=== PATIENT | male | born 1955 | race Caucasian/White ===

== ENCOUNTER 2017-09-30 17:13 | Emergency (ER) | payer MEDICAID, SELFPAY ==
[2017-09-30 17:15] VITALS: BP 145/78; PULSE 83; RESP 16; TEMP 36.6; O2SAT 97; BMI 28.0
--- NOTE | 2017-09-30 18:18 | ED.DCSUM_ITS ---
- ER Visit Summary Date of Service: 09/30/17 Chief Complaint: Postop pain History of Present Illness: The patient is a 62 M who had skin cancer removed from his upper back yesterday at the [facility]. Patient states he was told to take Tylenol ibuprofen but that is not controlling his pain. He has not noted fever or drainage from the wound. Physical Examination: Vital signs are unremarkable. Patient sitting on the side of the bed. He is in no acute distress. Head neck examination is significant for cataract to the right eye. Heart is regular rate and rhythm. Lung sounds are clear. Abdomen is soft nontender. Back examination was a 5 cm linear incision with 7 intact sutures over the upper back. There is no surrounding erythema. There is no drainage from the wound. Test Results: [] Emergency Department Course and Treatment: I did do an oars report. Patient has had no prescriptions the past year and his last prescription and orders was in 2014. Patient be given a short course of Ruffin with first dose given here. Treatment Plan: [] Disposition: Discharge Impression: Postop pain This note was generated with [employer] dictation software. It may contain incorrect words, spelling, and punctuation that were not noted in review of the chart prior to signing ED Disposition - Plan for ED Patient: Disposition: Home or Assisted Living Chief Complaint: Other, Pain/Inj Instructions: ED Post Op Pain Prescriptions: Hydrocodone Bitart/Apap 5-325 [Ruffin 5/325] 1 - 2 tablet PO Q6H PRN PRN 4 Days # 20 tablet PRN Reason: Pain Additional Instructions: Follow-up with your surgeon
--- NOTE | 2017-09-30 18:18 | ED.DEP ---
ED Disposition - Plan for ED Patient: Disposition: Home or Assisted Living Chief Complaint: Other, Pain/Inj Instructions: ED Post Op Pain Prescriptions: Hydrocodone Bitart/Apap 5-325 [[place] 5/325] 1 - 2 tablet PO Q6H PRN PRN 4 Days #20 tablet PRN Reason: Pain Additional Instructions: Follow-up with your surgeon
--- NOTE | 2017-09-30 18:22 | DCINST.ED_ITS ---
ED Disposition - Plan for ED Patient: Disposition: Home or Assisted Living Chief Complaint: Other, Pain/Inj Instructions: ED Post Op Pain Prescriptions: Hydrocodone Bitart/Apap 5-325 [[place] 5/325] 1 - 2 tablet PO Q6H PRN PRN 4 Days # 20 tablet PRN Reason: Pain Additional Instructions: Follow-up with your surgeon
[2017-09-30] MEDS: HYDROcodone Bitartrate/Apap 5/325 Tablet PO (18:40)
[2017-09-30 18:43] VITALS: BP 141/67; PULSE 52; RESP 16; O2SAT 98
== END 2017-09-30 18:45 | disposition home or self-care (01) ==
PROVIDERS: Emergency Provider Emergency Medicine; Family Provider Physician Assistant; PCP Physician Assistant
DX: G89.18 Other acute postprocedural pain (principal); M54.9 Dorsalgia, unspecified; J44.9 Chronic obstructive pulmonary disease, unspecified; K21.9 Gastro-esophageal reflux disease without esophagitis; Z72.0 Tobacco use
CPT/HCPCS: 99283

== ENCOUNTER 2017-11-01 13:53 | Emergency (ER) | payer MEDICAID, SELFPAY ==
[2017-11-01 13:53] VITALS: BP 153/79; PULSE 71; RESP 16; TEMP 36.5; O2SAT 91; BMI 27.9
--- NOTE | 2017-11-01 14:00 | RAD_ITS ---
STUDY: X-RAY CHEST REASON FOR EXAM: Male, 62 years old. Cough TECHNIQUE: Single view of the chest was obtained COMPARISON: February 11, 2015 chest radiograph FINDINGS: Mild perihilar streaky opacities. Cardiac size is stable. Osseous structures demonstrate no acute abnormalities. Calcifications of the aortic knob. Apical lung scarring. Slightly elevated right hemidiaphragm. IMPRESSION: No evidence for focal airspace disease. Stable lung findings since previous examination Electronically Signed: Luis Daniel Moon, at 14:19 EDT Tel , Service support , RAD/Chest 1 View (Portable)
--- NOTE | 2017-11-01 14:02 | EKG12_ITS ---
Test Reason : COUGH Blood Pressure : / mmHG Vent. Rate : 075 BPM Atrial Rate : 075 BPM P-R Int : 164 ms QRS Dur : 094 ms QT Int : 400 ms P-R-T Axes : 067 062 029 degrees QTc Int : 446 ms Normal sinus rhythm Normal ECG Confirmed by ASHISH RAYO MD ([id number]), deputy editor in chief MAT BONDS ([id number]) on 11/04/2017 1:11:58 PM Referred By: ESTEFANIA Confirmed By:ASHISH RAYO MD
[2017-11-01] MEDS: Ipratropium/Albuterol Sulfate 3 ML AMPUL.NEB INHALATION (14:15)
[2017-11-01 14:16] VITALS: PULSE 72; RESP 18
--- NOTE | 2017-11-01 14:27 | ED.DCSUM_ITS ---
- ER Visit Summary Date of Service: 11/01/17 Chief Complaint: [] Chronic cough for weeks history of COPD History of Present Illness: The patient is a 62 M [] history of COPD chronic cough for weeks thick slightly blood-tinged. 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 He indicates he is on inhalers for COPD he presents because of the persistence of the harsh cough no runny nose no fever no history of [place] PE CHF no edema no weight gain Physical Examination: [] He has a cataract in the right eye related to a retinal detachment he is blind in that he is awake alert he has a harsh dry cough here his nose is clear the throat is unremarkable the neck is supple he has some rhonchi and wheezing diffusely but good excursion heart tones are normal the abdomen soft nontender upper lower extremity unremarkable he is awake alert moving all 4 Test Results: [] Emergency Department Course and Treatment: [] Patient's EKG shows a sinus rhythm nothing acute his chest x-ray and labs are generally unremarkable see those reports clinically he looks better he states he feels better he is no longer coughing, he has his inhalers at home, he will be given Kenalog 40 mg IM started on Levaquin 5 with his doctors the next 2 days return for change in symptoms he is very comfort this plan again feels better wants to go home Treatment Plan: [] Disposition: [] Home stable Impression: [] Acute exacerbation of COPD improved This note was generated with [employer] dictation software. It may contain incorrect words, spelling, and punctuation that were not noted in review of the chart prior to signing ED Disposition - Plan for ED Patient: Chief Complaint: Cough Referrals: Ric Coronado PA [Primary Care Provider] -
[2017-11-01] MEDS: 0.9% Normal Saline 1,000 ML 150 ML IV (14:30)
[2017-11-01 14:40] LABS: Absolute Lymphocyte Count 2.38 X10^3/ul (0.83-4.51); Absolute Neutrophil Count 6.3 X10^3/uL (2.0-7.7); Basophil# 0.05 X10^3/uL; Basophil% 0.5 % (0-1); Eosinophil# 0.27 X10^3/uL; Eosinophils% 2.7 % (0-5); Hematocrit 43.9 % (40-54); Hemoglobin 15.3 g/dl (13.0-16.5); Lymphocyte # 2.38 X10^3/ul (4.0); Lymphocyte % 23.4 % (19-41); Mean Corp Hgb Conc 34.9 g/gl (32-36); Mean Corpuscular Hgb 31.6 pg (27.0-32.0); Mean Corpuscular Volume 90.7 fL (80-94); Mean Platelet Vol. 11.5 fl (6.2-12.0); Monocyte# 1.18 X10^3/uL; Monocyte% 11.6 % (0-10); Neutrophil # 6.26 X10^3/uL (2.7-7.7); Neutrophil % 61.6 % (47-70); POSITIVE COUNT NO; POSITIVE DIFFERENTIAL NO; POSITIVE MORPHOLOGY NO; Platelet Count 261 K/mm3 (150-450); RBC Distribution Width CV 14.4 % (11.6-14.6); RBC Distribution Width SD 47.6 fl (35.1-43.9); Red Blood Count 4.84 M/mm3 (4.6-6.2); White Blood Count 10.2 K/mm3 (4.4-11.0)
[2017-11-01 14:44] VITALS: BP 149/75; PULSE 67; RESP 16; O2SAT 98
[2017-11-01 14:53] LABS: Anion Gap 6 (5-15); BUN 4 mg/dL (7-18); Calcium,Total 9.3 mg/dL (8.5-10.1); Chloride 106 mmol/L (98-107); Creatinine, Serum 0.81 mg/dL (0.70-1.30); EST Glomerular Filtration Rate 104 mL/min (>60); Est Glom Filt Rate - Afr Amer 126 mL/min (>60); Glucose 89 mg/dL (74-106); Potassium 3.8 mmol/L (3.5-5.1); Sodium Level 137 mmol/L (136-145)
--- NOTE | 2017-11-01 16:09 | ED.DEP ---
ED Disposition - Plan for ED Patient: Chief Complaint: Cough Instructions: ED Upper Resp Infec Abx Tx, ED COPD Flare Prescriptions: Levofloxacin [Levaquin] 750 mg PO DAILY #10 tab Referrals: Ric Coronado PA [Primary Care Provider] -
[2017-11-01 16:24] LABS: BNP,B-Type NATRIURETIC PEPTIDE 47.2 pg/mL (0-100)
[2017-11-01] MEDS: Triamcinolone Acetonide 40 MG/ML Vial IM (16:42)
[2017-11-01 16:49] VITALS: BP 173/79; PULSE 88; RESP 16; O2SAT 97
== END 2017-11-01 16:50 | disposition home or self-care (01) ==
PROVIDERS: Emergency Provider Emergency Medicine; Family Provider Physician Assistant; PCP Physician Assistant
DX: J44.1 Chronic obstructive pulmonary disease with (acute) exacerbation (principal); H54.40 Blindness, one eye, unspecified eye; H33.21 Serous retinal detachment, right eye
CPT/HCPCS: 71045; 80048; 83880; 84484; 85025; 93005; 94640; 96360; 96361; 96372; 99285; J7030; A4216

== ENCOUNTER 2018-01-14 05:37 | Emergency (ER) | payer MEDICAID, SELFPAY ==
[2018-01-14 05:37] VITALS: BP 163/87; PULSE 68; RESP 20; TEMP 36.9; O2SAT 99; BMI 29.7
--- NOTE | 2018-01-14 05:47 | CT_ITS ---
STUDY: CT ABDOMEN AND PELVIS WITH CONTRAST REASON FOR EXAM: Male, 62 years old. Abdominal pain and pressure. History of cirrhosis RADIATION DOSAGE (If Supplied By Facility): CTDIvol = ( 14.27 ) mGy, DLP = ( 1105.19 ) mGycm TECHNIQUE: Transaxial images were obtained from the dome of the diaphragm to the symphysis pubis with oral contrast. 100CC ml of Isovue 300 contrast was administered. Sagittal and coronal images were reconstructed. Individualized dose optimization techniques were used for this CT. COMPARISON: None. FINDINGS: The visualized lung bases are unremarkable. The visualized portions of the heart are within normal limits. Enlarged and heterogeneously enhancing liver with nodular contour suggesting cirrhosis. Normal gallbladder and extrahepatic biliary system. Normal spleen. Normal pancreas. Normal bilateral adrenal glands. Normal right kidney. Normal left kidney. Normal visualized stomach. Normal small intestine. There are multiple colonic diverticula consistent with diverticulosis. There is non-visualization of the appendix. There is diffuse atherosclerotic calcification of the abdominal aorta, without a demonstrated aneurysm. Normal inferior vena cava. Normal retroperitoneum. Normal urinary bladder. Normal visualized prostate gland. Fat-containing umbilical hernia with some areas of inflammation and also possibly containing a small vessel.. There are diffuse degenerative changes of the visualized lumbar spine. Cystic structure within the soft tissues overlying the right mid back measuring 4 x 2.8 cm, likely sebaceous cyst. CT/Abdomen/Pelvis WITH Contrast IMPRESSION: 1. Fat-containing umbilical hernia also containing a small vessel with some inflammation. 2. Cirrhotic appearance of the liver 3. No evidence of small bowel obstruction 4. Likely sebaceous cyst within the subcutaneous fat of the back Electronically Signed: Edis Alfaro DO at 7:49 EDT Tel , Service support ,
[2018-01-14] MEDS: 0.9% Normal Saline 1,000 ML 1000 ML IV (05:58)
[2018-01-14] MEDS: fentaNYL 100 MCG/2 ML Ampul 50 MCG IV ×2 (05:58→07:35)
[2018-01-14] MEDS: Ondansetron 4 MG/2 ML Vial IV (05:58)
--- NOTE | 2018-01-14 06:03 | ED.VISSUMM ---
- ER Visit Summary Date of Service: 01/14/18 Chief Complaint: Abdominal pain and History of Present Illness: The patient is a 62 M presents to the emergency department with abdominal pain and swelling. The patient has a history of hepatitis C. He states this was diagnosed about a year ago. The patient states that he has been following with Dr. Nunez, a GI specialist the [facility]. He states that he was seen about a week ago and was told that he may have cirrhosis. He is scheduled for an outpatient ultrasound, but has not had it done. He states over the past 2 days, he has had some increasing abdominal pain and fullness. He has been nauseated without vomiting. He denies any fevers or chills. Patient has had a prior history of appendectomy, but denies any other abdominal surgery. He has had no GI bleeding. He denies any shortness of breath. Physical Examination: Vital signs reviewed General: Well-nourished, well-developed Head: Normocephalic, atraumatic Eyes: Pupils equal and reactive, extraocular muscles intact Neck, supple, no lymphadenopathy Heart: Regular rate and rhythm Respiratory: No distress, clear bilaterally Abdomen: Soft, mildly tender in the right upper quadrant without rebound or guarding, nondistended, no peritoneal signs Back: Nontender Extremities: Nontender, no edema, no cords Skin: Normal color no rash Neuro: Alert and oriented, no focal or lateralizing deficits Test Results: [] Emergency Department Course and Treatment: The patient does not have evidence of significant ascites on physical examination. His abdomen is softly distended, but he is tender in his right upper quadrant. He has been nausea without vomiting. The patient will undergo screening labs. Is given analgesics and antiemetics. I am going to obtain a CT of the abdomen and pelvis to rule out dangerous process. This will be signed out to oncoming physician for disposition pending completion of the CT. I did review the CT, but the read is pending. There is some distention of the gallbladder. Patient will undergo right upper quadrant ultrasound. Treatment Plan: [] Disposition: Pending Impression: Abdominal pain This note was generated with [employer] dictation software. It may contain incorrect words, spelling, and punctuation that were not noted in review of the chart prior to signing ED Disposition - Plan for ED Patient: Chief Complaint: Abd Pain Referrals: Ric Coronado PA [Primary Care Provider] -
--- NOTE | 2018-01-14 06:06 | ED.DCSUM_ITS ---
- ER Visit Summary Date of Service: 01/14/18 Chief Complaint: Abdominal pain and History of Present Illness: The patient is a 62 M presents to the emergency department with abdominal pain and swelling. The patient has a history of hepatitis C. He states this was diagnosed about a year ago. The patient states that he has been following with Dr. Nunez, a GI specialist the [facility]. He states that he was seen about a week ago and was told that he may have cirrhosis. He is scheduled for an outpatient ultrasound, but has not had it done. He states over the past 2 days, he has had some increasing abdominal pain and fullness. He has been nauseated without vomiting. He denies any fevers or chills. Patient has had a prior history of appendectomy, but denies any other abdominal surgery. He has had no GI bleeding. He denies any shortness of breath. Physical Examination: Vital signs reviewed General: Well-nourished, well-developed Head: Normocephalic, atraumatic Eyes: Pupils equal and reactive, extraocular muscles intact Neck, supple, no lymphadenopathy Heart: Regular rate and rhythm Respiratory: No distress, clear bilaterally Abdomen: Soft, mildly tender in the right upper quadrant without rebound or guarding, nondistended, no peritoneal signs Back: Nontender Extremities: Nontender, no edema, no cords Skin: Normal color no rash Neuro: Alert and oriented, no focal or lateralizing deficits Test Results: [] Emergency Department Course and Treatment: The patient does not have evidence of significant ascites on physical examination. His abdomen is softly distended , but he is tender in his right upper quadrant. He has been nausea without vomiting. The patient will undergo screening labs. Is given analgesics and antiemetics. I am going to obtain a CT of the abdomen and pelvis to rule out dangerous process. This will be signed out to oncoming physician for disposition pending completion of the CT. I did review the CT, but the read is pending. There is some distention of the gallbladder. Patient will undergo right upper quadrant ultrasound. Treatment Plan: [] Disposition: Pending Impression: Abdominal pain This note was generated with [employer] dictation software. It may contain incorrect words, spelling, and punctuation that were not noted in review of the chart prior to signing ED Disposition - Plan for ED Patient: Chief Complaint: Abd Pain Referrals: Ric Coronado PA [Primary Care Provider] -
[2018-01-14 06:08] LABS: International Normalized Ratio 1.3; Prothrombin Time (Protime)PT. 15.9 SECONDS (11.7-14.9)
[2018-01-14 06:09] LABS: Partial Thromboplast Time 35.4 Seconds (24.1-36.2)
[2018-01-14 06:18] LABS: Mucous, Urine 0 SEEN /hpf (<or=2+); Red Blood Cells-Urine 0 SEEN /hpf (0-5); Squamous Epithelial Cells - UA 0 SEEN /hpf (0-5); White Blood Cells 0 SEEN /hpf (0-5)
[2018-01-14 06:18] LABS: ALB/GLOB Ratio 0.8 RATIO (0.9-2.4); AST(SGOT) 91 U/L (15-37); Alanine Aminotransfer ALT/SGPT 61 U/L (16-61); Albumin, Serum 3.2 g/dL (3.2-5.0); Alkaline Phosphatase 159 U/L (45-117); Anion Gap 7 (5-15); BUN 5 mg/dL (7-18); BUN/Creat Ratio 6.5 RATIO (10-20); Calcium,Total 8.8 mg/dL (8.5-10.1); Chloride 104 mmol/L (98-107); Creatinine, Serum 0.77 mg/dL (0.70-1.30); EST Glomerular Filtration Rate 110 mL/min (>60); Est Glom Filt Rate - Afr Amer 133 mL/min (>60); Estimated Creatinine Clearance 111.98 ml/min; Globulin 4.2 g/dL (2.2-4.2); Glucose 96 mg/dL (74-106); Lipase 303 U/L (73-393); Potassium 3.6 mmol/L (3.5-5.1); Protein, Total 7.4 g/dL (6.4-8.2); Sodium Level 139 mmol/L (136-145)
[2018-01-14 06:23] LABS: Absolute Lymphocyte Count 2.02 X10^3/ul (0.83-4.51); Absolute Neutrophil Count 5.9 X10^3/uL (2.0-7.7); Basophil# 0.07 X10^3/uL; Basophil% 0.7 % (0-1); Hematocrit 40.9 % (40-54); Hemoglobin 14.4 g/dl (13.0-16.5); Lymphocyte # 2.02 X10^3/ul (4.0); Lymphocyte % 20.5 % (19-41); Mean Corp Hgb Conc 35.2 g/gl (32-36); Mean Corpuscular Hgb 31.6 pg (27.0-32.0); Mean Corpuscular Volume 89.9 fL (80-94); Mean Platelet Vol. 11.7 fl (6.2-12.0); Monocyte# 1.64 X10^3/uL; Monocyte% 16.6 % (0-10); Neutrophil # 5.89 X10^3/uL (2.7-7.7); Neutrophil % 59.9 % (47-70); Platelet Count 202 K/mm3 (150-450); RBC Distribution Width SD 51.8 fl (35.1-43.9); Red Blood Count 4.55 M/mm3 (4.6-6.2); White Blood Count 9.9 K/mm3 (4.4-11.0)
[2018-01-14 06:25] LABS: Color, Urine Yellow (Yellow); Glucose, Dipstick Normal (Normal); Ketone-Dipstick Negative (Negative); Leukocyte Esterase-Dipstick Negative /ul (Negative); Nitrite-Dipstick Negative (Negative); Occult Blood-Urine Negative /ul (Negative); Protein-Dipstick Negative (Negative); Urine Bilirubin Dipstick Negative (Negative); Urine Clarity Clear (Clear); Urine Urobilinogen Normal (Normal)
[2018-01-14 06:37] LABS: Bacteria RARE /hpf (None Seen)
[2018-01-14 06:48] LABS: Differential Indicated SCAN CRITERIA MET; POSITIVE COUNT NO; POSITIVE DIFFERENTIAL YES; POSITIVE MORPHOLOGY NO
[2018-01-14 07:00] LABS: Differential Comment SCANNED
--- NOTE | 2018-01-14 07:20 | US_ITS ---
STUDY: ABDOMINAL ULTRASOUND - RIGHT UPPER QUADRANT REASON FOR VISIT: Male, 62 years old. Cholelithiasis TECHNIQUE: Ultrasound evaluation of the right upper quadrant was performed with real-time and static garcia-scale imaging. TECHNICAL QUALITY: Limited. Examination limited by bowel gas. COMPARISON: None. FINDINGS: Liver: The liver measures 18.8 cm. There is increased echogenicity consistent with fatty infiltration. The bile ducts are within normal limits. There is hepatic color flow. The direction of portal flow is hepatopetal. There is no demonstrated mass lesion. Gallbladder: Normal distended gallbladder. The gallbladder wall measures 3.3 mm. There is a positive sonographic Elizondo's sign. There is no pericholecystic fluid. There is biliary sludge dependent within the gallbladder. Common Bile Duct (C.B.D.): The common bile duct measures 8.0 mm. Pancreas: There is nonvisualization of the pancreas. Right Kidney: Normal size of the right kidney. The right kidney measures 11.7 cm. Normal renal cortex. The right cortex measures 1.0 cm. There is no demonstrated renal mass or cyst. There is no right hydronephrosis. US/Gallbladder IMPRESSION: Mild fatty infiltration of the liver. Gallbladder sludge with borderline wall thickening. Patient demonstrates positive sonographic Elizondo sign. No pericholecystic fluid. Electronically Signed: Edis Alfaro DO at 8:23 EDT Tel , Service support ,
[2018-01-14 07:27] VITALS: BP 175/73; PULSE 63; RESP 16; O2SAT 99
[2018-01-14] MEDS: Ketorolac 15 MG/ML Vial IV (07:35)
[2018-01-14 08:51] VITALS: BP 166/80; PULSE 62; RESP 16; O2SAT 98
--- NOTE | 2018-01-14 08:52 | ED.RN ---
REPORTS ITCHING TO TOP OF HEAD AND RED RASH- DR RAAUZ INFORMED AND BENADRYL ORDERED
[2018-01-14] MEDS: DiphenhydrAMINE 50 MG/ML Syringe 25 MG IV (08:55)
--- NOTE | 2018-01-14 09:33 | ED.DEP ---
ED Disposition - Plan for ED Patient: Chief Complaint: Abd Pain Instructions: ED Abdominal Pain Unkn Cause Male Prescriptions: Oxycodone [Oxyir] 5 mg PO Q6H PRN PRN 3 Days #10 tablet PRN Reason: Pain Ondansetron [Zofran Odt] 4 mg PO Q8H PRN PRN #10 tablet PRN Reason: Nausea Referrals: Zayda Garay MD [STAFF PHYSICIAN] - 2 Days Additional Instructions: Dr. Garay is recommending you have drain placed in gallbladder to relieve distension. You can return to the emergency department at any time or follow up with Dr. Garay in the office.
[2018-01-14 09:58] VITALS: BP 165/79; PULSE 65; RESP 16; O2SAT 98
== END 2018-01-14 09:59 | disposition home or self-care (01) ==
LOC: ED 05:58
PROVIDERS: Emergency Provider Emergency Medicine; Family Provider Physician Assistant; PCP Physician Assistant
DX: R10.9 Unspecified abdominal pain (principal); Z86.19 Personal history of other infectious and parasitic diseases; R11.0 Nausea; J44.9 Chronic obstructive pulmonary disease, unspecified; I10 Essential (primary) hypertension; K21.9 Gastro-esophageal reflux disease without esophagitis; Z72.0 Tobacco use
CPT/HCPCS: 74177; 76705; 80053; 81001; 83690; 85025; 85610; 85730; 99284; J7030; Q9967; A4216; J2405

== ENCOUNTER 2018-01-19 17:51 | Emergency (ER) | payer MEDICAID, SELFPAY ==
[2018-01-19 17:51] VITALS: BP 138/89; PULSE 70; RESP 18; TEMP 36.9; O2SAT 98; BMI 28.5
[2018-01-19 18:50] LABS: Absolute Lymphocyte Count 1.98 X10^3/ul (0.83-4.51); Absolute Neutrophil Count 4.2 X10^3/uL (2.0-7.7); Basophil# 0.06 X10^3/uL; Basophil% 0.8 % (0-1); Eosinophil# 0.23 X10^3/uL; Hematocrit 39.5 % (40-54); Hemoglobin 14.1 g/dl (13.0-16.5); Lymphocyte # 1.98 X10^3/ul (4.0); Lymphocyte % 25.6 % (19-41); Mean Corp Hgb Conc 35.7 g/gl (32-36); Mean Corpuscular Volume 89.6 fL (80-94); Mean Platelet Vol. 12.2 fl (6.2-12.0); Monocyte# 1.23 X10^3/uL; Monocyte% 15.9 % (0-10); Neutrophil % 54.4 % (47-70); POSITIVE COUNT NO; POSITIVE DIFFERENTIAL NO; POSITIVE MORPHOLOGY NO; Platelet Count 198 K/mm3 (150-450); RBC Distribution Width CV 15.5 % (11.6-14.6); RBC Distribution Width SD 50.6 fl (35.1-43.9); Red Blood Count 4.41 M/mm3 (4.6-6.2); White Blood Count 7.7 K/mm3 (4.4-11.0)
[2018-01-19 19:06] LABS: ALB/GLOB Ratio 0.8 RATIO (0.9-2.4); AST(SGOT) 69 U/L (15-37); Alanine Aminotransfer ALT/SGPT 49 U/L (16-61); Alkaline Phosphatase 146 U/L (45-117); Anion Gap 5 (5-15); BUN 4 mg/dL (7-18); BUN/Creat Ratio 5.1 RATIO (10-20); Calcium,Total 9.1 mg/dL (8.5-10.1); Chloride 107 mmol/L (98-107); Creatinine, Serum 0.78 mg/dL (0.70-1.30); EST Glomerular Filtration Rate 108 mL/min (>60); Est Glom Filt Rate - Afr Amer 131 mL/min (>60); Estimated Creatinine Clearance 113.82 ml/min; Globulin 3.9 g/dL (2.2-4.2); Glucose 99 mg/dL (74-106); Lipase 265 U/L (73-393); Potassium 3.5 mmol/L (3.5-5.1); Protein, Total 6.9 g/dL (6.4-8.2); Sodium Level 140 mmol/L (136-145)
[2018-01-19] MEDS: Morphine 4 MG/ML Syringe IV (19:09)
[2018-01-19] MEDS: Ondansetron 4 MG/2 ML Vial IV (19:09)
--- NOTE | 2018-01-19 20:59 | ED.DCSUM_ITS ---
- ER Visit Summary Date of Service: 01/19/18 Chief Complaint: Abdominal pain History of Present Illness: The patient is a 62 M patient presenting for evaluation secondary to abdominal pain. Patient has an underlying history of hepatitis C and cirrhosis. Patient states over the course last week he has been dealing with abdominal pain in his right upper quadrant, it is continuous worse with palpation. He denies any's had any presence of fevers nausea vomiting or diarrhea. He was seen in the emerge C department for this week ago , and a surgical consult they recommended the patient receive a percutaneous drain of his gallbladder. Patient did not wish to be transferred for this, and opted to sign out AGAINST MEDICAL ADVICE and follow-up with Dr. Garay general surgery on Friday. She informed him that if he gets worse he needs to go to a tertiary care center where he could have a percutaneous drain placed, but did not mention anything about staging for removal of his gallbladder. Patient was confused by this, and states that he has been having persistent pain so he came back in today for repeat evaluation. Physical Examination: Physical exam unremarkable except for abdominal exam. Patient's abdomen is minimally distended with no guarding or rebound tenderness. There is tenderness in the right upper quadrant with positive Elizondo sign. Test Results: CBC unremarkable, chemistry shows evidence of elevated total bilirubin at 2.3. I reviewed the patient's ultrasound which shows gallbladder sludge with borderline wall thickening and no pericholecystic fluid last week Emergency Department Course and Treatment: Patient presented for evaluation secondary to continued abdominal pain. Patient does not have evidence of cholecystitis at this time is does not have significantly elevated liver enzymes , does not have elevated white blood cell count, and his pain really has not changed. I reviewed the patient's case with Dr. Tenorio, who was able to access the patient's records and it is thought that given the patient's hepatitis C and cirrhosis that he potentially is a 2 complicated case to be managed at this facility and potentially will be required to be staged for removal of his gallbladder at a later date a tertiary care center. He is already getting workup for his cirrhosis at [facility], patient was recommended to continue this workup. He was sent home with a very short course of [place]. Disposition: Discharge Impression: 1. Right upper quadrant abdominal pain This note was generated with [employer] dictation software. It may contain incorrect words, spelling, and punctuation that were not noted in review of the chart prior to signing ED Disposition - Plan for ED Patient: Disposition: Home or Assisted Living Chief Complaint: Abd Pain Diagnosis: Abdominal pain Instructions: ED Abdominal Pain Unkn Cause Prescriptions: Hydrocodone Bitart/Apap 5-325 [[place] 5MG-325MG] 1 tab PO Q6H PRN PRN 3 Days #12 tab PRN Reason: Pain Additional Instructions: Followup with Dr. Nunez in [place]
[2018-01-19 21:17] VITALS: BP 139/77; PULSE 71; O2SAT 97
[2018-01-19] MEDS: HYDROcodone Bitartrate/Apap 5/325 Tablet PO (21:20)
== END 2018-01-19 21:24 | disposition home or self-care (01) ==
PROVIDERS: Emergency Provider Emergency Medicine; Family Provider Physician Assistant; PCP Physician Assistant
DX: R10.9 Unspecified abdominal pain (principal); R10.11 Right upper quadrant pain; Z86.19 Personal history of other infectious and parasitic diseases
CPT/HCPCS: 80053; 83690; 85025; 96374; 96375; 99284; J2405

== ENCOUNTER 2018-01-26 16:12 | Emergency (ER) | payer MEDICAID, SELFPAY ==
[2018-01-26 16:13] VITALS: BP 138/89; PULSE 83; RESP 18; TEMP 37; O2SAT 98; BMI 28.0
--- NOTE | 2018-01-26 16:29 | VDLE_ITS ---
Reason For Study: LEG SWELLING RIGHT GSV is normal. CFV is compressible, spontaneous, phasic, competent and demonstrates normal augmentation. FV is compressible, spontaneous, phasic, competent and demonstrates normal augmentation. POP V is compressible, spontaneous, phasic, competent and demonstrates normal augmentation. T/P Trunk is compressible. PTV is compressible. RT PerV is compressible. Procedure Exam performed portable in ED. A preliminary report was called and/or faxed to ED Dr. Interpretation Summary There is no evidence of right lower extremity deep vein thrombosis. Right greater saphenous vein appears patent and compressible segmentally. Ordering Physician: Estiven Aquino Referring Physician: Kush Coronado Performed By: Janessa Michel RVT
--- NOTE | 2018-01-26 16:30 | ED.VISSUMM ---
- ER Visit Summary Date of Service: 01/26/18 Chief Complaint: Abdominal pain History of Present Illness: The patient is a 62 M who presents with abdominal pain is been gone on chronically worse in the last 3 weeks apparently has some gallbladder issues but because of his cirrhosis he cannot get that surgery really. He also told me that his right leg was swollen about 5 days ago however that improved. No fever chills no cough no congestion. He practically told me that he is here because he is hurting and cannot get any pain control anywhere. Physical Examination: Not appear in acute distress. Moist mucous membranes, no obvious facial deformity No C-spine tenderness supple neck. Regular rate and rhythm without any obvious murmurs Clear lungs bilaterally speaking in full sentences without any obvious respiratory distress Abdomen soft and slight right upper quadrant pain no guarding or rebound no fluid wave Moves all extremities without any difficulty or pain. Skin does not show any obvious rashes or lesions, no trauma. Alert oriented ?3 with no gross focal deficit Emergency Department Course and Treatment: [Patient has an unremarkable DVT study, his blood work is unremarkable except for hyperbilirubinemia. He appears well he wants pain control which I will provide. Otherwise needs to follow-up. 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 It may contain incorrect words, spelling, and punctuation that were not noted in review of the chart prior to signing ED Disposition - Plan for ED Patient: Disposition: Home or Assisted Living Chief Complaint: Abd Pain Instructions: ED Abdominal Pain Unkn Cause Prescriptions: Hydrocodone Bitart/Apap 5-325 [[place] 5/325] 1 - 2 tab PO Q4H PRN PRN #12 tab PRN Reason: Pain Referrals: Ric Coronado PA [Primary Care Provider] -
--- NOTE | 2018-01-26 16:33 | ED.DCSUM_ITS ---
- ER Visit Summary Date of Service: 01/26/18 Chief Complaint: Abdominal pain History of Present Illness: The patient is a 62 M who presents with abdominal pain is been gone on chronically worse in the last 3 weeks apparently has some gallbladder issues but because of his cirrhosis he cannot get that surgery really. He also told me that his right leg was swollen about 5 days ago however that improved. No fever chills no cough no congestion. He practically told me that he is here because he is hurting and cannot get any pain control anywhere. Physical Examination: Not appear in acute distress. Moist mucous membranes, no obvious facial deformity No C-spine tenderness supple neck. Regular rate and rhythm without any obvious murmurs Clear lungs bilaterally speaking in full sentences without any obvious respiratory distress Abdomen soft and slight right upper quadrant pain no guarding or rebound no fluid wave Moves all extremities without any difficulty or pain. Skin does not show any obvious rashes or lesions, no trauma. Alert oriented ?3 with no gross focal deficit Emergency Department Course and Treatment: [Patient has an unremarkable DVT study, his blood work is unremarkable except for hyperbilirubinemia. He appears well he wants pain control which I will provide. Otherwise needs to follow-up. 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 It may contain incorrect words, spelling, and punctuation that were not noted in review of the chart prior to signing ED Disposition - Plan for ED Patient: Disposition: Home or Assisted Living Chief Complaint: Abd Pain Instructions: ED Abdominal Pain Unkn Cause Prescriptions: Hydrocodone Bitart/Apap 5-325 [[place] 5/325] 1 - 2 tab PO Q4H PRN PRN #12 tab PRN Reason: Pain Referrals: Ric Coronado PA [Primary Care Provider] -
[2018-01-26 17:07] LABS: ALB/GLOB Ratio 0.7 RATIO (0.9-2.4); AST(SGOT) 65 U/L (15-37); Alanine Aminotransfer ALT/SGPT 45 U/L (16-61); Albumin, Serum 2.9 g/dL (3.2-5.0); Alkaline Phosphatase 156 U/L (45-117); Anion Gap 7 (5-15); BUN 4 mg/dL (7-18); BUN/Creat Ratio 5.2 RATIO (10-20); Calcium,Total 8.6 mg/dL (8.5-10.1); Chloride 108 mmol/L (98-107); Creatinine, Serum 0.77 mg/dL (0.70-1.30); EST Glomerular Filtration Rate 110 mL/min (>60); Est Glom Filt Rate - Afr Amer 133 mL/min (>60); Globulin 4.4 g/dL (2.2-4.2); Glucose 105 mg/dL (74-106); Lipase 212 U/L (73-393); Potassium 3.4 mmol/L (3.5-5.1); Protein, Total 7.3 g/dL (6.4-8.2); Sodium Level 140 mmol/L (136-145)
[2018-01-26 18:34] VITALS: BP 156/77; PULSE 73; RESP 16; O2SAT 97
== END 2018-01-26 18:35 | disposition home or self-care (01) ==
PROVIDERS: Emergency Provider Emergency Medicine; Family Provider Physician Assistant; PCP Physician Assistant
DX: R10.9 Unspecified abdominal pain (principal); G89.29 Other chronic pain; K74.60 Unspecified cirrhosis of liver; B19.20 Unspecified viral hepatitis C without hepatic coma
CPT/HCPCS: 80053; 83690; 93971; 99283; A4216

== ENCOUNTER 2018-01-31 20:43 | Emergency (ER) | payer MEDICAID, SELFPAY ==
[2018-01-31 20:45] VITALS: BP 144/71; PULSE 81; RESP 18; TEMP 36.8; O2SAT 98; BMI 28.6
--- NOTE | 2018-01-31 21:09 | ED.VISSUMM ---
- ER Visit Summary Date of Service: 01/31/18 Chief Complaint: Right lower extremity swelling History of Present Illness: The patient is a 62 M recently diagnosed with cirrhosis. Patient complains of right leg swelling for the past couple of weeks. He was seen in the ER for the same on January 26 and had a negative DVT study. Patient states his leg is still swollen and is now swollen down onto the top of his foot. He describes the pain as throbbing. He has not been elevating his legs. He does admit that the swelling seems to be better when he first gets up in the morning and then worsens throughout the day. Physical Examination: Vital signs unremarkable. Patient sitting upright in bed no acute distress. Heart is regular rate and rhythm. Lower extreme examination reveals 2+ edema to the right lower extremity distal to the knee. There is 3+ edema to the right foot. Normal skin coloration is noted. He has strong distal pulses. Test Results: [] Emergency Department Course and Treatment: Alex wrap with gentle compression is applied from the foot to the knee. He is to elevate his feet tonight. He is given a single dose of [place] here without further prescription. He will return tomorrow for repeat DVT study, although my suspicion is low as he did have a negative study last week. Treatment Plan: [] Disposition: Discharge Impression: Lower extremity edema This note was generated with [employer] dictation software. It may contain incorrect words, spelling, and punctuation that were not noted in review of the chart prior to signing ED Disposition - Plan for ED Patient: Chief Complaint: Lower Extremity Injury Referrals: Ric Coronado PA [Primary Care Provider] -
--- NOTE | 2018-01-31 21:12 | ED.DEP ---
ED Disposition - Plan for ED Patient: Disposition: Home or Assisted Living Chief Complaint: Lower Extremity Injury Instructions: ED Leg Swelling Unilateral Referrals: Ric Coronado PA [Primary Care Provider] - 5-7 Days
[2018-01-31 21:26] VITALS: BP 135/80; PULSE 85; RESP 14; O2SAT 99
[2018-01-31] MEDS: HYDROcodone Bitartrate/Apap 5/325 Tablet PO (21:29)
== END 2018-01-31 21:30 | disposition home or self-care (01) ==
PROVIDERS: Emergency Provider Emergency Medicine; Family Provider Physician Assistant; PCP Physician Assistant
DX: R60.0 Localized edema (principal); K74.60 Unspecified cirrhosis of liver; K21.9 Gastro-esophageal reflux disease without esophagitis; I10 Essential (primary) hypertension; E78.00 Pure hypercholesterolemia, unspecified; J44.9 Chronic obstructive pulmonary disease, unspecified; Z72.0 Tobacco use
CPT/HCPCS: 99283

== ENCOUNTER 2018-02-09 18:02 | Emergency (ER) | payer MEDICAID, SELFPAY ==
[2018-02-09 18:03] VITALS: BP 136/76; PULSE 80; RESP 18; TEMP 36.6; O2SAT 98; BMI 28.8
--- NOTE | 2018-02-09 19:12 | ED.VISSUMM ---
- ER Visit Summary Date of Service: 02/09/18 Chief Complaint: Abdominal pain History of Present Illness: The patient is a 62 M presenting with right upper quadrant abdominal pain. States this has been intermittent for the past 4 weeks. He has been seen in the ED and by Dr. Garay. He has been referred to [facility]. He states due to his cirrhosis and his hep C, Dr. Garay feels he needs a tertiary care center for his cholecystectomy. The surgeon at [facility] referred him to [facility] to see a liver specialist before surgery. He denies fever. He has nausea with no vomiting. Denies other complaints. He was previously taking [place] for his pain and ran out of his [place]away 10 days ago. Physical Examination: Vitals are stable. Patient is afebrile. Alert no acute distress. HEENT exam is unremarkable. Neck is supple. Lungs are clear and equal bilaterally. Heart is regular rate and rhythm. Abdomen is soft right upper quadrant tenderness with no rebound or guarding. Extremities are unremarkable. Skin is warm and dry. No focal neurologic deficit. Remainder of exam is unremarkable. Emergency Department Course and Treatment: Patient is given Dilaudid, Zofran IV with improvement. CBC and chemistries unremarkable. Liver enzymes show total bili 1.7, direct bili 0.9, AST 60, improved from previous. Alk phos is 205. Lipase 331. Gallbladder ultrasound shows gallbladder sludge without secondary evidence of acute cholecystitis. Patient is currently being worked up at [facility] for his liver disease and for cholecystectomy. He has an appointment with his liver specialist next week. He is advised to keep this appointment. He is given a short course of [place] for pain. Advised return to ED for any worsening complaints. Disposition: Discharge home Impression: Abdominal pain This note was generated with [employer] dictation software. It may contain incorrect words, spelling, and punctuation that were not noted in review of the chart prior to signing ED Disposition - Plan for ED Patient: Chief Complaint: Abd Pain Referrals: Ric Coronado PA [Primary Care Provider] -
[2018-02-09] MEDS: Ondansetron 4 MG/2 ML Vial IV (19:24)
[2018-02-09] MEDS: HYDROmorphone 1 MG/ML Syringe IV (19:24)
[2018-02-09 19:35] LABS: Absolute Lymphocyte Count 1.56 X10^3/ul (0.83-4.51); Absolute Neutrophil Count 4.8 X10^3/uL (2.0-7.7); Basophil# 0.05 X10^3/uL; Basophil% 0.6 % (0-1); Eosinophil# 0.22 X10^3/uL; Eosinophils% 2.7 % (0-5); Hemoglobin 13.7 g/dl (13.0-16.5); Lymphocyte # 1.56 X10^3/ul (4.0); Mean Corp Hgb Conc 34.3 g/gl (32-36); Mean Corpuscular Hgb 31.6 pg (27.0-32.0); Mean Corpuscular Volume 92.4 fL (80-94); Mean Platelet Vol. 12.3 fl (6.2-12.0); Monocyte# 1.57 X10^3/uL; Monocyte% 19.2 % (0-10); Neutrophil # 4.78 X10^3/uL (2.7-7.7); Neutrophil % 58.4 % (47-70); Platelet Count 195 K/mm3 (150-450); RBC Distribution Width CV 15.4 % (11.6-14.6); RBC Distribution Width SD 51.8 fl (35.1-43.9); Red Blood Count 4.33 M/mm3 (4.6-6.2); White Blood Count 8.2 K/mm3 (4.4-11.0)
[2018-02-09 19:48] LABS: AST(SGOT) 60 U/L (15-37); Alanine Aminotransfer ALT/SGPT 39 U/L (16-61); Albumin, Serum 3.1 g/dL (3.2-5.0); Alkaline Phosphatase 205 U/L (45-117); Anion Gap 7 (5-15); BUN 5 mg/dL (7-18); BUN/Creat Ratio 6.2 RATIO (10-20); Calcium,Total 8.3 mg/dL (8.5-10.1); Chloride 107 mmol/L (98-107); EST Glomerular Filtration Rate 104 mL/min (>60); Est Glom Filt Rate - Afr Amer 126 mL/min (>60); Estimated Creatinine Clearance 110.97 ml/min; Globulin 4.2 g/dL (2.2-4.2); Glucose 102 mg/dL (74-106); Lipase 331 U/L (73-393); Potassium 3.4 mmol/L (3.5-5.1); Protein, Total 7.3 g/dL (6.4-8.2); Sodium Level 138 mmol/L (136-145)
[2018-02-09 20:06] VITALS: BP 129/74; PULSE 75; RESP 14; O2SAT 98
[2018-02-09 20:16] LABS: Differential Indicated SCAN CRITERIA MET; POSITIVE COUNT NO; POSITIVE DIFFERENTIAL YES; POSITIVE MORPHOLOGY YES
[2018-02-09 20:21] LABS: Anisocytosis RARE; Macrocytosis RARE; Platelet Estimate ADEQUATE (ADEQ)
--- NOTE | 2018-02-09 21:58 | ED.DEP ---
ED Disposition - Plan for ED Patient: Chief Complaint: Abd Pain Instructions: ED Abdominal Pain Unkn Cause Prescriptions: Hydrocodone Bitart/Apap 5-325 [Bruce 5MG-325MG] 1 tablet PO Q6H PRN PRN 3 Days #10 tablet PRN Reason: Pain Referrals: Ric Coronado PA [Primary Care Provider] -
[2018-02-09 22:10] VITALS: BP 124/75; PULSE 72; RESP 14; O2SAT 98
[2018-02-10 15:00] LABS: Pathologist Review Reviewed
== END 2018-02-09 22:23 | disposition home or self-care (01) ==
PROVIDERS: Emergency Provider Emergency Medicine; Family Provider Physician Assistant; PCP Physician Assistant
DX: R10.11 Right upper quadrant pain (principal); I10 Essential (primary) hypertension; E78.00 Pure hypercholesterolemia, unspecified; Z72.0 Tobacco use; Z90.49 Acquired absence of other specified parts of digestive tract; K74.60 Unspecified cirrhosis of liver
CPT/HCPCS: 76705; 80048; 80076; 83690; 85025; 99283; A4216; J2405

== ENCOUNTER 2018-03-23 16:20 | Emergency (ER) | payer MEDICAID, SELFPAY ==
[2018-03-23 16:21] VITALS: BP 131/74; PULSE 84; RESP 16; TEMP 38.2; O2SAT 98; BMI 28.6
--- NOTE | 2018-03-23 16:53 | US_ITS ---
STUDY: ABDOMINAL ULTRASOUND - RIGHT UPPER QUADRANT REASON FOR VISIT: Male, 62 years old. Right upper quadrant pain TECHNIQUE: Ultrasound evaluation of the right upper quadrant was performed with real-time and static garcia-scale imaging. TECHNICAL QUALITY: Adequate. COMPARISON: 02/09/2018 FINDINGS: Liver: The liver measures 19.3 cm. There is increased echogenicity consistent with fatty infiltration. The bile ducts are within normal limits. There is hepatic color flow. The direction of portal flow is hepatopetal. There is no demonstrated mass lesion. Gallbladder: Normal distended gallbladder. The gallbladder wall measures 3 mm. There is a negative sonographic Elizondo's sign. There is no pericholecystic fluid. There are no gallstones. There is sludge again noted in the gallbladder. Common Bile Duct (C.B.D.): The common bile duct measures 8 mm. This is stable when compared with the prior exam. There are no ductal stones identified. Pancreas: Normal size of the head, body and tail of the pancreas. There is normal echogenicity of the pancreas. There is no demonstrated pancreatic mass or cyst. Right Kidney: Normal size of the right kidney. The right kidney measures 14.2 cm. Normal renal cortex. There is no demonstrated renal mass or cyst. There is no right hydronephrosis. US/Gallbladder IMPRESSION: Stable enlarged, fatty liver. No focal hepatic lesions identified. Redemonstration of gallbladder sludge. Otherwise, normal gallbladder. Stable mildly dilated common bile duct, measuring 8 mm. Electronically Signed: Ranjit Zahida, at 17:52 EDT Tel , Service support ,
--- NOTE | 2018-03-23 16:55 | ED.VIS.GEN ---
History of Present Illness Chief Complaint: Abd Pain Informant: Patient Onset: Weeks - 5-6 Context: Gradual Onset Timing: Continuous, Waxes and wanes Quality: dull Location: right mid-abd Current Severity: Severe Maximum Severity: Severe Worsened by: unknown Relieved by: nothing Associated Symptoms: n/v Narrative: Patient states he has been having this pain for 5 or 6 weeks, for about as long as he has known about having cirrhosis, presumably due to hepatitis C. He was seen here at this ER and diagnosed with gallbladder sludge that he was apparently symptomatic from, and the patient states that surgery was recommended, however given his hepatitis C, cirrhosis, and other risk factors, he was a very high risk patient and was sent to have an evaluation by a surgeon at [facility], who told him that the risks of surgery outweighed the potential benefits at the time. He has been having this pain ever since, but it became much worse last night around 20 hours ago. He has had subjective chills off and on for weeks, in addition to foul-smelling orange-discolored urine with urinary frequency for about 5 weeks. That is no different now. The pain in his right mid abdomen radiates around to his back at the same level. He has had prior appendectomy and another bowel surgery because of a small bowel obstruction, neither of those surgeries were in the past 2 months. He also has a history of COPD and has a chronic cough that is occasionally productive of phlegm. He denies any new dyspnea or chest discomfort. Prior similar symptoms: Yes - Past Medical History (1) Hepatitis C Status: Chronic (2) Hepatic cirrhosis Status: Chronic (3) Chronic obstructive lung disease Status: Chronic Past Medical History - Allergies and Home Meds Allergies/Adverse Reactions: Allergies ketorolac [From Toradol] Allergy (Verified 03/23/18 16:23) Hives morphine Adverse Reaction (Verified 03/23/18 16:23) Vomiting Primary Care Physician: Ric Coronado PA [Primary Care Provider] - Surgical History: appendectomy Smoking Status: Current every day smoker Review of Systems General: Denies: Chills, Fever, Sweats Eyes: Denies: Visual changes - bilaterally, Diplopia ENT: Denies: Bilateral ear pain, Rhinorrhea, Sore throat Cardiovascular: Denies: Chest pain, Palpitations, Heart racing Respiratory: Reports: Cough, Sputum. Denies: Dyspnea, Dyspnea on exertion, Orthopnea Gastrointestinal: Reports: Abdominal pain, Nausea, Vomiting. Denies: Diarrhea, Melena, Hematochezia Genitourinary: Reports: Frequency. Denies: Dysuria, Hematuria Musculoskeletal: Reports: Back pain, Swelling - bilat feet/ankles x 5wks. Denies: Neck pain, Extremity Pain Skin: Denies: Rash Neurological: Denies: Headache, Weakness, Numbness Psych: Denies: Suicidal thoughts, Suicidal ideations Endocrine: Denies: Polyuria, Polydipsia, Heat intolerance, Cold intolerance Allergy: Denies: Swelling of the mouth, Swelling of the tongue Physical Exam Vital Signs/Narrative: Vital Signs Temp Pulse Resp BP Pulse Ox 03/23/18 16:21 100.8 F H 84 16 131/74 H 98 Diagnostic/Tx/Re-eval Impressions Gallbladder Ultrasound 03/23/18 16:53 IMPRESSION: Stable enlarged, fatty liver. No focal hepatic lesions identified. Redemonstration of gallbladder sludge. Otherwise, normal gallbladder. Stable mildly dilated common bile duct, measuring 8 mm. Electronically Signed: Ranjit Zahida, at 17:52 EDT Tel , Service support , 03/23/18 16:53 Gallbladder [US] Stat Laboratory Results 03/23/18 03/23/18 03/23/18 16:35 16:35 17:40 WBC 9.0 RBC 4.35 L Hgb 13.6 Hct 39.6 L MCV 91.0 MCH 31.3 MCHC 34.3 RDW 14.6 RDW Differential 48.9 H Plt Count 208 MPV 12.2 H Immature Gran % (Auto) 0.200 Neut % (Auto) 69.4 Lymph % (Auto) 15.6 L Cottle % (Auto) 12.6 H Eos % (Auto) 1.5 Baso % (Auto) 0.7 Absolute Neuts (auto) 6.2 Absolute Lymphs (auto) 1.40 Total Counted Not Reportable Sodium 137 Potassium 3.1 L Chloride 104 Carbon Dioxide 24.0 Anion Gap 9 BUN 4 L Creatinine 0.80 Estim Creat Clear Calc 110.97 Est GFR (MDRD) Af Amer 127 Est GFR (MDRD) Non-Af 105 BUN/Creatinine Ratio 5.0 L Glucose 101 Calcium 8.5 Total Bilirubin 4.60 H AST 40 H ALT 24 Alkaline Phosphatase 163 H Total Protein 7.4 Albumin 3.1 L Globulin 4.3 H Albumin/Globulin Ratio 0.7 L Lipase 279 Urine Color Deanna Urine Clarity Clear Urine pH 7.0 Ur Specific [place] 1.015 Urine Protein 30 H Urine Glucose (UA) Normal Urine Ketones 15 H Urine Occult Blood 10 H Urine Nitrite Positive H Urine Bilirubin 6 H Urine Urobilinogen 12 H Ur Leukocyte Esterase 25 H Urine RBC 0-5 SEEN Urine WBC 10-25 SEEN Ur Squamous Epith Cells 5-10 SEEN Urine Bacteria 1+ Urine Mucus 1+ - Medical Decision Making Repeat ultrasound shows a negative sonographic Elizondo's, distended with sludge but otherwise unremarkable gallbladder ultrasound. His labs show significant bump in his total bilirubin at 4.7. His other liver enzymes are for the most part okay or better than 5 weeks ago. He has no leukocytosis. His urinalysis shows bilirubin, nitrite positive which could be a false positive because of bilirubin, some leukocyte esterase, and significant pyuria. He had a CT abdomen/pelvis last month that did not show anything acute. Given his fever, I think it is reasonable to treat him empirically for possible infection, culture is sent and pending. His pain was treated with fentanyl and later Dilaudid, and his pain with Zofran. This pain has been present for 5 weeks constant. There are no signs of acute cholecystitis here, and the ultrasound showed no hydronephrosis in the kidney so he does not have pyelo. I was able to discuss with Dr. Montalvo, leather products supervisor counter control operator for his doctor at [facility], Dr. Braulio Nunez, who given the scenario does not think he needs to be admitted emergently given the liver function and history of hepatitis C on new medication Mavyret. Patient is not on other new medications, including ribavirin. He recommends close outpatient follow-up with Dr. Nunez, in addition to repeat liver enzymes before the end of the week. He will call the office to request this, it is not known at this time if he has a standing order for repeat labs. Patient is comfortable with this plan. ED Disposition - Plan for ED Patient: Disposition: Home or Assisted Living Chief Complaint: Abd Pain Diagnosis: Right sided abdominal pain, Hepatitis C, Hepatic cirrhosis, Hyperbilirubinemia Instructions: ED Abdominal Pain Unkn Cause Prescriptions: proMETHazine tablet [Phenergan] 25 mg PO Q6H PRN PRN #10 tab PRN Reason: Nausea Referrals: Ric Coronado PA [Primary Care Provider] - Dr. Braulio Nunez [Other] (Call for follow-up appointment this week, as well as repeat liver enzymes to be done this week if possible. Continue your hepatitis medication as previously prescribed.)
--- NOTE | 2018-03-23 16:59 | ED.DCSUM_ITS ---
History of Present Illness Chief Complaint: Abd Pain Informant: Patient Onset: Weeks - 5-6 Context: Gradual Onset Timing: Continuous, Waxes and wanes Quality: dull Location: right mid-abd Current Severity: Severe Maximum Severity: Severe Worsened by: unknown Relieved by: nothing Associated Symptoms: n/v Narrative: Patient states he has been having this pain for 5 or 6 weeks, for about as long as he has known about having cirrhosis, presumably due to hepatitis C. He was seen here at this ER and diagnosed with gallbladder sludge that he was apparently symptomatic from, and the patient states that surgery was recommended, however given his hepatitis C, cirrhosis, and other risk factors, he was a very high risk patient and was sent to have an evaluation by a surgeon at [facility], who told him that the risks of surgery outweighed the potential benefits at the time. He has been having this pain ever since, but it became much worse last night around 20 hours ago. He has had subjective chills off and on for weeks, in addition to foul-smelling orange-discolored urine with urinary frequency for about 5 weeks. That is no different now. The pain in his right mid abdomen radiates around to his back at the same level. He has had prior appendectomy and another bowel surgery because of a small bowel obstruction, neither of those surgeries were in the past 2 months. He also has a history of COPD and has a chronic cough that is occasionally productive of phlegm. He denies any new dyspnea or chest discomfort. Prior similar symptoms: Yes - Past Medical History (1) Hepatitis C Status: Chronic (2) Hepatic cirrhosis Status: Chronic (3) Chronic obstructive lung disease Status: Chronic Past Medical History - Allergies and Home Meds Allergies/Adverse Reactions: Allergies ketorolac [From Toradol] Allergy (Verified 03/23/18 16:23) Hives morphine Adverse Reaction (Verified 03/23/18 16:23) Vomiting Primary Care Physician: Ric Coronado PA [Primary Care Provider] - Surgical History: appendectomy Smoking Status: Current every day smoker Review of Systems General: Denies: Chills, Fever, Sweats Eyes: Denies: Visual changes - bilaterally, Diplopia ENT: Denies: Bilateral ear pain, Rhinorrhea, Sore throat Cardiovascular: Denies: Chest pain, Palpitations, Heart racing Respiratory: Reports: Cough, Sputum. Denies: Dyspnea, Dyspnea on exertion, Orthopnea Gastrointestinal: Reports: Abdominal pain, Nausea, Vomiting. Denies: Diarrhea, Melena, Hematochezia Genitourinary: Reports: Frequency. Denies: Dysuria, Hematuria Musculoskeletal: Reports: Back pain, Swelling - bilat feet/ankles x 5wks. Denies: Neck pain, Extremity Pain Skin: Denies: Rash Neurological: Denies: Headache, Weakness, Numbness Psych: Denies: Suicidal thoughts, Suicidal ideations Endocrine: Denies: Polyuria, Polydipsia, Heat intolerance, Cold intolerance Allergy: Denies: Swelling of the mouth, Swelling of the tongue Physical Exam Vital Signs/Narrative: Vital Signs Temp Pulse Resp BP Pulse Ox 03/23/18 16:21 100.8 F H 84 16 131/74 H 98 Diagnostic/Tx/Re-eval Impressions Gallbladder Ultrasound 03/23/18 16:53 IMPRESSION: Stable enlarged, fatty liver. No focal hepatic lesions identified. Redemonstration of gallbladder sludge. Otherwise, normal gallbladder. Stable mildly dilated common bile duct, measuring 8 mm. Electronically Signed: Ranjit Zahida, at 17:52 EDT Tel , Service support , 03/23/18 16:53 Gallbladder [US] Stat Laboratory Results 03/23/18 03/23/18 03/23/18 16:35 16:35 17:40 WBC 9.0 RBC 4.35 L Hgb 13.6 Hct 39.6 L MCV 91.0 MCH 31.3 MCHC 34.3 RDW 14.6 RDW Differential 48.9 H Plt Count 208 MPV 12.2 H Immature Gran % (Auto) 0.200 Neut % (Auto) 69.4 Lymph % (Auto) 15.6 L [place] % (Auto) 12.6 H Eos % (Auto) 1.5 Baso % (Auto) 0.7 Absolute Neuts (auto) 6.2 Absolute Lymphs (auto) 1.40 Total Counted Not Reportable Sodium 137 Potassium 3.1 L Chloride 104 Carbon Dioxide 24.0 Anion Gap 9 BUN 4 L Creatinine 0.80 Estim Creat Clear Calc 110.97 Est GFR (MDRD) Af Amer 127 Est GFR (MDRD) Non-Af 105 BUN/Creatinine Ratio 5.0 L Glucose 101 Calcium 8.5 Total Bilirubin 4.60 H AST 40 H ALT 24 Alkaline Phosphatase 163 H Total Protein 7.4 Albumin 3.1 L Globulin 4.3 H Albumin/Globulin Ratio 0.7 L Lipase 279 Urine Color Deanna Urine Clarity Clear Urine pH 7.0 Ur Specific [place] 1.015 Urine Protein 30 H Urine Glucose (UA) Normal Urine Ketones 15 H Urine Occult Blood 10 H Urine Nitrite Positive H Urine Bilirubin 6 H Urine Urobilinogen 12 H Ur Leukocyte Esterase 25 H Urine RBC 0-5 SEEN Urine WBC 10-25 SEEN Ur Squamous Epith Cells 5-10 SEEN Urine Bacteria 1+ Urine Mucus 1+ - Medical Decision Making Repeat ultrasound shows a negative sonographic Elizondo's, distended with sludge but otherwise unremarkable gallbladder ultrasound. His labs show significant bump in his total bilirubin at 4.7. His other liver enzymes are for the most part okay or better than 5 weeks ago. He has no leukocytosis. His urinalysis shows bilirubin, nitrite positive which could be a false positive because of bilirubin, some leukocyte esterase, and significant pyuria. He had a CT abdomen/pelvis last month that did not show anything acute. Given his fever, I think it is reasonable to treat him empirically for possible infection, culture is sent and pending. His pain was treated with fentanyl and later Dilaudid, and his pain with Zofran. This pain has been present for 5 weeks constant. There are no signs of acute cholecystitis here, and the ultrasound showed no hyd ronephrosis in the kidney so he does not have pyelo. I was able to discuss with Dr. Montalvo, pharmacist in charge owner transportation design engineer for his doctor at [facility], Dr. Braulio Nunez, who given the scenario does not think he needs to be admitted emergently given the liver function and history of hepatitis C on new medication Mavyret. Patient is not on other new medications, including ribavirin. He recommends close outpatient follow-up with Dr. Nunez, in addition to repeat liver enzymes before the end of the week. He will call the office to request this, it is not known at this time if he has a standing order for repeat labs. Patient is comfortable with this plan. ED Disposition - Plan for ED Patient: Disposition: Home or Assisted Living Chief Complaint: Abd Pain Diagnosis: Right sided abdominal pain, Hepatitis C, Hepatic cirrhosis, Hyperbilirubinemia Instructions: ED Abdominal Pain Unkn Cause Prescriptions: proMETHazine tablet [Phenergan] 25 mg PO Q6H PRN PRN #10 tab PRN Reason: Nausea Referrals: Ric Coronado PA [Primary Care Provider] - Dr. Braulio Nunez [Other] (Call for follow-up appointment this week, as well as repeat liver enzymes to be done this week if possible. Continue your hepatitis medication as previously prescribed.)
[2018-03-23] MEDS: fentaNYL 100 MCG/2 ML Ampul 75 MCG IV (17:01)
[2018-03-23] MEDS: Ondansetron 4 MG/2 ML Vial IV (17:01)
[2018-03-23] MEDS: 0.9% Normal Saline 1,000 ML 125 ML IV (17:02)
[2018-03-23 17:20] LABS: Absolute Neutrophil Count 6.2 X10^3/uL (2.0-7.7); Basophil# 0.06 X10^3/uL; Basophil% 0.7 % (0-1); Eosinophil# 0.13 X10^3/uL; Eosinophils% 1.5 % (0-5); Hematocrit 39.6 % (40-54); Hemoglobin 13.6 g/dl (13.0-16.5); Lymphocyte % 15.6 % (19-41); Mean Corp Hgb Conc 34.3 g/gl (32-36); Mean Corpuscular Hgb 31.3 pg (27.0-32.0); Mean Platelet Vol. 12.2 fl (6.2-12.0); Monocyte# 1.13 X10^3/uL; Monocyte% 12.6 % (0-10); Neutrophil # 6.21 X10^3/uL (2.7-7.7); Neutrophil % 69.4 % (47-70); Platelet Count 208 K/mm3 (150-450); RBC Distribution Width CV 14.6 % (11.6-14.6); RBC Distribution Width SD 48.9 fl (35.1-43.9); Red Blood Count 4.35 M/mm3 (4.6-6.2)
[2018-03-23 17:21] LABS: ALB/GLOB Ratio 0.7 RATIO (0.9-2.4); AST(SGOT) 40 U/L (15-37); Alanine Aminotransfer ALT/SGPT 24 U/L (16-61); Albumin, Serum 3.1 g/dL (3.2-5.0); Alkaline Phosphatase 163 U/L (45-117); Anion Gap 9 (5-15); BUN 4 mg/dL (7-18); Calcium,Total 8.5 mg/dL (8.5-10.1); Chloride 104 mmol/L (98-107); EST Glomerular Filtration Rate 105 mL/min (>60); Est Glom Filt Rate - Afr Amer 127 mL/min (>60); Estimated Creatinine Clearance 110.97 ml/min; Globulin 4.3 g/dL (2.2-4.2); Glucose 101 mg/dL (74-106); Lipase 279 U/L (73-393); POSITIVE COUNT NO; POSITIVE DIFFERENTIAL NO; POSITIVE MORPHOLOGY NO; Potassium 3.1 mmol/L (3.5-5.1); Protein, Total 7.4 g/dL (6.4-8.2); Sodium Level 137 mmol/L (136-145)
[2018-03-23 18:17] LABS: Color, Urine Amber (Yellow); Glucose, Dipstick Normal (Normal); Ketone-Dipstick 15 mg/dl (Negative); Leukocyte Esterase-Dipstick 25 /ul (Negative); Nitrite-Dipstick Positive (Negative); Occult Blood-Urine 10 /ul (Negative); Protein-Dipstick 30 mg/dl (Negative); Specific Gravity, Urine 1.015 (1.002-1.030); Urine Bilirubin Dipstick 6 mg/dL (Negative); Urine Clarity Clear (Clear); Urine Urobilinogen 12 mg/dl (Normal)
[2018-03-23 18:44] LABS: Red Blood Cells-Urine 0-5 SEEN /hpf (0-5); White Blood Cells 10-25 SEEN /hpf (0-5)
[2018-03-23 18:45] LABS: Bacteria 1+ /hpf (None Seen); Mucous, Urine 1+ /hpf (<or=2+); Squamous Epithelial Cells - UA 5-10 SEEN /hpf (0-5)
[2018-03-23 18:57] VITALS: BP 150/78; PULSE 68; RESP 18; O2SAT 97
[2018-03-23] MEDS: HYDROmorphone 1 MG/ML Syringe IV (20:21)
[2018-03-23] MEDS: Cephalexin 250 MG Capsule 500 MG PO (20:21)
[2018-03-23 20:34] VITALS: BP 166/88; PULSE 74; RESP 18; O2SAT 98
== END 2018-03-23 20:35 | disposition home or self-care (01) ==
PROVIDERS: Emergency Provider Emergency Medicine; Family Provider Physician Assistant; PCP Physician Assistant
DX: R10.9 Unspecified abdominal pain (principal); J44.9 Chronic obstructive pulmonary disease, unspecified; B19.20 Unspecified viral hepatitis C without hepatic coma; K74.60 Unspecified cirrhosis of liver; E80.6 Other disorders of bilirubin metabolism; F17.200 Nicotine dependence, unspecified, uncomplicated
CPT/HCPCS: 76705; 80053; 81001; 83690; 85025; 87086; 96361; 96374; 96375; 99284; J7030; A4216; J2405

== ENCOUNTER 2018-04-13 22:30 | Emergency (ER) | payer MEDICAID, SELFPAY ==
[2018-04-13 22:30] VITALS: BP 115/75; PULSE 80; RESP 19; TEMP 36.7; O2SAT 98; BMI 28.5
--- NOTE | 2018-04-13 23:06 | ED.VISSUMM ---
- ER Visit Summary Date of Service: 04/13/18 Chief Complaint: Abdominal pain History of Present Illness: The patient is a 62 M presenting with abdominal pain. Patient states this has been ongoing for several months. He is currently on the medication mavyret for hep C. He states this has been making him tired. He has had some itching in his feet. He denies any rash, difficulty breathing, difficulty swallowing. He has a history of hep C, cirrhosis. He states he is scheduled for surgery next Friday at [facility]. He does not know what type of surgery. Physical Examination: Vitals are stable. Patient is afebrile. Alert no acute distress. HEENT exam is unremarkable. Neck is supple. Lungs are clear and equal bilaterally. Heart is regular rate and rhythm. Abdomen is soft right upper quadrant tenderness, no rebound or guarding Extremities are unremarkable. Skin is warm and dry. Remainder of exam is unremarkable. Emergency Department Course and Treatment: Patient is given Dilaudid, Zofran IV. CBC shows hemoglobin 12.7. Chemistries show potassium 2.8, glucose 145. Total bili 6.4, direct bili 4.8, alk [id number], AST 57, lipase 314. Liver enzymes are increased from previous. He was given potassium oral replacement. CT abdomen pelvis with IV and oral contrast was obtained and shows there is thickening of the ugarte of the colon suggesting colitis. Findings were discussed with on-call [facility] covering for Dr. Nunez, Dr Raymond. Patient does not have a fever or white count. He feels he can be safely discharged to follow-up with Dr. Nunez his horticulture supervisor as an outpatient. Patient is advised signs and symptoms for which to return to ED. He is advised return to ED for worsening complaints. Disposition: Discharge home Impression: Abdominal pain, cirrhosis, hep C, hypokalemia This note was generated with [employer] dictation software. It may contain incorrect words, spelling, and punctuation that were not noted in review of the chart prior to signing ED Disposition - Plan for ED Patient: Chief Complaint: Abd Pain Instructions: ED Abdominal Pain Unkn Cause Referrals: Ric Coronado PA [Primary Care Provider] -
[2018-04-13] MEDS: HYDROmorphone 0.5 MG/0.5 ML SYRINGE IV (23:07)
[2018-04-13] MEDS: Ondansetron 4 MG/2 ML Vial IV (23:07)
[2018-04-13 23:24] LABS: AST(SGOT) 57 U/L (15-37); Alanine Aminotransfer ALT/SGPT 27 U/L (16-61); Albumin, Serum 2.9 g/dL (3.2-5.0); Alkaline Phosphatase 186 U/L (45-117); Anion Gap 7 (5-15); BUN 4 mg/dL (7-18); BUN/Creat Ratio 4.5 RATIO (10-20); Bilirubin, Direct 4.82 mg/dL (0.00-0.30); Calcium,Total 8.5 mg/dL (8.5-10.1); Chloride 101 mmol/L (98-107); EST Glomerular Filtration Rate 92 mL/min (>60); Est Glom Filt Rate - Afr Amer 111 mL/min (>60); Estimated Creatinine Clearance 98.64 ml/min; Globulin 4.4 g/dL (2.2-4.2); Glucose 145 mg/dL (74-106); Lipase 314 U/L (73-393); Potassium 2.8 mmol/L (3.5-5.1); Protein, Total 7.3 g/dL (6.4-8.2); Sodium Level 137 mmol/L (136-145)
[2018-04-13 23:34] LABS: Hematocrit 37.1 % (40-54); Hemoglobin 12.7 g/dl (13.0-16.5); Mean Corp Hgb Conc 34.2 g/gl (32-36); Mean Corpuscular Volume 90.5 fL (80-94); Mean Platelet Vol. 12.4 fl (6.2-12.0); Platelet Count 224 K/mm3 (150-450); RBC Distribution Width CV 16.2 % (11.6-14.6); RBC Distribution Width SD 53.6 fl (35.1-43.9); White Blood Count 10.9 K/mm3 (4.4-11.0)
[2018-04-13 23:37] LABS: POSITIVE COUNT NO; POSITIVE MORPHOLOGY NO
[2018-04-13 23:42] LABS: Basophil% 0.7 % (0-1); Differential Indicated SCAN CRITERIA MET; Eosinophils% 1.7 % (0-5); Lymphocyte % 10.4 % (19-41); Monocyte% 13.9 % (0-10); Neutrophil % 73.1 % (47-70); POSITIVE DIFFERENTIAL YES
[2018-04-13 23:43] LABS: Absolute Lymphocyte Count 1.15 X10^3/ul (0.83-4.51); Absolute Neutrophil Count 8.1 X10^3/uL (2.0-7.7); Basophil# 0.08 X10^3/uL; Eosinophil# 0.19 X10^3/uL; Lymphocyte # 1.15 X10^3/ul (4.0); Monocyte# 1.54 X10^3/uL; Neutrophil # 8.07 X10^3/uL (2.7-7.7)
[2018-04-14 00:07] LABS: Differential Comment SCANNED
--- NOTE | 2018-04-14 00:30 | CT_ITS ---
STUDY: CT ABDOMEN AND PELVIS WITH CONTRAST REASON FOR EXAM: Male, 62 years old. Mid abdominal pain RADIATION DOSAGE (If Supplied By Facility): CTDIvol = ( 20.89 ) mGy, DLP = ( 1201.62 ) mGycm TECHNIQUE: Transaxial images were obtained from the dome of the diaphragm to the symphysis pubis without oral contrast. 100ml ml of Isovue 300 contrast was administered. Sagittal and coronal images were reconstructed. Individualized dose optimization techniques were used for this CT. COMPARISON: None. FINDINGS: The visualized lung bases are unremarkable. The visualized portions of the heart are within normal limits. There is a diffuse contour abnormality of the liver consistent with cirrhotic changes. Normal gallbladder and extrahepatic biliary system. Normal spleen. Normal pancreas. Normal bilateral adrenal glands. Normal right kidney. Normal left kidney. Normal visualized stomach. Normal small intestine. There is thickening of the ugarte of the colon suggesting colitis. The appendix is visualized and appears normal. Normal abdominal aorta. Normal inferior vena cava. Normal retroperitoneum. Normal urinary bladder. There is an anterior abdominal wall hernia superior to the umbilicus containing fat and dilated mesenteric vein. There is a cystic lesion in the saphenous soft tissues in the back at T12-L1 level measures 4 cm consistent with epidermoid cyst. Normal osseous structures. CT/Abdomen/Pelvis WITH Contrast IMPRESSION: There is thickening of the ugarte of the colon suggesting colitis. Electronically Signed: Rufino Sims MD at 1:33 EDT Tel , Service support ,
[2018-04-14] MEDS: HYDROmorphone 0.5 MG/0.5 ML SYRINGE IV (01:16)
--- NOTE | 2018-04-14 01:57 | ED.DEP ---
ED Disposition - Plan for ED Patient: Chief Complaint: Abd Pain Instructions: ED Abdominal Pain Unkn Cause Referrals: Ric Coronado PA [Primary Care Provider] - Mt Flroes MD [STAFF PHYSICIAN] -
[2018-04-14 02:17] VITALS: BP 138/75; PULSE 76; O2SAT 98
--- NOTE | 2018-04-14 02:39 | ED.DEP ---
ED Disposition - Plan for ED Patient: Chief Complaint: Abd Pain Instructions: ED Abdominal Pain Unkn Cause Referrals: Ric Coronado PA [Primary Care Provider] -
[2018-04-14 03:12] VITALS: BP 131/87; PULSE 65; RESP 17; O2SAT 96
--- NOTE | 2018-04-14 03:14 | ED.RN ---
PT GIVEN WRITTEN AND VERBAL DISCHARGE INSTRUCTIONS. PT INSTRUCTED NOT TO DRIVE AFTER HAVING NARCOTIC MEDICATION FOR 4-6 HOURS. PT VERBALIZES UNDERSTANDING AND DENIES ANY FURTHER QUESTIONS. PT IV D/C AND COVERED WITH 2X2 GAUZE AND PAPER TAPE. THIS RN HAD CONSTRUCTION OR LEAK GANG LABORER CALL FOR CAB. PT TO WAITING ROOM FOR CAB ARRIVAL AND TRANSPORT HOME. PT DRESSES SELF AND AMBULATES TO WAITING ROOM WITHOUT DIFFICULTY.
== END 2018-04-14 03:18 | disposition home or self-care (01) ==
LOC: ED 23:01
PROVIDERS: Emergency Provider Emergency Medicine; Family Provider Physician Assistant; PCP Physician Assistant
DX: R10.9 Unspecified abdominal pain (principal); K74.60 Unspecified cirrhosis of liver; B19.20 Unspecified viral hepatitis C without hepatic coma; E87.6 Hypokalemia; J44.9 Chronic obstructive pulmonary disease, unspecified; Z72.0 Tobacco use
CPT/HCPCS: 74177; 80048; 80076; 83690; 85025; 96374; 96375; 99284; J7030; J7040; Q9967; A4216; J2405

== ENCOUNTER 2018-04-27 18:32 | Emergency (ER) | payer MEDICAID, SELFPAY ==
[2018-04-27 18:32] VITALS: BP 129/69; PULSE 73; RESP 18; TEMP 36.6; O2SAT 100; BMI 28.8
--- NOTE | 2018-04-27 19:48 | CT_ITS ---
STUDY: CT ABDOMEN AND PELVIS WITHOUT CONTRAST REASON FOR EXAM: Male, 62 years old. Lower abdominal pain and history of hernias. RADIATION DOSAGE (If Supplied By Facility): CTDIvol = ( 14.41 ) mGy, DLP = ( 909.91 ) mGycm TECHNIQUE: Transaxial images were obtained from the dome of the diaphragm to the symphysis pubis without oral contrast, and without intravenous contrast. Sagittal and coronal images were reconstructed. Individualized dose optimization techniques were used for this CT. COMPARISON: April 14, 2018 FINDINGS: The visualized lung bases are unremarkable. The visualized portions of the heart are within normal limits. Normal liver. Distended gallbladder. Small amount of ascites throughout the abdomen. No radiodense gallstones. Normal spleen. Normal pancreas. Normal bilateral adrenal glands. Normal right kidney. Normal left kidney. Normal visualized stomach. Small bowel is somewhat distended with multiple air-fluid levels. Sigmoid diverticulosis. Normal colon. There is non-visualization of the appendix. There is diffuse atherosclerotic calcification of the abdominal aorta, without a demonstrated aneurysm. Normal inferior vena cava. Normal retroperitoneum. Normal urinary bladder. Bilateral fluid-filled fat-containing inguinal hernias. Fat-containing umbilical hernia. Normal osseous structures. CT/Abdomen/Pelvis without Cont IMPRESSION: Distended gallbladder and ascites. Recommend follow-up gallbladder ultrasound. Ileus. Electronically Signed: Saulo Mantilla MD at 20:54 EST , Service support ,
[2018-04-27] MEDS: HYDROmorphone 1 MG/ML Syringe 0.5 MG IV (20:16)
[2018-04-27 20:17] LABS: Absolute Lymphocyte Count 1.77 X10^3/ul (0.83-4.51); Basophil% 1.1 % (0-1); Eosinophils% 3.2 % (0-5); Hematocrit 35.3 % (40-54); Hemoglobin 12.4 g/dl (13.0-16.5); Lymphocyte # 1.77 X10^3/ul (4.0); Lymphocyte % 18.8 % (19-41); Mean Corp Hgb Conc 35.1 g/gl (32-36); Mean Corpuscular Hgb 31.6 pg (27.0-32.0); Mean Corpuscular Volume 89.8 fL (80-94); Mean Platelet Vol. 11.1 fl (6.2-12.0); Monocyte# 1.25 X10^3/uL; Monocyte% 13.3 % (0-10); Neutrophil # 5.97 X10^3/uL (2.7-7.7); Neutrophil % 63.3 % (47-70); Platelet Count 259 K/mm3 (150-450); RBC Distribution Width CV 16.8 % (11.6-14.6); RBC Distribution Width SD 55.3 fl (35.1-43.9); Red Blood Count 3.93 M/mm3 (4.6-6.2); White Blood Count 9.4 K/mm3 (4.4-11.0)
[2018-04-27] MEDS: 0.9% Normal Saline 1,000 ML 150 ML IV (20:17)
[2018-04-27] MEDS: Ondansetron 4 MG/2 ML Vial IV (20:17)
[2018-04-27 20:18] LABS: POSITIVE COUNT NO; POSITIVE DIFFERENTIAL NO; POSITIVE MORPHOLOGY NO
[2018-04-27 20:26] LABS: AST(SGOT) 52 U/L (15-37); Alanine Aminotransfer ALT/SGPT 26 U/L (16-61); Albumin, Serum 2.6 g/dL (3.2-5.0); Alkaline Phosphatase 177 U/L (45-117); Anion Gap 7 (5-15); BUN 5 mg/dL (7-18); Bilirubin, Direct 3.54 mg/dL (0.00-0.30); Calcium,Total 8.3 mg/dL (8.5-10.1); Chloride 103 mmol/L (98-107); Creatinine, Serum 0.83 mg/dL (0.70-1.30); EST Glomerular Filtration Rate 100 mL/min (>60); Est Glom Filt Rate - Afr Amer 121 mL/min (>60); Estimated Creatinine Clearance 106.96 ml/min; Globulin 4.5 g/dL (2.2-4.2); Glucose 84 mg/dL (74-106); Lipase 250 U/L (73-393); Protein, Total 7.1 g/dL (6.4-8.2); Sodium Level 138 mmol/L (136-145)
[2018-04-27 21:41] VITALS: BP 149/80; PULSE 67; RESP 18; O2SAT 98
--- NOTE | 2018-04-27 22:06 | US_ITS ---
STUDY: ABDOMINAL ULTRASOUND - RIGHT UPPER QUADRANT REASON FOR VISIT: Male, 62 years old. Right upper quadrant pain TECHNIQUE: Ultrasound evaluation of the right upper quadrant was performed with real-time and static garcia-scale imaging. TECHNICAL QUALITY: Adequate. COMPARISON: CT abdomen and pelvis April 27, 2018 and abdominal ultrasound March 23, 2018 FINDINGS: Liver: The liver measures 22 cm. There is normal echogenicity of the liver. The bile ducts are within normal limits. There is hepatic color flow. The direction of portal flow is hepatopetal. There is no demonstrated mass lesion. Ascites. Gallbladder: Normal distended gallbladder. The gallbladder wall measures 4 mm. There is a negative sonographic Elizondo's sign. There is no pericholecystic fluid. There is biliary sludge dependent within the gallbladder. Common Bile Duct (C.B.D.): The common bile duct measures 10 mm. This demonstrates interval progression. Pancreas: Pancreatic tail not well visualized. There is normal echogenicity of the pancreas. There is no demonstrated pancreatic mass or cyst. Right Kidney: Normal size of the right kidney. The right kidney measures 13 cm. Normal renal cortex. The right cortex measures 1.1 cm. There is no demonstrated renal mass or cyst. There is no right hydronephrosis. US/Gallbladder IMPRESSION: Gallbladder sludge and possible cholecystitis and common bile duct obstruction. Follow-up MRCP and/or HIDA scan may be helpful. Hepatomegaly and ascites. Hepatocellular disease most likely hepatic steatosis. Electronically Signed: Saulo Mantilla MD at 23:16 EST , Service support ,
[2018-04-27] MEDS: HYDROmorphone 0.5 MG/0.5 ML SYRINGE IV (22:36)
--- NOTE | 2018-04-27 23:52 | ED.VISSUMM ---
- ER Visit Summary Date of Service: 04/27/18 Chief Complaint: Abdominal pain History of Present Illness: The patient is a 62 M with a history of hepatitis C and cirrhosis. He has a history of chronic abdominal pain. He noticed 2 new painful lumps to his lower abdomen, one noticed 2 weeks ago and was noticed 3 weeks ago. He denies fever or chills. Physical Examination: Vital signs unremarkable. Patient's lying in bed no acute distress. Heart is regular rate and rhythm. Lung sounds are clear. Abdomen is soft with bilateral inguinal hernias, left greater than right. He also has a small hernia noted along the prior abdominal surgical scar. He has mild right upper quadrant tenderness with no guarding or rebound. Test Results: CBC was normal white count with hemoglobin 12.4. Chemistry studies significant for potassium 3.0. LFTs show a total bili of 4.9 and a direct bili of 3.54 with an alk phos of 177. ALT is normal and AST is 52. These values are improved when compared to recent labs. Lipase is normal. CT flank reveals an ileus pattern. There is a distended gallbladder and ascites. Ultrasound of the gallbladder is recommended. I did review his recent workup and at that time his gallbladder was noted to be normal. Although the CT scan does not comment on inguinal hernias, I did review this area and it does appear consistent with inguinal hernias. Right upper quadrant ultrasound was obtained that shows gallbladder sludge and possibly cholecystitis with common bile duct obstruction. Follow-up MRCP and/or HIDA scan may be helpful. Emergency Department Course and Treatment: Patient was given a dose of Dilaudid and Zofran here. Test results were discussed with him. He has been told in the past that he needed his gallbladder out, but because of his cirrhosis he was not a surgical candidate. Patient has been seen by Dr. Garay in the past. I spoke with her and she will see him in the office for follow-up for possible MRCP. At this time the patient clinically does not have acute cholecystitis and his labs are improving when compared to prior. Treatment Plan: [] Disposition: Discharge Impression: 1. Chronic abdominal pain with cirrhosis 2. Bilateral inguinal hernias This note was generated with [employer] software. It may contain incorrect words, spelling, and punctuation that were not noted in review of the chart prior to signing ED Disposition - Plan for ED Patient: Disposition: Home or Assisted Living Chief Complaint: Abd Pain Instructions: ED Hernia Inguinal Referrals: Zayda Garay MD [STAFF PHYSICIAN] - As soon as possible Additional Instructions: F-U with Dr Garay for possible MRCP of gallbladder area as discussed.
[2018-04-28] MEDS: oxyCODONE 5 MG Tablet PO (00:44)
[2018-04-28 00:49] VITALS: BP 132/89; PULSE 79; RESP 14; O2SAT 98
== END 2018-04-28 00:50 | disposition home or self-care (01) ==
PROVIDERS: Emergency Provider Emergency Medicine; Family Provider Physician Assistant; PCP Physician Assistant
DX: G89.29 Other chronic pain (principal); R10.9 Unspecified abdominal pain; K74.60 Unspecified cirrhosis of liver; K40.20 Bilateral inguinal hernia, without obstruction or gangrene, not specified as recurrent; I10 Essential (primary) hypertension; E78.00 Pure hypercholesterolemia, unspecified; J44.9 Chronic obstructive pulmonary disease, unspecified; F32.9 Major depressive disorder, single episode, unspecified; F41.9 Anxiety disorder, unspecified; Z72.0 Tobacco use
CPT/HCPCS: 74176; 76705; 80048; 80076; 83690; 85025; 96361; 96374; 96375; 99283; J7030; A4216; J2405

== ENCOUNTER 2018-05-02 10:18 | Emergency (ER) | payer MEDICAID, SELFPAY ==
[2018-05-02 10:18] VITALS: BP 145/89; PULSE 70; RESP 14; TEMP 36.5; O2SAT 100; BMI 29.1
[2018-05-02] MEDS: fentaNYL 100 MCG/2 ML Ampul 50 MCG IV ×2 (10:57→13:36)
[2018-05-02 11:02] LABS: Absolute Lymphocyte Count 1.65 X10^3/ul (0.83-4.51); Absolute Neutrophil Count 6.9 X10^3/uL (2.0-7.7); Basophil# 0.08 X10^3/uL; Basophil% 0.8 % (0-1); Eosinophil# 0.25 X10^3/uL; Eosinophils% 2.4 % (0-5); Hematocrit 36.4 % (40-54); Hemoglobin 12.6 g/dl (13.0-16.5); Lymphocyte # 1.65 X10^3/ul (4.0); Lymphocyte % 16.1 % (19-41); Mean Corp Hgb Conc 34.6 g/gl (32-36); Mean Corpuscular Hgb 31.3 pg (27.0-32.0); Mean Corpuscular Volume 90.3 fL (80-94); Mean Platelet Vol. 11.1 fl (6.2-12.0); Monocyte% 13.7 % (0-10); Neutrophil # 6.85 X10^3/uL (2.7-7.7); Neutrophil % 66.8 % (47-70); Platelet Count 278 K/mm3 (150-450); RBC Distribution Width CV 16.9 % (11.6-14.6); RBC Distribution Width SD 55.5 fl (35.1-43.9); Red Blood Count 4.03 M/mm3 (4.6-6.2); White Blood Count 10.3 K/mm3 (4.4-11.0)
[2018-05-02 11:04] LABS: POSITIVE COUNT NO; POSITIVE DIFFERENTIAL NO; POSITIVE MORPHOLOGY NO
--- NOTE | 2018-05-02 11:08 | ED.VIS.GEN ---
History of Present Illness Chief Complaint: Abd Pain Informant: Patient, PCP Narrative: Patient with active chronic hepatitis C virus infection along with significant steatosis presenting with chronic abdominal pain that is diffuse, 2 relatively new painful but reducible bilateral inguinal hernias, and recently diagnosed common bile ductal obstruction with hyperbilirubinemia and cholecystitis, now having ascites and edema seen on outpatient visit 2 days ago, PCP sent him in to get admitted/transferred to [facility]. The patient has been extremely fatigued and weak over the last couple days and has remained in bed, his PCP was not able to get a hold of him until just recently. He has no way to get to [place], which is where he has established care with hepatology and other specialties, and he needs to be evaluated for possible cholecystectomy and ERCP. He was recommended to come to the nearest emergency department, where he came by EMS today. - Past Medical History (1) Chronic obstructive lung disease Status: Chronic (2) Hepatic cirrhosis Status: Chronic (3) Hepatitis C Status: Chronic Past Medical History - Allergies and Home Meds Allergies/Adverse Reactions: Allergies ketorolac [From Toradol] Allergy (Verified 05/02/18 10:21) Hives morphine Adverse Reaction (Verified 05/02/18 10:21) Vomiting Primary Care Physician: Ric Coronado PA [Primary Care Provider] - Surgical History: appendectomy Lives: Alone Smoking Status: Current every day smoker Review of Systems General: Reports: Malaise. Denies: Chills, Fever, Sweats Eyes: Denies: Visual changes - bilaterally, Diplopia ENT: Denies: Rhinorrhea, Sore throat Cardiovascular: Denies: Chest pain, Palpitations Respiratory: Denies: Dyspnea, Cough, Dyspnea on exertion Gastrointestinal: Reports: Abdominal pain, Constipation - occasionally, - - +having BMs, - - abd distension. Denies: Nausea, Vomiting, Diarrhea, Melena, Hematochezia Genitourinary: Denies: Dysuria, Hematuria, Frequency Musculoskeletal: Reports: Swelling. Denies: Neck pain, Extremity Pain Skin: Denies: Rash Neurological: Denies: Headache, Weakness, Numbness Endocrine: Denies: Heat intolerance, Cold intolerance Allergy: Denies: Swelling of the mouth, Swelling of the tongue Physical Exam Vital Signs/Narrative: Vital Signs Temp Pulse Resp BP Pulse Ox 05/02/18 10:18 97.7 F L 70 14 145/89 H 100 Inital Vital Signs reviewed: Yes General: Well nourished, Well developed Head: Normocephalic, Atraumatic Eyes: Perrl, EOMI ENT: Moist mucous membranes, No rhinorrhea Neck: Supple, Nontender Cardiovascular: Regular rate, Regular rhythm, No murmurs Respiratory: No distress, CTA bilaterally, Chest nontender Abdomen: Soft, Tender - diffusely, worse in RUQ, Hypoactive bowel sounds, Inguinal hernia - bilat, tender, Hernia reducible, Elizondo's sign. Negative for: Nondistended - +distension, Guarding, Rebound tenderness Back: Nontender, Normal Inspection. Negative for: CVA tenderness Extremities: Nontender, Edema - 2-3+ BLE symmetric Skin: Normal color, No rash Neurological: Alert, Oriented x3, Cranial nerves II-XII grossly intact, Normal Strength, Normal Sensation Psychological: Normal affect Diagnostic/Tx/Re-eval Laboratory Tests 05/02/18 05/02/18 05/02/18 Range/Units 10:45 10:45 10:45 WBC 10.3 (4.4-11.0) K/mm3 RBC 4.03 L (4.6-6.2) M/mm3 Hgb 12.6 L (13.0-16.5) g/dl Hct 36.4 L (40-54) % MCV 90.3 (80-94) fL MCH 31.3 (27.0-32.0) pg MCHC 34.6 (32-36) g/gl RDW 16.9 H (11.6-14.6) % RDW Differential 55.5 H (35.1-43.9) fl Plt Count 278 (150-450) K/mm3 MPV 11.1 (6.2-12.0) fl Immature Gran % (Auto) 0.200 (0.0-0.9) % Neut % (Auto) 66.8 (47-70) % Lymph % (Auto) 16.1 L (19-41) % [place] % (Auto) 13.7 H (0-10) % Eos % (Auto) 2.4 (0-5) % Baso % (Auto) 0.8 (0-1) % Absolute Neuts (auto) 6.9 (2.0-7.7) X10^3/uL Absolute Lymphs (auto) 1.65 (0.83-4.51) X10^3/ul Total Counted Not Reportable Sodium 138 (136-145) mmol/L Potassium 2.7 L* (3.5-5.1) mmol/L Chloride 103 (98-107) mmol/L Carbon Dioxide 28.0 (21.0-32.0) mmol/L Anion Gap 7 (5-15) BUN 4 L (7-18) mg/dL Creatinine 0.81 (0.70-1.30) mg/dL Estim Creat Clear Calc 109.60 ml/min Est GFR (MDRD) Af Amer 125 (>60) mL/min Est GFR (MDRD) Non-Af 103 (>60) mL/min BUN/Creatinine Ratio 5.0 L (10-20) RATIO Glucose 108 H (74-106) mg/dL Calcium 8.1 L (8.5-10.1) mg/dL Total Bilirubin 5.40 H (0.20-1.00) mg/dL Direct Bilirubin 3.55 H (0.00-0.30) mg/dL AST 46 H (15-37) U/L ALT 27 (16-61) U/L Alkaline Phosphatase 167 H (45-117) U/L Total Protein 6.9 (6.4-8.2) g/dL Albumin 2.6 L (3.2-5.0) g/dL Globulin 4.3 H (2.2-4.2) g/dL Albumin/Globulin Ratio 0.6 L (0.9-2.4) RATIO Lipase 335 (73-393) U/L - Medical Decision Making Labs show slightly more elevated total bilirubin than 5 days ago, direct bilirubin is similar. Alkaline phosphatase is similar in the 160s. Potassium is low at 2.7, I replaced some, his blood counts are otherwise normal. Zosyn was given empirically for possible cholecystitis, and I discussed with [facility]. I was able to get him transferred by ground and accepted by Dr. Bae. His pain was controlled by a couple separate doses of fentanyl. He is clinically and hemodynamically stable. ED Disposition - Plan for ED Patient: Disposition: [facility] - Main Chief Complaint: Abd Pain Diagnosis: Hepatitis C, Hepatic cirrhosis, Choledocholithiasis with acute cholecystitis
[2018-05-02 11:27] LABS: Bilirubin, Direct 3.55 mg/dL (0.00-0.30)
[2018-05-02 11:30] LABS: ALB/GLOB Ratio 0.6 RATIO (0.9-2.4); AST(SGOT) 46 U/L (15-37); Alanine Aminotransfer ALT/SGPT 27 U/L (16-61); Albumin, Serum 2.6 g/dL (3.2-5.0); Alkaline Phosphatase 167 U/L (45-117); Anion Gap 7 (5-15); BUN 4 mg/dL (7-18); Calcium,Total 8.1 mg/dL (8.5-10.1); Chloride 103 mmol/L (98-107); Creatinine, Serum 0.81 mg/dL (0.70-1.30); EST Glomerular Filtration Rate 103 mL/min (>60); Est Glom Filt Rate - Afr Amer 125 mL/min (>60); Globulin 4.3 g/dL (2.2-4.2); Glucose 108 mg/dL (74-106); Lipase 335 U/L (73-393); Potassium 2.7 mmol/L (3.5-5.1); Protein, Total 6.9 g/dL (6.4-8.2); Sodium Level 138 mmol/L (136-145)
[2018-05-02 12:11] VITALS: BP 134/74; PULSE 63; RESP 16; O2SAT 98
--- NOTE | 2018-05-02 13:25 | ED.RN ---
H50 BED [phone] VALDIVIA [facility] MAIN
--- NOTE | 2018-05-02 13:49 | ED.RN ---
[facility] CALLED CALLED
[2018-05-02 14:17] VITALS: BP 129/73; PULSE 63; RESP 17; O2SAT 98
--- NOTE | 2018-05-02 14:57 | ED.RN ---
REPORT GIVEN TO YOU ROBLES
== END 2018-05-02 14:30 | disposition short-term general hospital (02) ==
PROVIDERS: Emergency Provider Emergency Medicine; Family Provider Physician Assistant; PCP Physician Assistant
DX: B18.2 Chronic viral hepatitis C (principal); K74.60 Unspecified cirrhosis of liver; K80.42 Calculus of bile duct with acute cholecystitis without obstruction; K40.90 Unilateral inguinal hernia, without obstruction or gangrene, not specified as recurrent; F17.200 Nicotine dependence, unspecified, uncomplicated; J44.9 Chronic obstructive pulmonary disease, unspecified
CPT/HCPCS: 80053; 82248; 83690; 85025; 96365; 99285; J7030; A4216

== ENCOUNTER 2018-05-15 07:37 | Emergency (ER) | payer MEDICAID, SELFPAY ==
[2018-05-15 07:39] VITALS: BP 164/89; PULSE 79; RESP 18; TEMP 36.6; O2SAT 99; BMI 29.9
[2018-05-15 08:05] VITALS: RESP 20
--- NOTE | 2018-05-15 08:11 | ED.DCSUM_ITS ---
- ER Visit Summary Date of Service: 05/15/18 Chief Complaint: [] Complaining of right inguinal hernia pain History of Present Illness: The patient is a 62 M [] stated he has had inguinal hernia pain for several weeks now. Over the last 3 weeks is really been hurting him. When he stands up and walks and causes pain. He never tries to reduce as he stated that he was never taught how to do this. Has had multiple visits and CAT scans recently. He does have chronic cirrhosis of his liver and has had evaluations including a recent admission to the [facility]. He stated that his gallbladder disease that is chronic is nonsurgical. However he stated he is supposed to see Dr. Tenorio for his hernias but has not made an appointment Physical Examination: [] Vital signs reviewed General: Well-nourished well-developed Head: Normocephalic atraumatic Eyes: Pupils equal round and reactive to light extraocular movements intact ENT: TMs clear no hemotympanum no trauma Neck: Nontender full range of motion Cardiovascular: Regular rate rhythm no murmurs normal S1-S2 Respiratory: No distress clear to auscultation bilaterally chest nontender Abdomen: Soft reducible inguinal hernia in his right groin fold. I do not feel hernia on the left side nondistended normal bowel sounds no masses Back: Nontender no CVA tenderness Extremities: Nontender active range of motion ?4 extremities no trauma Skin: Normal color no trauma Neuro alert oriented cranial nerves II through XII intact normal strength sensation reflexes Test Results: [] Emergency Department Course and Treatment: [] With gentle massage I was able to alleviate his pain by pushing his hernia back in. He was switched to tight fitting underwear and was taught how to massage the back and when it comes out. I do not feel strangulated or incarcerated. There is no erythema. He is nontoxic. Given 1 oxycodone. Will follow up with surgery Treatment Plan: [] Disposition: [] Impression: [] Reducible right inguinal hernia This note was generated with [employer] dictation software. It may contain incorrect words, spelling, and punctuation that were not noted in review of the chart prior to signing ED Disposition - Plan for ED Patient: Chief Complaint: Male Pain/Injury Referrals: Ric Coronado PA [Primary Care Provider] -
--- NOTE | 2018-05-15 08:11 | ED.DEP ---
ED Disposition - Plan for ED Patient: Disposition: Home or Assisted Living Chief Complaint: Male Pain/Injury Instructions: ED Hernia Inguinal Referrals: Ric Coronado PA [Primary Care Provider] - Durga Caldwell MD [STAFF PHYSICIAN] -
[2018-05-15] MEDS: oxyCODONE 5 MG Tablet PO (08:19)
== END 2018-05-15 08:20 | disposition home or self-care (01) ==
LOC: ED 08:15
PROVIDERS: Emergency Provider Emergency Medicine; Family Provider Physician Assistant; PCP Physician Assistant
DX: K40.90 Unilateral inguinal hernia, without obstruction or gangrene, not specified as recurrent (principal); K74.60 Unspecified cirrhosis of liver
CPT/HCPCS: 99283

== ENCOUNTER 2018-05-22 12:05 | Inpatient (IN) | payer MEDICAID, SELFPAY ==
[2018-05-22 12:05] VITALS: BP 133/77; PULSE 101; RESP 17; TEMP 36.8; O2SAT 98; BMI 26.4
--- NOTE | 2018-05-22 12:37 | RAD_ITS ---
STUDY: X-RAY - PELVIS REASON FOR EXAM: Male, 62 years old. Left femoral pain following a fall. TECHNIQUE: One view of the pelvis was obtained. COMPARISON: None. FINDINGS: There is a non-specific bowel gas pattern. Normal visualized soft tissue structures. Normal bilateral iliac wings, sacroiliac joints and visualized sacrum. Normal visualized bilateral superior and inferior pubic rami. Normal pubic symphysis. Normal ischial tuberosities. Normal visualized right femoral head. Normal right acetabulum. Normal right hip joint. Normal visualized left femoral head. Normal left acetabulum. Normal left hip joint. RAD/Pelvis 1 or 2 Views IMPRESSION: Normal x-ray examination of the pelvis. Electronically Signed: Alan Silveira MD at 13:47 EST Tel [phone], Service support ,
--- NOTE | 2018-05-22 12:39 | ED.VISSUMM ---
- ER Visit Summary Date of Service: 05/22/18 Chief Complaint: Follow-up mild left hip and thigh pain. History of Present Illness: The patient is a 62 M your liver cirrhosis. Patient states that there is some in his door he got up tripped and fell awkwardly on the floor injuring his left hip and femur. Unable to bear weight. No prior femur or hip fracture. Denies any LOC. He is on no blood thinners. Denies any other complaints. Physical Examination: Middle-aged male. Vital signs are stable. Afebrile. HEENT exam atraumatic. Patient is blind in his right eye and his decreased vision in his left. No facial trauma. No scalp trauma or tenderness. No hematoma. C-spine nontender. Trachea midline. Lungs clear to auscultation bilaterally. Heart regular rhythm rate about 100. No murmur. Chest wall nontender. Abdomen soft nondistended normal bowel sounds without peritoneal signs. He does have ventral hernias that easily reduce. There is no signs of obstruction. Abdomen soft. Patient's left hip and thigh are tender to palpation without gross bony deformity. He has limited range of motion due to pain. His knee and left lower leg ankle and foot are nontender. Right lower extremity is nontender. Both upper extremities are nontender. No deformities. Back is nontender. Is a lipoma along the midportion of his right back. Neurologically is awake and alert with no focal motor deficits. Test Results: X-rays of his left hip and pelvis shows on 1-2 views a left nondisplaced intertrochanteric hip fracture. left femur x-ray nondisplaced left intertrochanteric hip fracture. Dr. Timmy Bryan orthopedics wanted a CT scan done which again showed the same left hip fracture. Emergency Department Course and Treatment: She was started on IV Dilaudid and Zofran. Treatment Plan: Admitted to Dr. Gilbert Barajas to the hospitalist. Pending surgery by Dr. Timmy Bryan of orthopedics. Disposition: Admission Impression: Acute fall Acute left nondisplaced intertrochanteric hip fracture This note was generated with [employer] dictation software. It may contain incorrect words, spelling, and punctuation that were not noted in review of the chart prior to signing ED Disposition - Plan for ED Patient: Chief Complaint: Fall Referrals: Ric Coronado PA [Primary Care Provider] -
[2018-05-22] MEDS: HYDROmorphone 1 MG/ML Syringe IV ×2 (12:56→16:01)
[2018-05-22] MEDS: Ondansetron 4 MG/2 ML Vial IV (12:56)
--- NOTE | 2018-05-22 13:20 | RAD_ITS ---
STUDY: X-RAY - LEFT FEMUR REASON FOR STUDY: Male, 62 years old. Pain following a fall. TECHNIQUE: 2 view(s) and 7 images of the femur. COMPARISON: None. FINDINGS: Normal visualized femur. Normal visualized soft tissue structure. RAD/Femur Min 2 Views IMPRESSION: Normal x-ray examination of the femur. Electronically Signed: Alan Silveira MD at 13:48 EST Tel [phone], Service support ,
--- NOTE | 2018-05-22 13:51 | RAD_ITS ---
STUDY: X-RAY CHEST REASON FOR EXAM: Male, 62 years old. Preoperative evaluation. TECHNIQUE: Single AP portable view of the chest. COMPARISON: Comparison is made with prior study dated November 01, 2017. FINDINGS: Blunting of the left costophrenic angle. Mild increased markings at the left lung base suggestive of left basilar atelectasis. There is mild cardiac enlargement. Normal mediastinum and arya. Normal visualized pulmonary arteries. Normal visualized aortic arch and descending thoracic aorta. Normal visualized thoracic spine. Normal visualized ribs, clavicles, and shoulders. There is no demonstrated abnormality of the visualized soft tissue structures of the upper abdomen. RAD/Chest 1 View (Portable) IMPRESSION: Mild increased markings at the left lung base suggestive of atelectasis with blunting of the left costophrenic angle. Electronically Signed: Alan Silveira MD at 14:32 EST Tel [phone], Service support ,
--- NOTE | 2018-05-22 14:41 | CT_ITS ---
STUDY: CT PELVIS WITHOUT CONTRAST REASON FOR EXAM: Male, 62 years old. Left hip pain following a fall. RADIATION DOSAGE (If Supplied By Facility): CTDIvol = ( 40.62 ) mGy, DLP = ( 1419.90 ) mGycm TECHNIQUE: Transaxial imaging of the pelvis was performed with oral contrast, and without intravenous administration of contrast material. Multiplanar coronal and sagittal images were reformatted. Individualized dose optimization techniques were used for this CT. COMPARISON: None. FINDINGS: Normal urinary bladder. Bilateral hydroceles worse on the left side. Small amount of fluid in the pelvis. Fluid is also seen along the right paracolic gutter suggestive of ascites. Normal visualized small intestine. Normal visualized colon. There is no pelvic mass lesion or lymphadenopathy. There is diffuse atherosclerotic calcification of the pelvic arteries. Small umbilical hernia. Increased densities are seen within the umbilical hernia. There is evidence of a nondisplaced left intertrochanteric fracture. CT/Pelvis without IV Contrast IMPRESSION: Nondisplaced left intertrochanteric fracture. Electronically Signed: Alan Silveira MD at 15:48 EST Tel [phone], Service support ,
[2018-05-22 15:12] LABS: Hemoglobin 13.4 g/dl (13.0-16.5); Mean Corp Hgb Conc 35.3 g/gl (32-36); Mean Corpuscular Hgb 31.2 pg (27.0-32.0); Mean Corpuscular Volume 88.4 fL (80-94); Platelet Count 220 K/mm3 (150-450); RBC Distribution Width CV 15.2 % (11.6-14.6); RBC Distribution Width SD 48.9 fl (35.1-43.9); White Blood Count 12.8 K/mm3 (4.4-11.0)
[2018-05-22 15:30] VITALS: RESP 16; O2SAT 97
--- NOTE | 2018-05-22 15:35 | NURSING ---
DR PITO BEDOYA
[2018-05-22 15:37] LABS: Scan Indicated on CBC? Y/N NO
[2018-05-22 15:47] LABS: International Normalized Ratio 1.6; Prothrombin Time (Protime)PT. 18.8 SECONDS (11.7-14.9)
[2018-05-22 15:48] LABS: Partial Thromboplast Time 38.3 Seconds (24.1-36.2)
[2018-05-22 15:52] LABS: AST(SGOT) 50 U/L (15-37); Alanine Aminotransfer ALT/SGPT 31 U/L (16-61); Albumin, Serum 2.7 g/dL (3.2-5.0); Alkaline Phosphatase 185 U/L (45-117); Anion Gap 9 (5-15); BUN 5 mg/dL (7-18); Bilirubin, Direct 1.96 mg/dL (0.00-0.30); Calcium,Total 8.1 mg/dL (8.5-10.1); Chloride 104 mmol/L (98-107); Creatinine, Serum 0.72 mg/dL (0.70-1.30); EST Glomerular Filtration Rate 119 mL/min (>60); Est Glom Filt Rate - Afr Amer 144 mL/min (>60); Globulin 4.2 g/dL (2.2-4.2); Glucose 116 mg/dL (74-106); Protein, Total 6.9 g/dL (6.4-8.2); Sodium Level 139 mmol/L (136-145)
--- NOTE | 2018-05-22 15:56 | PCM.HP.STD ---
Problem List (1) Closed left hip fracture Status: Acute Qualifiers: Encounter type: initial encounter Qualified Code(s): S72.002A - Fracture of unspecified part of neck of left femur, initial encounter for closed fracture History of Present Illness Date of Admission: 05/22/18 Chief Complaint: left hip pain. The patient is a 62 year old M who was in his normal state of health was going to his door as patient at [employer] shipment and then lost his balance and fell. Patient stated that he hit his head as well as his left hip. Patient said he heard a pop and then had immediate pain in his left hip. Patient underwent x-ray that report was negative the patient did undergo a CAT scan that showed nondisplaced left intertrochanteric fracture. Orthopedics, with Dr. Bryan, was notified and consultation with plans for surgery. Patient states that he does routinely feel dizzy and sometimes loses balance but not overtly fall. 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 [] Past Medical History Past Medical History (Chronic Problems): Chronic Problems Hepatitis C (Chronic) Hepatic cirrhosis (Chronic) Chronic obstructive lung disease (Chronic) Allergies ketorolac [From Toradol] Allergy (Verified 05/22/18 12:05) Hives morphine Adverse Reaction (Verified 05/22/18 12:05) Vomiting Home Medications: Ambulatory Orders Medication Instructions Recorded Albuterol Inhaler [Ventolin Hfa] 1 puff INHALATION PRN PRN 04/07/13 Losartan Potassium [Cozaar] 50 mg PO DAILY 03/22/17 Glecaprevir/Pibrentasvir [Mavyret 3 tab PO DAILY 05/15/18 100-40 mg Tablet] Hydroxyzine HCl 25 mg PO DAILY 05/15/18 traMADol [Ultram (G)] 50 mg PO Q6H PRN PRN 05/15/18 Fluoxetine HCl 40 mg PO DAILY 05/22/18 Fluticasone 0.05% [Flonase Nasal 2 puff NASAL DAILY 05/22/18 [place]] Polyvinyl Alcohol [Artificial 2 drop EACH EYE DAILY 05/22/18 Tears] Ranitidine HCl 150 mg PO BID 05/22/18 Surgical History: appendectomy Psychiatric History: Anxiety Lives: Alone Smoking Status: Heavy Smoker (>10/day) Tobacco Use: Non-smoker Alcohol: None Drugs: None - *Family History Maternal History Items: Unknown - Patient is adopted Review of Systems Constitutional: Denies: Anorexia, Chills, Fever Eyes: Reports: - - blind HEENT: Denies: Head Aches, Sinus Congestion, Sinus Drainage Cardiovascular: Reports: Edema. Denies: Chest Pain, Palpitations Respiratory: Denies: Cough, Shortness of breath at rest, Sputum production Gastrointestinal: Reports: Abdominal Pain - chronic. Denies: Constipation, Diarrhea Genitourinary: Denies: Dysuria Musculoskeletal: Reports: Leg Pain - left hip. Denies: Joint Pain, Joint Tenderness Skin: Denies: Rash, Wounds Neurological: Denies: Numbness, Tingling, Focal weakness Psychiatric: Reports: Anxiety. Denies: Depression Hematologic/ Lymphatic: Denies: Easy Bruising, Easy Bleeding, Hx of blood clot Comment: A 10 point review of systems were negative except as mentioned in the history of present illness and the other review of systems. VTE Information - Inpt Only VTE Present on Admission: No VTE Pharm Prophylaxis ordered?: Yes Patient Problems: Active and Suspected Problems Closed left hip fracture (Acute) - Physical Exam General: Alert, Cooperative, No apparent distress HEENT: Atraumatic, Normocephalic, - - Segment cataracts over both eyes. Oral: Moist Mucosa, - - poor dentition Neck: No Nodes, Thyroid Normal Size and Texture Lungs: Clear to auscultation, Normal air movement, No rhonchi, No wheeze Cardiovascular: Regular rate, Regular Rhythm, Normal S1, Normal S2, No murmurs Abdomen: Bowel Sounds Present, Soft, Non Tender, Non-Distended, No Hepato-splenomegaly Extremities: Edema, - - Shortened left lower extremity as compared to the right Skin: No rashes, No breakdown Musculoskeletal: No Muscle Wasting, - - Left hip tender to with a subtle movement of the left lower extremity Lymphatic: No Cervical, Supraclavicular, or Inguinal Adenopathy, Cervical Adenopathy Neurological: Sensory exam intact to light touch and pain, - - No clonus Psych/Mental Status: Normal Affect, Appropriate Vital Signs Temp Pulse Resp BP Pulse Ox 36.8 C 101 H 16 133/77 H 97 05/22/18 12:05 05/22/18 12:05 05/22/18 15:30 05/22/18 12:05 05/22/18 15:30 Oxygen Delivery Method Room Air Weight: 90.718 kg Body Mass Index (BMI) 26.4 Laboratory Tests Past 24 Hrs 05/22/18 05/22/18 05/22/18 14:21 14:21 14:21 WBC Cancelled Corrected WBC Cancelled RBC Cancelled Hgb Cancelled Hct Cancelled MCV Cancelled MCH Cancelled MCHC Cancelled RDW Cancelled RDW Differential Cancelled Plt Count Cancelled MPV Cancelled Diff Path Review Cancelled PT Cancelled INR Cancelled APTT Cancelled Sodium Cancelled Potassium Cancelled Chloride Cancelled Carbon Dioxide Cancelled Anion Gap Cancelled BUN Cancelled Creatinine Cancelled Estim Creat Clear Calc Cancelled Est GFR (MDRD) Af Amer Cancelled Est GFR (MDRD) Non-Af Cancelled BUN/Creatinine Ratio Cancelled Glucose Cancelled Calcium Cancelled Total Bilirubin Cancelled Direct Bilirubin Cancelled AST Cancelled ALT Cancelled Alkaline Phosphatase Cancelled Total Protein Cancelled Albumin Cancelled Globulin Cancelled Blood Type A1 Antigen Typing Rho(D) Type Antibody Screen 05/22/18 05/22/18 05/22/18 14:21 15:00 15:00 WBC 12.8 H Corrected WBC RBC 4.30 L Hgb 13.4 Hct 38.0 L MCV 88.4 MCH 31.2 MCHC 35.3 RDW 15.2 H RDW Differential 48.9 H Plt Count 220 MPV 11.0 Diff Path Review PT 18.8 H INR 1.6 APTT 38.3 H Sodium Potassium Chloride Carbon Dioxide Anion Gap BUN Creatinine Estim Creat Clear Calc Est GFR (MDRD) Af Amer Est GFR (MDRD) Non-Af BUN/Creatinine Ratio Glucose Calcium Total Bilirubin Direct Bilirubin AST ALT Alkaline Phosphatase Total Protein Albumin Globulin Blood Type Cancelled A1 Antigen Typing Cancelled Rho(D) Type Cancelled Antibody Screen Cancelled 05/22/18 05/22/18 15:00 15:00 WBC Corrected WBC RBC Hgb Hct MCV MCH MCHC RDW RDW Differential Plt Count MPV Diff Path Review PT INR APTT Sodium 139 Potassium 3.0 L Chloride 104 Carbon Dioxide 26.0 Anion Gap 9 BUN 5 L Creatinine 0.72 Estim Creat Clear Calc 123.30 Est GFR (MDRD) Af Amer 144 Est GFR (MDRD) Non-Af 119 BUN/Creatinine Ratio 7.0 L Glucose 116 H Calcium 8.1 L Total Bilirubin 3.10 H Direct Bilirubin 1.96 H AST 50 H ALT 31 Alkaline Phosphatase 185 H Total Protein 6.9 Albumin 2.7 L Globulin 4.2 Blood Type Pending A1 Antigen Typing Rho(D) Type Antibody Screen Pending Clinical Impression(s) from Imaging Studies Pelvis X-Ray 05/22/18 12:37 IMPRESSION: Normal x-ray examination of the pelvis. Electronically Signed: Alan Silveira MD at 13:47 EST Tel [phone], Service support , Femur X-Ray 05/22/18 13:20 IMPRESSION: Normal x-ray examination of the femur. Electronically Signed: Alan Silveira MD at 13:48 EST Tel [phone], Service support , ADDENDUM: 05/22/18 1426 Chest X-Ray 05/22/18 13:51 IMPRESSION: Mild increased markings at the left lung base suggestive of atelectasis with blunting of the left costophrenic angle. Electronically Signed: Alan Silveira MD at 14:32 EST Tel [phone], Service support , Pelvis CT 05/22/18 14:41 IMPRESSION: Nondisplaced left intertrochanteric fracture. Electronically Signed: Alan Silveira MD at 15:48 EST Tel [phone], Service support , Assessment/Plan All Active Problems Closed left hip fracture (Acute) Strain of groin (Acute) 1. Acute left hip fracture Status post mechanical fall Patient has a decent performance status and nothing to preclude him from going to surgery. Patient is medically optimized to proceed with surgery understandably patient's not low risk given his medical complexity with hepatitis C and cirrhosis Bedrest until after surgery 2. Hypokalemia Replace Check magnesium 3. Cirrhosis Meld score of 18 Child Chan grade C Comp case over all medical care 4. Coagulopathy Secondary to the patient's underlying cirrhosis Will give vitamin K and reevaluate INR in the morning 5. DVT prophylaxis with SCDs Code Visit Inpatient E&M: 76011 Init Hosp L3
[2018-05-22 15:57] VITALS: BMI 26.4
--- NOTE | 2018-05-22 16:03 | NURSING ---
MED SURG LT HIP FX [facility]
--- NOTE | 2018-05-22 16:06 | HP.PCM_ITS ---
Problem List (1) Closed left hip fracture Status: Acute Qualifiers: Encounter type: initial encounter Qualified Code(s): S72.002A - Fracture of unspecified part of neck of left femur, initial encounter for closed fracture History of Present Illness Date of Admission: 05/22/18 Chief Complaint: left hip pain. The patient is a 62 year old M who was in his normal state of health was going to his door as patient at [employer] shipment and then lost his balance and fell. Patient stated that he hit his head as well as his left hip. Patient said he heard a pop and then had immediate pain in his left hip. Patient underwent x- ray that report was negative the patient did undergo a CAT scan that showed nondisplaced left intertrochanteric fracture. Orthopedics, with Dr. Bryan, was notified and consultation with plans for surgery. Patient states that he does routinely feel dizzy and sometimes loses balance but not overtly fall. 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 [] Past Medical History Past Medical History (Chronic Problems): Chronic Problems Hepatitis C (Chronic) Hepatic cirrhosis (Chronic) Chronic obstructive lung disease (Chronic) Allergies ketorolac [From Toradol] Allergy (Verified 05/22/18 12:05) Hives morphine Adverse Reaction (Verified 05/22/18 12:05) Vomiting Home Medications: Ambulatory Orders Medication Instructions Recorded Albuterol Inhaler [Ventolin Hfa] 1 puff INHALATION PRN PRN 04/07/13 Losartan Potassium [Cozaar] 50 mg PO DAILY 03/22/17 Glecaprevir/Pibrentasvir [Mavyret 3 tab PO DAILY 05/15/18 100-40 mg Tablet] Hydroxyzine HCl 25 mg PO DAILY 05/15/18 traMADol [Ultram (G)] 50 mg PO Q6H PRN PRN 05/15/18 Fluoxetine HCl 40 mg PO DAILY 05/22/18 Fluticasone 0.05% [Flonase Nasal 2 puff NASAL DAILY 05/22/18 [place]] Polyvinyl Alcohol [Artificial 2 drop EACH EYE DAILY 05/22/18 [place]] Ranitidine HCl 150 mg PO BID 05/22/18 Surgical History: appendectomy Psychiatric History: Anxiety Lives: Alone Smoking Status: Heavy Smoker (>10/day) Tobacco Use: Non-smoker Alcohol: None Drugs: None - *Family History Maternal History Items: Unknown - Patient is adopted Review of Systems Constitutional: Denies: Anorexia, Chills, Fever Eyes: Reports: - - blind HEENT: Denies: Head Aches, Sinus Congestion, Sinus Drainage Cardiovascular: Reports: Edema. Denies: Chest Pain, Palpitations Respiratory: Denies: Cough, Shortness of breath at rest, Sputum production Gastrointestinal: Reports: Abdominal Pain - chronic. Denies: Constipation, Diarrhea Genitourinary: Denies: Dysuria Musculoskeletal: Reports: Leg Pain - left hip. Denies: Joint Pain, Joint Tenderness Skin: Denies: Rash, Wounds Neurological: Denies: Numbness, Tingling, Focal weakness Psychiatric: Reports: Anxiety. Denies: Depression Hematologic/ Lymphatic: Denies: Easy Bruising, Easy Bleeding, Hx of blood clot Comment: A 10 point review of systems were negative except as mentioned in the history of present illness and the other review of systems. VTE Information - Inpt Only VTE Present on Admission: No VTE Pharm Prophylaxis ordered?: Yes Patient Problems: Active and Suspected Problems Closed left hip fracture (Acute) - Physical Exam General: Alert, Cooperative, No apparent distress HEENT: Atraumatic, Normocephalic, - - Segment cataracts over both eyes. Oral: Moist Mucosa, - - poor dentition Neck: No Nodes, Thyroid Normal Size and Texture Lungs: Clear to auscultation, Normal air movement, No rhonchi, No wheeze Cardiovascular: Regular rate, Regular Rhythm, Normal S1, Normal S2, No murmurs Abdomen: Bowel Sounds Present, Soft, Non Tender, Non-Distended, No Hepato- splenomegaly Extremities: Edema, - - Shortened left lower extremity as compared to the right Skin: No rashes, No breakdown Musculoskeletal: No Muscle Wasting, - - Left hip tender to with a subtle movement of the left lower extremity Lymphatic: No Cervical, Supraclavicular, or Inguinal Adenopathy, Cervical Adenopathy Neurological: Sensory exam intact to light touch and pain, - - No clonus Psych/Mental Status: Normal Affect, Appropriate Vital Signs Temp Pulse Resp BP Pulse Ox 36.8 C 101 H 16 133/77 H 97 05/22/18 12:05 05/22/18 12:05 05/22/18 15:30 05/22/18 12:05 05/22/18 15:30 Oxygen Delivery Method Room Air Weight: 90.718 kg Body Mass Index (BMI) 26.4 Laboratory Tests Past 24 Hrs 05/22/18 05/22/18 05/22/18 14:21 14:21 14:21 WBC Cancelled Corrected WBC Cancelled RBC Cancelled Hgb Cancelled Hct Cancelled MCV Cancelled MCH Cancelled MCHC Cancelled RDW Cancelled RDW Differential Cancelled Plt Count Cancelled MPV Cancelled Diff Path Review Cancelled PT Cancelled INR Cancelled APTT Cancelled Sodium Cancelled Potassium Cancelled Chloride Cancelled Carbon Dioxide Cancelled Anion Gap Cancelled BUN Cancelled Creatinine Cancelled Estim Creat Clear Calc Cancelled Est GFR (MDRD) Af Amer Cancelled Est GFR (MDRD) Non-Af Cancelled BUN/Creatinine Ratio Cancelled Glucose Cancelled Calcium Cancelled Total Bilirubin Cancelled Direct Bilirubin Cancelled AST Cancelled ALT Cancelled Alkaline Phosphatase Cancelled Total Protein Cancelled Albumin Cancelled Globulin Cancelled Blood Type A1 Antigen Typing Rho(D) Type Antibody Screen 05/22/18 05/22/18 05/22/18 14:21 15:00 15:00 WBC 12.8 H Corrected WBC RBC 4.30 L Hgb 13.4 Hct 38.0 L MCV 88.4 MCH 31.2 MCHC 35.3 RDW 15.2 H RDW Differential 48.9 H Plt Count 220 MPV 11.0 Diff Path Review PT 18.8 H INR 1.6 APTT 38.3 H Sodium Potassium Chloride Carbon Dioxide Anion Gap BUN Creatinine Estim Creat Clear Calc Est GFR (MDRD) Af Amer Est GFR (MDRD) Non-Af BUN/Creatinine Ratio Glucose Calcium Total Bilirubin Direct Bilirubin AST ALT Alkaline Phosphatase Total Protein Albumin Globulin Blood Type Cancelled A1 Antigen Typing Cancelled Rho(D) Type Cancelled Antibody Screen Cancelled 05/22/18 05/22/18 15:00 15:00 WBC Corrected WBC RBC Hgb Hct MCV MCH MCHC RDW RDW Differential Plt Count MPV Diff Path Review PT INR APTT Sodium 139 Potassium 3.0 L Chloride 104 Carbon Dioxide 26.0 Anion Gap 9 BUN 5 L Creatinine 0.72 Estim Creat Clear Calc 123.30 Est GFR (MDRD) Af Amer 144 Est GFR (MDRD) Non-Af 119 BUN/Creatinine Ratio 7.0 L Glucose 116 H Calcium 8.1 L Total Bilirubin 3.10 H Direct Bilirubin 1.96 H AST 50 H ALT 31 Alkaline Phosphatase 185 H Total Protein 6.9 Albumin 2.7 L Globulin 4.2 Blood Type Pending A1 Antigen Typing Rho(D) Type Antibody Screen Pending Clinical Impression(s) from Imaging Studies Pelvis X-Ray 05/22/18 12:37 IMPRESSION: Normal x-ray examination of the pelvis. Electronically Signed: Alan Silveira MD at 13:47 EST Tel [phone], Service support , Femur X-Ray 05/22/18 13:20 IMPRESSION: Normal x-ray examination of the femur. Electronically Signed: Alan Silveira MD at 13:48 EST Tel [phone], Service support , ADDENDUM: 05/22/18 1426 Chest X-Ray 05/22/18 13:51 IMPRESSION: Mild increased markings at the left lung base suggestive of atelectasis with blunting of the left costophrenic angle. Electronically Signed: Alan Silveira MD at 14:32 EST Tel [phone], Service support , Pelvis CT 05/22/18 14:41 IMPRESSION: Nondisplaced left intertrochanteric fracture. Electronically Signed: Alan Silveira MD at 15:48 EST Tel [phone], Service support , Assessment/Plan All Active Problems Closed left hip fracture (Acute) Strain of groin (Acute) 1. Acute left hip fracture * Status post mechanical fall * Patient has a decent performance status and nothing to preclude him from going to surgery. Patient is medically optimized to proceed with surgery understandably patient's not low risk given his medical complexity with hepatitis C and cirrhosis * Bedrest until after surgery 2. Hypokalemia * Replace * Check magnesium 3. Cirrhosis * Meld score of 18 * Child Chan grade C * Comp case over all medical care 4. Coagulopathy * Secondary to the patient's underlying cirrhosis * Will give vitamin K and reevaluate INR in the morning 5. DVT prophylaxis with SCDs Code Visit Inpatient E&M: 81971 Init Hosp L3
[2018-05-22 16:10] VITALS: BP 149/77; PULSE 87; RESP 16; O2SAT 93
[2018-05-22 17:06] VITALS: BMI 28.3
[2018-05-22 17:07] VITALS: BP 145/85; PULSE 97; RESP 18; TEMP 37.5; O2SAT 95
[2018-05-22] MEDS: oxyCODONE 5 MG Tablet PO (17:46)
[2018-05-22] MEDS: Phytonadione (Vit K) 10 MG/ML Ampul 5 MG PO (17:48)
--- NOTE | 2018-05-22 18:42 | CT_ITS ---
STUDY: CT BRAIN WITHOUT CONTRAST REASON FOR EXAM: Male, 62 years old. Fall RADIATION DOSAGE (If Supplied By Facility): CTDIvol = ( 44.99 ) mGy, DLP = ( 779.24 ) mGycm TECHNIQUE: Transaxial CT imaging of the brain was performed without administration of intravenous contrast material. Individualized dose optimization techniques were used for this CT. COMPARISON: None. FINDINGS: There is no acute bleed or infarct. There are chronic ischemic and atrophic changes. The ventricles are normal in configuration. There is no hydrocephalus. The visualized paranasal sinuses are clear. The mastoid air cells are well aerated. There is no skull fracture. There are postsurgical changes noted in the left eye.. There is high density within the left lobe which may represent blood, but is of uncertain chronicity. Correlation with the patient's surgical history is recommended. CT/Brain/Head without Contrast IMPRESSION: No acute intracranial abnormality. Chronic ischemic and atrophic changes. Postsurgical changes noted in the left eye. High density within the left lobe which may represent blood, but is of uncertain chronicity. Correlation with the patient's surgical history is recommended. Electronically Signed: Ranjit Teague, at 19:54 EST Tel , Service support ,
[2018-05-22] MEDS: traMADol 50 MG Tablet PO (19:54)
[2018-05-22 20:40] VITALS: O2SAT 94
[2018-05-22 23:45] VITALS: BP 145/75; PULSE 98; RESP 16; TEMP 37.1; O2SAT 93
[2018-05-22] MEDS: Famotidine 20 MG Tablet PO (23:47)
[2018-05-23] VITALS (10 sets, daily range): BP systolic 123–166; BP diastolic 73–86; PULSE 70–92; RESP 16–18; TEMP 36.5–37.4; O2SAT 92–97; BMI 28.3; BMI 28.8
[2018-05-23] MEDS: oxyCODONE 5 MG Tablet PO ×4 (00:05→23:48)
[2018-05-23] MEDS: traMADol 50 MG Tablet PO ×3 (03:10→16:29)
--- NOTE | 2018-05-23 06:00 | EKG12_ITS ---
Test Reason : PRE OP Blood Pressure : / mmHG Vent. Rate : 089 BPM Atrial Rate : 089 BPM P-R Int : 154 ms QRS Dur : 082 ms QT Int : 392 ms P-R-T Axes : 061 047 014 degrees QTc Int : 476 ms Sinus rhythm with marked sinus arrhythmia Confirmed by BALDOMERO TRAN, MIGUELINA ([id number]), image editor MAT BONDS ([id number]) on 05/28/2018 2:50:54 PM Referred By: P[facility]O Confirmed By:MIGUELINA ALEXANDRE MD
[2018-05-23] MEDS: 0.9% NaCl Peripheral Flush Adult/Peds IV (06:35)
[2018-05-23] MEDS: Ondansetron 4 MG/2 ML Vial IV (06:35)
[2018-05-23 07:41] LABS: International Normalized Ratio 1.4; Prothrombin Time (Protime)PT. 17.6 SECONDS (11.7-14.9)
[2018-05-23 07:43] LABS: Absolute Lymphocyte Count 1.93 X10^3/ul (0.83-4.51); Basophil# 0.07 X10^3/uL; Basophil% 0.6 % (0-1); Eosinophil# 0.33 X10^3/uL; Eosinophils% 2.7 % (0-5); Hematocrit 37.5 % (40-54); Hemoglobin 12.7 g/dl (13.0-16.5); Lymphocyte # 1.93 X10^3/ul (4.0); Lymphocyte % 15.8 % (19-41); Mean Corp Hgb Conc 33.9 g/gl (32-36); Mean Corpuscular Hgb 30.6 pg (27.0-32.0); Mean Corpuscular Volume 90.4 fL (80-94); Mean Platelet Vol. 10.9 fl (6.2-12.0); Monocyte# 1.91 X10^3/uL; Monocyte% 15.6 % (0-10); Neutrophil # 7.95 X10^3/uL (2.7-7.7); Platelet Count 222 K/mm3 (150-450); RBC Distribution Width CV 15.5 % (11.6-14.6); RBC Distribution Width SD 51.2 fl (35.1-43.9); Red Blood Count 4.15 M/mm3 (4.6-6.2); White Blood Count 12.2 K/mm3 (4.4-11.0)
[2018-05-23 07:44] LABS: Differential Indicated SCAN CRITERIA MET; POSITIVE COUNT NO; POSITIVE DIFFERENTIAL YES; POSITIVE MORPHOLOGY YES
[2018-05-23 08:14] LABS: ALB/GLOB Ratio 0.6 RATIO (0.9-2.4); AST(SGOT) 47 U/L (15-37); Alanine Aminotransfer ALT/SGPT 30 U/L (16-61); Albumin, Serum 2.5 g/dL (3.2-5.0); Alkaline Phosphatase 172 U/L (45-117); Anion Gap 8 (5-15); BUN 6 mg/dL (7-18); BUN/Creat Ratio 7.5 RATIO (10-20); Calcium,Total 8.4 mg/dL (8.5-10.1); Chloride 104 mmol/L (98-107); EST Glomerular Filtration Rate 105 mL/min (>60); Est Glom Filt Rate - Afr Amer 127 mL/min (>60); Estimated Creatinine Clearance 110.97 ml/min; Globulin 4.3 g/dL (2.2-4.2); Glucose 99 mg/dL (74-106); Magnesium 1.8 mg/dL (1.6-2.6); Phosphorus 2.7 mg/dL (2.5-4.9); Potassium 3.3 mmol/L (3.5-5.1); Protein, Total 6.8 g/dL (6.4-8.2); Sodium Level 139 mmol/L (136-145)
[2018-05-23] MEDS: Fluticasone 0.05% 1 SPRAY NASAL.SRY 2 SPRAY NASAL (09:56)
[2018-05-23] MEDS: Famotidine 20 MG Tablet PO ×2 (09:56→22:53)
--- NOTE | 2018-05-23 10:49 | PCM.PN.HOSP ---
Patient Problems: Active and Suspected Problems Closed left hip fracture (Acute) Subjective: Patient was seen and examined. Going for surgery this afternoon. Denies any pain. He is legally blind. Vitals/I&O's: Vital Signs Temp Pulse Resp BP Pulse Ox 99.4 F H 82 18 154/86 H 95 05/23/18 07:45 05/23/18 07:45 05/23/18 07:45 05/23/18 07:45 05/23/18 07:45 Oxygen Delivery Method Room Air Weight: 97.477 kg Body Mass Index (BMI) 28.3 Intake and Output for Last 24 Hours 05/21/18 05/22/18 05/23/18 23:59 23:59 23:59 Intake Total 420 / 420 Output Total 500 / 500 Balance -80 / -80 General: Alert, Oriented x3, Cooperative, No apparent distress HEENT: Atraumatic, PERRLA, EOMI, Normocephalic, - - Legally blind Oral: Moist Mucosa Neck: Supple, No JVD, Negative Carotid Bruits Lungs: Clear to auscultation, Normal air movement Cardiovascular: Regular rate, No murmurs Abdomen: Bowel Sounds Present, Soft, Non Tender, Non-Distended, No Hepato-splenomegaly Extremities: No edema, - - Tenderness over the left hip Skin: No rashes, No breakdown Musculoskeletal: Tenderness - Over the left hip Lymphatic: No Cervical, Supraclavicular, or Inguinal Adenopathy Neurological: Cranial nerves II-XII grossly intact, Neuro grossly intact Psych/Mental Status: Normal Affect, Appropriate Laboratory Results 05/22/18 14:21: WBC Cancelled, Corrected WBC Cancelled, RBC Cancelled, Hgb Cancelled, Hct Cancelled, MCV Cancelled, MCH Cancelled, MCHC Cancelled, RDW Cancelled, RDW Differential Cancelled, Plt Count Cancelled, MPV Cancelled, Diff Path Review Cancelled 05/22/18 14:21: PT Cancelled, INR Cancelled, APTT Cancelled 05/22/18 14:21: Sodium Cancelled, Potassium Cancelled, Chloride Cancelled, Carbon Dioxide Cancelled, Anion Gap Cancelled, BUN Cancelled, Creatinine Cancelled, Estim Creat Clear Calc Cancelled, Est GFR (MDRD) Af Amer Cancelled, Est GFR (MDRD) Non-Af Cancelled, BUN/Creatinine Ratio Cancelled, Glucose Cancelled, Calcium Cancelled, Total Bilirubin Cancelled, Direct Bilirubin Cancelled, AST Cancelled, ALT Cancelled, Alkaline Phosphatase Cancelled, Total Protein Cancelled, Albumin Cancelled, Globulin Cancelled 05/22/18 14:21: Blood Type Cancelled, A1 Antigen Typing Cancelled, Rho(D) Type Cancelled, Antibody Screen Cancelled 05/22/18 15:00: WBC 12.8 H, RBC 4.30 L, Hgb 13.4, Hct 38.0 L, MCV 88.4, MCH 31.2, MCHC 35.3, RDW 15.2 H, RDW Differential 48.9 H, Plt Count 220, MPV 11.0 05/22/18 15:00: PT 18.8 H, INR 1.6, APTT 38.3 H 05/22/18 15:00: Sodium 139, Potassium 3.0 L, Chloride 104, Carbon Dioxide 26.0, Anion Gap 9, BUN 5 L, Creatinine 0.72, Estim Creat Clear Calc 123.30, Est GFR (MDRD) Af Amer 144, Est GFR (MDRD) Non-Af 119, BUN/Creatinine Ratio 7.0 L, Glucose 116 H, Calcium 8.1 L, Total Bilirubin 3.10 H, Direct Bilirubin 1.96 H, AST 50 H, ALT 31, Alkaline Phosphatase 185 H, Total Protein 6.9, Albumin 2.7 L, Globulin 4.2 05/22/18 15:00: Blood Type B NEGATIVE, Antibody Screen NEGATIVE 05/23/18 06:37: Sodium 139, Potassium 3.3 L, Chloride 104, Carbon Dioxide 27.0, Anion Gap 8, BUN 6 L, Creatinine 0.80, Estim Creat Clear Calc 110.97, Est GFR (MDRD) Af Amer 127, Est GFR (MDRD) Non-Af 105, BUN/Creatinine Ratio 7.5 L, Glucose 99, Calcium 8.4 L, Phosphorus 2.7, Magnesium 1.8, Total Bilirubin 2.80 H, AST 47 H, ALT 30, Alkaline Phosphatase 172 H, Total Protein 6.8, Albumin 2.5 L, Globulin 4.3 H, Albumin/Globulin Ratio 0.6 L 05/23/18 06:37: PT 17.6 H, INR 1.4 05/23/18 06:37: WBC 12.2 H, RBC 4.15 L, Hgb 12.7 L, Hct 37.5 L, MCV 90.4, MCH 30.6, MCHC 33.9, RDW 15.5 H, RDW Differential 51.2 H, Plt Count 222, MPV 10.9, Immature Gran % (Auto) 0.300, Neut % (Auto) 65.0, Lymph % (Auto) 15.8 L, [place] % (Auto) 15.6 H, Eos % (Auto) 2.7, Baso % (Auto) 0.6, Absolute Neuts (auto) 8.0 H, Absolute Lymphs (auto) 1.93, Total Counted Not Reportable, Diff Path Review May foll Current Medications Albuterol Sulfate (Ventolin Aerosols) 2.5 mg INHALATION Q4H PRN PRN Reason: SOB/ COUGH Famotidine (Pepcid) 20 mg PO BID [facility] Last Admin: 05/23/18 09:56 Dose: 20 mg Fluoxetine HCl (Prozac) 40 mg PO DAILY [facility] Last Admin: 05/23/18 09:59 Dose: Not Given Fluticasone Propionate (Flonase Nasal [place]) 2 spray NASAL DAILY [facility] Last Admin: 05/23/18 09:56 Dose: 2 spray Hydroxyzine Pamoate (Vistaril Pamoate Capsule) 25 mg PO DAILY [facility] Last Admin: 05/23/18 09:59 Dose: Not Given Cefazolin Sodium 2 gm/ Sodium (Chloride) 120 mls @ 240 mls/hr IV SEND TO OR W/PATIENT ONE Stop: 05/23/18 11:29 Losartan Potassium (Cozaar) 50 mg PO DAILY [facility] Last Admin: 05/23/18 09:55 Dose: Not Given Magnesium Hydroxide (Milk Of Magnesia) 30 ml PO DAILY PRN PRN PRN Reason: Constipation Non-Formulary Medication (Glecaprevir/Pibrentasvir [Mavyret 100-40 Mg Tablet]) 3 tab PO DAILY [facility] Ondansetron HCl (Zofran) 4 mg IV Q8H PRN PRN PRN Reason: NAUSEA Last Admin: 05/23/18 06:35 Dose: 4 mg Oxycodone HCl (Oxyir) 5 - 10 mg PO Q4H PRN PRN PRN Reason: MOD-SEVERE PAIN (4-10/10) Last Admin: 05/23/18 06:35 Dose: 10 mg Sodium Chloride () 5 - 15 ml IV UD PRN PRN Reason: SALINE FLUSH Last Admin: 05/23/18 06:35 Dose: 10 ml Tramadol HCl (Ultram) 50 mg PO Q6H PRN PRN PRN Reason: PAIN Last Admin: 05/23/18 10:01 Dose: 50 mg Medical Necessity - Tobacco Use Smoking Status: Heavy Smoker (>10/day) Tobacco Use: Non-smoker Assessment/Plan All Active Problems Closed left hip fracture (Acute) Strain of groin (Acute) 62-year-old male, legally blind, with cirrhosis secondary to chronic hepatitis C, COPD, who was in his normal state of health when he stumbled at home was going to retrieve a [employer] shipment with medications. He lost his balance and fell. He hit his head as well as his left hip. He was brought to the ED and imaging showed left nondisplaced intertrochanteric fracture. Patient is going for surgery today. 1. Acute left intercostal trochanteric nondisplaced fracture, going for surgery, pain is fairly controlled 2. Leucocytosis likely reactive, no fevers, no signs of current infection, will continue to monitor 3. Hypokalemia, replace, recheck in a.m. 4. Microcytic microchromic anemia, drop in hemoglobin from 10.4-12.7, likely secondary to fracture, and IV fluid effect, will continue to monitor, check iron stores 5. Hypercoagulable state secondary to underlying cirrhosis of his liver, admitting INR was 1.6, INR today is 1.4, giving vitamin K x1, who will be monitoring INR and PTT 6. Cirrhosis of the liver secondary to underlying chronic hepatitis C, total bilirubin is improved from yesterday, AST and ALT also improved, patient will need to follow-up in the outpatient for hepatitis C treatment. 7. Hypertension, controlled, continue on losartan 8. Anxiety/depression, on fluoxetine 9. DVT prophylaxis -recommend Lovenox subcu, monitor of INR, PTT on account of hypercoagulable state from underlying cirrhosis of the liver Code Visit Inpatient E&M: 26053 Subs Hosp L1
--- NOTE | 2018-05-23 11:49 | CASEMGMT ---
SW attempted to see pt prior to surgery, however pt is on his way to surgery now. CHERYL/CM to follow up on Friday regarding discharge plan. RACHAEL Quigley, MINE ANALYST
--- NOTE | 2018-05-23 12:20 | PCM.CONS.GEN ---
Reason for Consult Date of Consultation: 05/23/18 History of Present Illness: The patient is a 62 year old male blind patient that reportedly stumbled in his home yesterday fracturing his left hip. He does have a history of some back pain, hernias. He denies pre-existing left hip pain. Patient denies any severe head injury or loss of consciousness. He was brought to the emergency room, diagnosed with a left hip intertrochanteric fracture, suspected on x-rays. Confirmed with CAT scan. Patient would like to have left hip surgery. [] Past Medical History Past Medical History (Chronic Problems): Chronic Problems Hepatitis C (Chronic) Hepatic cirrhosis (Chronic) Chronic obstructive lung disease (Chronic) Allergies ketorolac [From Toradol] Allergy (Verified 05/22/18 12:05) Hives morphine Adverse Reaction (Verified 05/22/18 12:05) Vomiting Home Medications: Ambulatory Orders Medication Instructions Recorded Albuterol Inhaler [Ventolin Hfa] 1 puff INHALATION PRN PRN 04/07/13 Losartan Potassium [Cozaar] 50 mg PO DAILY 03/22/17 Glecaprevir/Pibrentasvir [Mavyret 3 tab PO DAILY 05/15/18 100-40 mg Tablet] Hydroxyzine HCl 25 mg PO DAILY 05/15/18 traMADol [Ultram (G)] 50 mg PO Q6H PRN PRN 05/15/18 Fluoxetine HCl 40 mg PO DAILY 05/22/18 Fluticasone 0.05% [Flonase Nasal 2 puff NASAL DAILY 05/22/18 [place]] Polyvinyl Alcohol [Artificial 2 drop EACH EYE DAILY 05/22/18 [place]] Ranitidine HCl 150 mg PO BID 05/22/18 Surgical History: appendectomy Psychiatric History: Anxiety Lives: Alone Smoking Status: Heavy Smoker (>10/day) Tobacco Use: Non-smoker Alcohol: None Drugs: None - *Family History Maternal History Items: Unknown - Patient is adopted Patient Problems: Active and Suspected Problems Closed left hip fracture (Acute) Objective: Left hip has pain on palpation. Left hip has pain with gentle axial loading. Right hip has no pain. He has swelling of both legs reportedly from his cirrhosis. He can gently actively flex and extend the toes and ankles. No calf pain bilaterally. Negative Homans sign bilaterally. Skin is intact about the left hip. Medication list reviewed Vital signs and laboratory work reviewed Notes and the hospitalist and emergency room reviewed Case discussed with the anesthesia department X-rays AP pelvis AP and lateral of left hip showed a probable nondisplaced left hip intertrochanteric fracture CT scan of the pelvis, left hip did show a nondisplaced left hip intertrochanteric fracture - Physical Exam Vital Signs Temp Pulse Resp BP Pulse Ox 98.9 F 92 18 153/80 H 92 05/23/18 11:21 05/23/18 11:21 05/23/18 11:21 05/23/18 11:21 05/23/18 11:21 Oxygen Delivery Method Room Air Weight: 98.883 kg Body Mass Index (BMI) 28.8 Intake and Output for Last 24 Hours 05/21/18 05/22/18 05/23/18 23:59 23:59 23:59 Intake Total 420 / 420 Output Total 500 / 500 Balance -80 / -80 Laboratory Tests Past 24 Hrs 05/22/18 05/22/18 05/22/18 14:21 14:21 14:21 WBC Cancelled Corrected WBC Cancelled RBC Cancelled Hgb Cancelled Hct Cancelled MCV Cancelled MCH Cancelled MCHC Cancelled RDW Cancelled RDW Differential Cancelled Plt Count Cancelled MPV Cancelled Immature Gran % (Auto) Neut % (Auto) Lymph % (Auto) [place] % (Auto) Eos % (Auto) Baso % (Auto) Absolute Neuts (auto) Absolute Lymphs (auto) Total Counted Diff Path Review Cancelled PT Cancelled INR Cancelled APTT Cancelled Sodium Cancelled Potassium Cancelled Chloride Cancelled Carbon Dioxide Cancelled Anion Gap Cancelled BUN Cancelled Creatinine Cancelled Estim Creat Clear Calc Cancelled Est GFR (MDRD) Af Amer Cancelled Est GFR (MDRD) Non-Af Cancelled BUN/Creatinine Ratio Cancelled Glucose Cancelled Calcium Cancelled Phosphorus Magnesium Total Bilirubin Cancelled Direct Bilirubin Cancelled AST Cancelled ALT Cancelled Alkaline Phosphatase Cancelled Total Protein Cancelled Albumin Cancelled Globulin Cancelled Albumin/Globulin Ratio Blood Type A1 Antigen Typing Rho(D) Type Antibody Screen 05/22/18 05/22/18 05/22/18 14:21 15:00 15:00 WBC 12.8 H Corrected WBC RBC 4.30 L Hgb 13.4 Hct 38.0 L MCV 88.4 MCH 31.2 MCHC 35.3 RDW 15.2 H RDW Differential 48.9 H Plt Count 220 MPV 11.0 Immature Gran % (Auto) Neut % (Auto) Lymph % (Auto) [place] % (Auto) Eos % (Auto) Baso % (Auto) Absolute Neuts (auto) Absolute Lymphs (auto) Total Counted Diff Path Review PT 18.8 H INR 1.6 APTT 38.3 H Sodium Potassium Chloride Carbon Dioxide Anion Gap BUN Creatinine Estim Creat Clear Calc Est GFR (MDRD) Af Amer Est GFR (MDRD) Non-Af BUN/Creatinine Ratio Glucose Calcium Phosphorus Magnesium Total Bilirubin Direct Bilirubin AST ALT Alkaline Phosphatase Total Protein Albumin Globulin Albumin/Globulin Ratio Blood Type Cancelled A1 Antigen Typing Cancelled Rho(D) Type Cancelled Antibody Screen Cancelled 05/22/18 05/22/18 05/23/18 15:00 15:00 06:37 WBC Corrected WBC RBC Hgb Hct MCV MCH MCHC RDW RDW Differential Plt Count MPV Immature Gran % (Auto) Neut % (Auto) Lymph % (Auto) [place] % (Auto) Eos % (Auto) Baso % (Auto) Absolute Neuts (auto) Absolute Lymphs (auto) Total Counted Diff Path Review PT INR APTT Sodium 139 139 Potassium 3.0 L 3.3 L Chloride 104 104 Carbon Dioxide 26.0 27.0 Anion Gap 9 8 BUN 5 L 6 L Creatinine 0.72 0.80 Estim Creat Clear Calc 123.30 110.97 Est GFR (MDRD) Af Amer 144 127 Est GFR (MDRD) Non-Af 119 105 BUN/Creatinine Ratio 7.0 L 7.5 L Glucose 116 H 99 Calcium 8.1 L 8.4 L Phosphorus 2.7 Magnesium 1.8 Total Bilirubin 3.10 H 2.80 H Direct Bilirubin 1.96 H AST 50 H 47 H ALT 31 30 Alkaline Phosphatase 185 H 172 H Total Protein 6.9 6.8 Albumin 2.7 L 2.5 L Globulin 4.2 4.3 H Albumin/Globulin Ratio 0.6 L Blood Type B NEGATIVE A1 Antigen Typing Rho(D) Type Antibody Screen NEGATIVE 05/23/18 05/23/18 06:37 06:37 WBC 12.2 H Corrected WBC RBC 4.15 L Hgb 12.7 L Hct 37.5 L MCV 90.4 MCH 30.6 MCHC 33.9 RDW 15.5 H RDW Differential 51.2 H Plt Count 222 MPV 10.9 Immature Gran % (Auto) 0.300 Neut % (Auto) 65.0 Lymph % (Auto) 15.8 L [place] % (Auto) 15.6 H Eos % (Auto) 2.7 Baso % (Auto) 0.6 Absolute Neuts (auto) 8.0 H Absolute Lymphs (auto) 1.93 Total Counted Not Reportable Diff Path Review October foll PT 17.6 H INR 1.4 APTT Sodium Potassium Chloride Carbon Dioxide Anion Gap BUN Creatinine Estim Creat Clear Calc Est GFR (MDRD) Af Amer Est GFR (MDRD) Non-Af BUN/Creatinine Ratio Glucose Calcium Phosphorus Magnesium Total Bilirubin Direct Bilirubin AST ALT Alkaline Phosphatase Total Protein Albumin Globulin Albumin/Globulin Ratio Blood Type A1 Antigen Typing Rho(D) Type Antibody Screen Assessment/Plan All Active Problems Closed left hip fracture (Acute) Strain of groin (Acute) His diagnosis and treatment options regarding his left hip nondisplaced fracture discussed with him at length. Surgical and nonsurgical options discussed. He would like to proceed with proposed left hip surgery, internal fixation with a short intramedullary nail. I discussed DVT prophylaxis with the hospitalist. She recommended Lovenox 40 mg subcu daily. They will monitor his appropriate labs and clinical status and decide further. We will plan on [facility] for postoperative and preoperative antibiotics. DIEGO jung SCDs and incentive spirometer. Risk of surgery including but not limited to from operative or postoperative complications. Risk of anesthetic complications such as heart attacks, strokes, seizures, or . Risk of infections. Risk of damage to nerves arteries tendons. Risk of inadvertent fractures or dislocations. Risk of bone or wound healing complications. Possibility of nonunion malunion pain stiffness weakness. Possible need for further surgery such as hardware removal. Risk of DVT PE and other potential complications could lead to or disability explained. No guarantees were stated or implied. All of their questions were answered. Appropriate informed consent was obtained and signed for surgical intervention. Patient will continue to be managed by the hospitalist service for medical issues. Patient is blind. This note was generated with [employer] software. It may contain incorrect words, spelling, and punctuation that were not noted in checking the note before signing.
--- NOTE | 2018-05-23 12:25 | RAD_ITS ---
STUDY: X-RAY - LEFT HIP REASON FOR EXAM: Male, 62 years old. Intraoperative assessment TECHNIQUE: Six limited views of the hip were obtained. COMPARISON: May 22, 2018 FINDINGS: Limited intraoperative views of the left hip show a alberto and hip screw present. The known intertrochanteric fracture is not evident on these views. Fluoroscopy time 98.9 seconds. Cumulative dose 34.15 mGy. RAD/HIP, UNI W/ Pelvis 2-3 Views IMPRESSION: Limited views of the left hip were obtained intraoperatively during fracture fixation. Electronically Signed: Sheridan Schaefer MD at 0:56 EST Tel Direct: [phone], Service support ,
[2018-05-23] MEDS: Cefazolin 2 GM in 0.9% Normal Saline 100 ML IV (12:45)
--- NOTE | 2018-05-23 13:27 | PCM.OP.BLANK ---
Operative Report Date of Procedure: 05/23/18 Preoperative diagnosis: Left hip nondisplaced intertrochanteric fracture Postoperative diagnosis: Same Title of operation: Left hip open reduction internal fixation, intramedullary nail fixation, locked Surgeon: Dr. Timmy Bryan [employer] Assistant: Alicia Alvarez PA-C Anesthesia: General Medications: Ancef Indications for surgery: Patient is an 62-year-old male sustained a left hip fracture yesterday. Patient explained diagnosis and treatment options. Patient evaluated by the medical services. Patient did wish to have surgery. Appropriate informed consent obtained and signed. Findings: Patient had a nondisplaced stable intertrochanteric hip fracture. They underwent standard reduction, internal fixation using a Klemme short gamma nail. X-rays taken throughout. registrar assistant, physician grants and contracts assistant, was utilized throughout the entire procedure. They were vital to the procedure from beginning to end. They help with patient transfer, patient padding and positioning, fracture reduction, maintenance of fracture reduction, internal fixation of implants, wound closure, bandage application, patient transfer. Without surgical garment assembly supervisor, surgical time would have been significantly increased and surgical outcome could have been less optimal. Procedure: Patient was taken to the operating room. Placed under a general anesthetic and transferred to the operating table with the help of the grants and contracts assistant. With the help of the grants and contracts assistant patient was prepped and padded for surgery. Left foot was well-padded and placed in the traction boot. Right lower extremity was abducted and flexed out of harm's way. DIEGO hose and SCDs utilized. Fluoroscopy was brought in. With the help of the grants and contracts assistant reduction was nicely maintained as verified under AP lateral and oblique fluoroscopic images. Reduction was improved with anterior to posterior pressure on the fracture site. Was also done throughout the procedure with the help of the grants and contracts assistant as needed. Left hip was prepped padded draped in usual orthopedic sterile fashion for the procedure. Longitudinal incision was made just proximal to the greater trochanter. Taken through skin and subcutaneous tissue. Sharp awl was placed on the tip of the greater trochanter. Position verified under AP and lateral fluoroscopic images. This was then taken down inside the bone. Slightly bent ball-tipped guide alberto was then placed from the tip of the greater trochanter into the intra-medullary canal of the femur. Its position verified radiographically. Reamer was then done over the tip of this with the help of the grants and contracts assistant holding the soft tissue protector appropriately. Once reaming was done we placed the short 130? angle device over the guidepin. This was easily introduced. Guide alberto removed. Outrigger device was utilized to position a guidepin from the lateral cortex of the femur across the fracture site and into the femoral head in a good position centrally, as noted on AP lateral and oblique fluoroscopic images. This was measured. Appropriate reaming done. Appreciate length lag screw was placed from the lateral cortex of the femur into the femoral head. A small amount of the screw was noted to be protruding laterally as planned. No cartilage penetration of the femoral head noted on any x-ray. Fracture was then compressed with the outrigger device. Screw was placed seated down completely, confirmed, and then loosened one fourth turn. We then used the outrigger device to place distal cross locking screw under standard technique. This was confirmed to be of adequate length in good position on AP and lateral images. Outrigger device removed. Final set of AP and lateral proximal x-rays taken and saved. His were thoroughly irrigated. Closing by the grants and contracts assistant with deep 0 Vicryl, mid layer 0 Vicryl, inverted 2-0 Vicryl, skin elsy. Puncture wounds closed with inverted 2-0 Vicryl and elsy. Xeroform 4 x 4's ABD tape applied. Patient was awoken from their anesthetic, transferred back to their own bed with the help of the grants and contracts assistant and into recovery room in satisfactory condition. Patient will continue to be admitted to the hospital under the hospitalist service. This note was generated with [employer] dictation software. It may contain incorrect words, spelling, and punctuation that were not noted in checking the note before signing.
--- NOTE | 2018-05-23 13:31 | OP.PCM_ITS ---
Operative Report Date of Procedure: 05/23/18 Preoperative diagnosis: Left hip nondisplaced intertrochanteric fracture Postoperative diagnosis: Same Title of operation: Left hip open reduction internal fixation, intramedullary nail fixation, locked Surgeon: Dr. Timmy Bryan Supervisor Reactor Fueling: Alicia Alvarez PA-C Anesthesia: General Medications: Ancef Indications for surgery: Patient is an 62-year-old male sustained a left hip fracture yesterday. Patient explained diagnosis and treatment options. Patient evaluated by the medical services. Patient did wish to have surgery. Appropriate informed consent obtained and signed. Findings: Patient had a nondisplaced stable intertrochanteric hip fracture. They underwent standard reduction, internal fixation using a Whiteside short gamma nail. X-rays taken throughout. assistant hvac mechanic, physician application assistant, was utilized throughout the entire procedure. They were vital to the procedure from beginning to end. They help with patient transfer, patient padding and positioning, fracture reduction, maintenance of fracture reduction, internal fixation of implants, wound closure, bandage application, patient transfer. Without cook's assistant, surgical time would have been significantly increased and surgical outcome could have been less optimal. Procedure: Patient was taken to the operating room. Placed under a general anesthetic and transferred to the operating table with the help of the application assistant. With the help of the application assistant patient was prepped and padded for surgery. Left foot was well-padded and placed in the traction boot. Right lower extremity was abducted and flexed out of harm's way. DIEGO hose and SCDs utilized. Fluoroscopy was brought in. With the help of the application assistant reduction was nicely maintained as verified under AP lateral and oblique fluoroscopic images. Reduction was improved with anterior to posterior pressure on the fracture site. Was also done throughout the procedure with the help of the application assistant as needed. Left hip was prepped padded draped in usual orthopedic sterile fashion for the procedure. Longitudinal incision was made just proximal to the greater trochanter. Taken through skin and subcutaneous tissue. Sharp awl was placed on the tip of the greater trochanter. Position verified under AP and lateral fluoroscopic images. This was then taken down inside the bone. Slightly bent ball-tipped guide alberto was then placed from the tip of the greater trochanter into the intra-medullary canal of the femur. Its position verified radiographically. Reamer was then done over the tip of this with the help of the application assistant holding the soft tissue protector appropriately. Once reaming was done we placed the short 130? angle device over the guidepin. This was easily introduced. Guide alberto removed. Outrigger device was utilized to position a guidepin from the lateral cortex of the femur across the fracture site and into the femoral head in a good position centrally, as noted on AP lateral and oblique fluoroscopic images. This was measured. Appropriate reaming done. Appreciate length lag screw was placed from the lateral cortex of the femur into the femoral head. A small amount of the screw was noted to be protruding laterally as planned. No cartilage penetration of the femoral head noted on any x-ray. Fracture was then compressed with the outrigger device. Screw was placed seated down completely, confirmed, and then loosened one fourth turn. We then used the outrigger device to place distal cross locking screw under standard technique. This was confirmed to be of adequate length in good position on AP and lateral images. Outrigger device removed. Final set of AP and lateral proximal x-rays taken and saved. His were thoroughly irrigated. Closing by the application assistant with deep 0 Vicryl, mid layer 0 Vicryl, inverted 2-0 Vicryl, skin elsy. Puncture wounds closed with inverted 2-0 Vicryl and elsy. Xeroform 4 x 4's ABD tape applied. Patient was awoken from their anesthetic, transferred back to their own bed with the help of the application assistant and into recovery room in satisfactory condition. Patient will continue to be admitted to the hospital under the hospitalist service. This note was generated with [employer] dictation software. It may contain incorrect words, spelling, and punctuation that were not noted in checking the note before signing.
[2018-05-23] MEDS: Cefazolin 1 GM/50 ML BAG IV (18:37)
[2018-05-23] MEDS: Lactated Ringers 500 ML 999 ML IV (23:45)
[2018-05-24] VITALS (7 sets, daily range): BP systolic 125–159; BP diastolic 66–80; PULSE 80–112; RESP 18; TEMP 36.9–37.4; O2SAT 2–97
[2018-05-24] MEDS: Cefazolin 1 GM/50 ML BAG IV ×2 (01:28→06:33)
[2018-05-24] MEDS: oxyCODONE 5 MG Tablet PO ×2 (05:47→12:26)
[2018-05-24 06:43] LABS: International Normalized Ratio 1.5; Partial Thromboplast Time 38.6 Seconds (24.1-36.2); Prothrombin Time (Protime)PT. 17.8 SECONDS (11.7-14.9)
[2018-05-24] MEDS: Enoxaparin 40 MG/0.4 ML Syringe SC (06:58)
[2018-05-24 07:05] LABS: ALB/GLOB Ratio 0.6 RATIO (0.9-2.4); AST(SGOT) 34 U/L (15-37); Alanine Aminotransfer ALT/SGPT 24 U/L (16-61); Albumin, Serum 2.3 g/dL (3.2-5.0); Alkaline Phosphatase 124 U/L (45-117); Anion Gap 9 (5-15); BUN 9 mg/dL (7-18); Calcium,Total 8.2 mg/dL (8.5-10.1); Chloride 103 mmol/L (98-107); Creatinine, Serum 0.82 mg/dL (0.70-1.30); EST Glomerular Filtration Rate 102 mL/min (>60); Est Glom Filt Rate - Afr Amer 123 mL/min (>60); Estimated Creatinine Clearance 105.15 ml/min; Globulin 3.9 g/dL (2.2-4.2); Glucose 91 mg/dL (74-106); Potassium 3.8 mmol/L (3.5-5.1); Protein, Total 6.2 g/dL (6.4-8.2); Sodium Level 138 mmol/L (136-145)
--- NOTE | 2018-05-24 07:24 | PN_ITS ---
Patient Problems: Active and Suspected Problems Closed left hip fracture (Acute) Subjective: Patient was seen and examined. Feels sleepy at the time of exam. He has just been given his pain medication. Denies any fever or chills or shortness of breath. Pain is controlled Objective: Physical exam: General: Alert, Oriented x3, Cooperative, No apparent distress HEENT: Atraumatic, PERRLA, EOMI, Normocephalic, - - Legally blind Oral: Moist Mucosa Neck: Supple, No JVD, Negative Carotid Bruits Lungs: Clear to auscultation, Normal air movement Cardiovascular: Regular rate, No murmurs Abdomen: Bowel Sounds Present, Soft, Non Tender, Non-Distended, No Hepato- splenomegaly Extremities: No edema, - - Tenderness over the left hip Skin: No rashes, No breakdown Musculoskeletal: Tenderness - Over the left hip Lymphatic: No Cervical, Supraclavicular, or Inguinal Adenopathy Neurological: Cranial nerves II-XII grossly intact, Neuro grossly intact Psych/Mental Status: Normal Affect, Appropriate Vitals/I&O's: Vital Signs Temp Pulse Resp BP Pulse Ox 98.4 F 84 18 141/72 H 97 05/24/18 03:06 05/24/18 03:06 05/24/18 03:06 05/24/18 03:06 05/24/18 03:06 Oxygen Flow Rate (L/min) 2 Oxygen Delivery Method Nasal Cannula Weight: 98.883 kg Body Mass Index (BMI) 28.8 Intake and Output for Last 24 Hours 05/22/18 05/23/18 05/24/18 23:59 23:59 23:59 Intake Total 2598 / 2598 1005 / 1005 Output Total 810 / 810 150 / 150 Balance 1788 / 1788 855 / 855 Laboratory Results 05/23/18 06:37: Sodium 139, Potassium 3.3 L, Chloride 104, Carbon Dioxide 27.0, Anion Gap 8, BUN 6 L, Creatinine 0.80, Estim Creat Clear Calc 110.97, Est GFR (M DRD) Af Amer 127, Est GFR (MDRD) Non-Af 105, BUN/Creatinine Ratio 7.5 L, Glucose 99, Calcium 8.4 L, Phosphorus 2.7, Magnesium 1.8, Total Bilirubin 2.80 H, AST 47 H, ALT 30, Alkaline Phosphatase 172 H, Total Protein 6.8, Albumin 2.5 L, Gl obulin 4.3 H, Albumin/Globulin Ratio 0.6 L 05/23/18 06:37: PT 17.6 H, INR 1.4 05/23/18 06:37: WBC 12.2 H, RBC 4.15 L, Hgb 12.7 L, Hct 37.5 L, MCV 90.4, MCH 30.6, MCHC 33.9, RDW 15.5 H, RDW Differential 51.2 H, Plt Count 222, MPV 10.9, Immature Gran % (Auto) 0.300, Neut % (Auto) 65.0, Lymph % (Auto) 15.8 L, [place] % (Auto) 15.6 H, Eos % (Auto) 2.7, Baso % (Auto) 0.6, Absolute Neuts (auto) 8.0 H, Absolute Lymphs (auto) 1.93, Total Counted Not Reportable, Diff Path Review October05/24/18 05:55: Sodium 138, Potassium 3.8, Chloride 103, Carbon Dioxide 26.0, Anion Gap 9, BUN 9, Creatinine 0.82, Estim Creat Clear Calc 105.15, Est GFR (MDRD) Af Amer 123, Est GFR (MDRD) Non-Af 102, BUN/Creatinine Ratio 11.0, Gluc ose 91, Calcium 8.2 L, Total Bilirubin 2.90 H, AST 34, ALT 24, Alkaline Phosphatase 124 H, Total Protein 6.2 L, Albumin 2.3 L, Globulin 3.9, Albumin/Globulin Ratio 0.6 L 05/24/18 05:55: PT 17.8 H, INR 1.5, APTT 38.6 H Current Medications Albuterol Sulfate (Ventolin Aerosols) 2.5 mg INHALATION Q4H PRN PRN Reason: SOB/ COUGH Enoxaparin Sodium (Lovenox) 40 mg SC DAILY@0600 [facility] Last Admin: 05/24/18 06:58 Dose: 40 mg Famotidine (Pepcid) 20 mg PO BID [facility] Last Admin: 05/23/18 22:53 Dose: 20 mg Fluoxetine HCl (Prozac) 40 mg PO DAILY [facility] Last Admin: 05/23/18 09:59 Dose: Not Given Fluticasone Propionate (Flonase Nasal [place]) 2 spray NASAL DAILY [facility] Last Admin: 05/23/18 09:56 Dose: 2 spray Hydroxyzine Pamoate (Vistaril Pamoate Capsule) 25 mg PO DAILY [facility] Last Admin: 05/23/18 09:59 Dose: Not Given Losartan Potassium (Cozaar) 50 mg PO DAILY [facility] Last Admin: 05/23/18 09:55 Dose: Not Given Magnesium Hydroxide (Milk Of Magnesia) 30 ml PO DAILY PRN PRN PRN Reason: Constipation Non-Formulary Medication (Glecaprevir/Pibrentasvir [Mavyret 100-40 Mg Tablet]) 3 tab PO DAILY [facility] Ondansetron HCl (Zofran) 4 mg IV Q8H PRN PRN PRN Reason: NAUSEA Last Admin: 05/23/18 06:35 Dose: 4 mg Oxycodone HCl (Oxyir) 5 - 10 mg PO Q4H PRN PRN PRN Reason: MOD-SEVERE PAIN (4-10/10) Last Admin: 05/24/18 05:47 Dose: 10 mg Sodium Chloride () 5 - 15 ml IV UD PRN PRN Reason: SALINE FLUSH Last Admin: 05/23/18 06:35 Dose: 10 ml Tramadol HCl (Ultram) 50 mg PO Q6H PRN PRN PRN Reason: PAIN Last Admin: 05/23/18 16:29 Dose: 50 mg Medical Necessity - Tobacco Use Smoking Status: Heavy Smoker (>10/day) Tobacco Use: Non-smoker Assessment/Plan All Active Problems Closed left hip fracture (Acute) Strain of groin (Acute) 62-year-old male, legally blind, with cirrhosis secondary to chronic hepatitis C, COPD, who was in his normal state of health when he stumbled at home was going to retrieve a [employer] shipment with medications. He lost his balance and fell. He hit his head as well as his left hip. He was brought to the ED and imaging showed left nondisplaced intertrochanteric fracture. Patient is going for surgery today. 1. POD #1, s/p left hip open reduction internal fixation with intramedullary nail fixation for acute left intercostal trochanteric nondisplaced fracture, going for surgery, pain is controlled, other surgical management per orthopedics 2. Leucocytosis likely reactive, no fevers, no signs of current infection, will continue to monitor 3. Hypokalemia, resolved, labs in am 4. Microcytic microchromic anemia, likely secondary to fracture, and IV fluid effect, will continue to monitor, check iron stores 5. Hypercoagulable state secondary to underlying cirrhosis of his liver, admitting INR was 1.6, INR today is 1.4, giving vitamin K x1, INR and PTT today appears close to when he was admitted 6. Cirrhosis of the liver secondary to underlying chronic hepatitis C, Ifeoma- Chan Class B, liver enzymes appear to be improving, on Chronci Hep C treatment, Follow-up on liver function in am 7. Hypertension, controlled, continue on losartan 8. Anxiety/depression, on fluoxetine 9. DVT prophylaxis -per orthopedics, will recommend Lovenox subcu or Eliquis( indicated for Ifeoma-Chan Class B) but not Xarelto. Code Visit Inpatient E&M: 99976 Subs Hosp L2
[2018-05-24] MEDS: Magnesium Hydroxide 30 ML UDC PO (07:39)
[2018-05-24 08:08] LABS: Absolute Lymphocyte Count 1.92 X10^3/ul (0.83-4.51); Absolute Neutrophil Count 10.2 X10^3/uL (2.0-7.7); Basophil# 0.09 X10^3/uL; Basophil% 0.6 % (0-1); Differential Indicated SCAN CRITERIA MET; Eosinophil# 0.28 X10^3/uL; Eosinophils% 1.9 % (0-5); Hematocrit 33.3 % (40-54); Hemoglobin 11.2 g/dl (13.0-16.5); Lymphocyte # 1.92 X10^3/ul (4.0); Lymphocyte % 13.3 % (19-41); Mean Corp Hgb Conc 33.6 g/gl (32-36); Mean Corpuscular Hgb 30.9 pg (27.0-32.0); Mean Corpuscular Volume 91.7 fL (80-94); Mean Platelet Vol. 10.8 fl (6.2-12.0); Monocyte# 1.93 X10^3/uL; Monocyte% 13.3 % (0-10); Neutrophil # 10.19 X10^3/uL (2.7-7.7); Neutrophil % 70.6 % (47-70); POSITIVE COUNT NO; POSITIVE DIFFERENTIAL YES; POSITIVE MORPHOLOGY YES; Platelet Count 229 K/mm3 (150-450); RBC Distribution Width CV 15.2 % (11.6-14.6); RBC Distribution Width SD 51.3 fl (35.1-43.9); Red Blood Count 3.63 M/mm3 (4.6-6.2); White Blood Count 14.5 K/mm3 (4.4-11.0)
[2018-05-24 09:41] LABS: Magnesium 1.8 mg/dL (1.6-2.6)
[2018-05-24] MEDS: traMADol 50 MG Tablet PO (09:45)
[2018-05-24] MEDS: Fluticasone 0.05% 1 SPRAY NASAL.SRY 2 SPRAY NASAL (09:45)
[2018-05-24] MEDS: Glycerin/Hypromellose/PEG400 15 ml Bottle 2 DRP EACH EYE (09:46)
[2018-05-24] MEDS: hydrOXYzine PAM 25 MG Capsule PO (09:46)
[2018-05-24] MEDS: Losartan Potassium 50 MG Tablet PO (09:47)
[2018-05-24] MEDS: FLUoxetine 20 MG Capsule 40 MG PO (09:47)
[2018-05-24] MEDS: Famotidine 20 MG Tablet PO ×2 (09:47→22:44)
[2018-05-24] MEDS: 0.9% NaCl Peripheral Flush Adult/Peds IV ×3 (10:19→13:30)
[2018-05-24 10:58] LABS: Ferritin 429 ng/mL (26-388); Iron 54 ug/dL (65-175); Iron Binding Capacity,Total 185 ug/dL (250-450); PERCENT IRON SATURATION 29.2 % (15.0-55.0)
--- NOTE | 2018-05-24 11:16 | PN.ORTHO_ITS ---
Patient Problems: Active and Suspected Problems Closed left hip fracture (Acute) Subjective: Patient is postoperative day #1 from left hip internal fixation for fracture. He denies severe pain. He is planning on discharge to [facility]. Denies chest pain or shortness of breath. Patient does admit to being a smoker. We discussed the importance of smoking cessation. Objective: Left hip bandages on clean and dry. No calf pain or swelling bilaterally. Negative Homans sign. SCDs are on. DIEGO hose are on. Good active toes and ankles. Clinically legs well aligned. No severe left hip pain with gentle range of motion. Legs are neurovascular intact. Laboratory work and vital signs reviewed. Note from hospitalist reviewed. DVT prophylaxis had been discussed with hospitalist. - Physical Exam Vital Signs Temp Pulse Resp BP Pulse Ox 99.4 F H 83 18 139/73 H 97 05/24/18 09:41 05/24/18 09:41 05/24/18 09:41 05/24/18 09:41 05/24/18 09:41 Oxygen Flow Rate (L/min) 1 Oxygen Delivery Method Nasal Cannula Weight: 98.883 kg Body Mass Index (BMI) 28.8 Intake and Output for Last 24 Hours 05/22/18 05/23/18 05/24/18 23:59 23:59 23:59 Intake Total 2598 / 2598 1005 / 1005 Output Total 810 / 810 150 / 150 Balance 1788 / 1788 855 / 855 Laboratory Tests Past 24 Hrs 05/24/18 05/24/18 05/24/18 05:55 05:55 05:55 WBC 14.5 H RBC 3.63 L Hgb 11.2 L Hct 33.3 L MCV 91.7 MCH 30.9 MCHC 33.6 RDW 15.2 H RDW Differential 51.3 H Plt Count 229 MPV 10.8 Immature Gran % (Auto) 0.300 Neut % (Auto) 70.6 H Lymph % (Auto) 13.3 L [place] % (Auto) 13.3 H Eos % (Auto) 1.9 Baso % (Auto) 0.6 Absolute Neuts (auto) 10.2 H Absolute Lymphs (auto) 1.92 Total Counted Pending Diff Path Review October foll PT 17.8 H INR 1.5 APTT 38.6 H Sodium 138 Potassium 3.8 Chloride 103 Carbon Dioxide 26.0 Anion Gap 9 BUN 9 Creatinine 0.82 Estim Creat Clear Calc 105.15 Est GFR (MDRD) Af Amer 123 Est GFR (MDRD) Non-Af 102 BUN/Creatinine Ratio 11.0 Glucose 91 Calcium 8.2 L Magnesium Iron TIBC Iron Saturation Ferritin Total Bilirubin 2.90 H AST 34 ALT 24 Alkaline Phosphatase 124 H Total Protein 6.2 L Albumin 2.3 L Globulin 3.9 Albumin/Globulin Ratio 0.6 L 05/24/18 05/24/18 05:55 10:00 WBC RBC Hgb Hct MCV MCH MCHC RDW RDW Differential Plt Count MPV Immature Gran % (Auto) Neut % (Auto) Lymph % (Auto) [place] % (Auto) Eos % (Auto) Baso % (Auto) Absolute Neuts (auto) Absolute Lymphs (auto) Total Counted Diff Path Review PT INR APTT Sodium Potassium Chloride Carbon Dioxide Anion Gap BUN Creatinine Estim Creat Clear Calc Est GFR (MDRD) Af Amer Est GFR (MDRD) Non-Af BUN/Creatinine Ratio Glucose Calcium Magnesium 1.8 Iron 54 L TIBC 185 L Iron Saturation 29.2 Ferritin 429 H Total Bilirubin AST ALT Alkaline Phosphatase Total Protein Albumin Globulin Albumin/Globulin Ratio Medical Necessity - Tobacco Use Smoking Status: Heavy Smoker (>10/day) Tobacco Use: Non-smoker Assessment/Plan All Active Problems Closed left hip fracture (Acute) Strain of groin (Acute) Postoperative day #1 left hip internal fixation for fracture. Continue with Lovenox for DVT prevention. DIEGO hose and SCDs. Recommended incentive spirometer use. Recommended upright position. He can be weightbearing as tolerated. Okay for full range of motion left hip as tolerated. Patient can be discharged to [facility] when arrangements made. Follow-up with orthopedics in 10-12 days.
[2018-05-24] MEDS: PIBRENTASVIR PO (12:02)
[2018-05-24] MEDS: GLECAPREVIR PO (12:02)
--- NOTE | 2018-05-24 12:59 | NURSING ---
Nurse was in room 313 when she hard a loud clatter of dishes, and pt in 312 yelling. Pt was had pushed the overhead table to doorway and was yelling get me out of here, while he was attached to scds, and contreras intact. Iv was pulled out. Many staff members responded when the dishes clattered to the floor. However, he raised his fist and demanded for everyone to get out of the way and the police to be called. This nurse tried to talk him down but would not listen. Dr. Bridges responded and talked him down, by stating no yelling is allowed. Pt was cooperative after a few minutes and security was present also. He was directed to the recliner safely. Charge nurse called Chioma osorio S.O. and he said he had a panic attach. Pt requested for nurse to stay with him, states he trusts me. He has been in custodial in his wild years for 12 years. He is worried he will . Assured him we are keeping him safe, we are treating him because he had a hip fx at home. His urine output is low and will start iv flds to treat this. He again said he doesn't want to . Nurse said, there is no reason to think he is going to , we are doing what we can to treat what needs to be treated. Assured that Naman would be in the room with him.
[2018-05-24] MEDS: 0.9% Normal Saline 1,000 ML 75 ML IV (13:29)
[2018-05-25 02:56] VITALS: BP 152/64; PULSE 93; RESP 18; TEMP 36.7; O2SAT 96
[2018-05-25] MEDS: 0.9% Normal Saline 1,000 ML 75 ML IV (05:18)
[2018-05-25] MEDS: Enoxaparin 40 MG/0.4 ML Syringe SC (05:53)
[2018-05-25 06:46] LABS: International Normalized Ratio 1.4; Prothrombin Time (Protime)PT. 17.6 SECONDS (11.7-14.9)
[2018-05-25 06:47] LABS: Partial Thromboplast Time 39.1 Seconds (24.1-36.2)
[2018-05-25 06:52] LABS: ALB/GLOB Ratio 0.6 RATIO (0.9-2.4); AST(SGOT) 32 U/L (15-37); Alanine Aminotransfer ALT/SGPT 22 U/L (16-61); Albumin, Serum 2.2 g/dL (3.2-5.0); Alkaline Phosphatase 118 U/L (45-117); Anion Gap 9 (5-15); BUN 11 mg/dL (7-18); BUN/Creat Ratio 16.1 RATIO (10-20); Chloride 102 mmol/L (98-107); Creatinine, Serum 0.68 mg/dL (0.70-1.30); EST Glomerular Filtration Rate 126 mL/min (>60); Est Glom Filt Rate - Afr Amer 152 mL/min (>60); Globulin 3.7 g/dL (2.2-4.2); Glucose 96 mg/dL (74-106); Potassium 4.3 mmol/L (3.5-5.1); Protein, Total 5.9 g/dL (6.4-8.2); Sodium Level 138 mmol/L (136-145)
[2018-05-25] MEDS: GLECAPREVIR PO (08:52)
[2018-05-25] MEDS: Glycerin/Hypromellose/PEG400 15 ml Bottle 2 DRP EACH EYE (08:52)
[2018-05-25] MEDS: PIBRENTASVIR PO (08:52)
[2018-05-25] MEDS: Famotidine 20 MG Tablet PO ×2 (08:53→21:22)
[2018-05-25] MEDS: hydrOXYzine PAM 25 MG Capsule PO (08:53)
[2018-05-25] MEDS: FLUoxetine 20 MG Capsule 40 MG PO (08:53)
[2018-05-25] MEDS: Losartan Potassium 50 MG Tablet PO (08:53)
[2018-05-25] MEDS: Fluticasone 0.05% 1 SPRAY NASAL.SRY 2 SPRAY NASAL (08:54)
[2018-05-25 08:55] VITALS: BP 132/68; PULSE 99; RESP 18; TEMP 37.2; O2SAT 96
[2018-05-25] MEDS: traMADol 50 MG Tablet PO (08:56)
--- NOTE | 2018-05-25 09:25 | PCM.PN.HOSP ---
Patient Problems: Active and Suspected Problems Closed left hip fracture (Acute) Subjective: Patient is a 62-year-old gentleman with multiple comorbidities including cirrhosis of the liver secondary to chronic hep C, COPD, who is legally blind who stumbled and fell injuring his left hip imaging studies obtained in the emergency department demonstrated nondisplaced intratrochanteric fracture involving the left hip. Admitted to regular nursing floor consultation was placed to orthopedic surgery patient underwent ORIF Objective: GENERAL: delirious HEENT: Atraumatic; moist oral mucosa EYES; right corneal opacity NECK; supple, normal thyroid, RESPIRATORY: Diminished to auscultation bilaterally, CARDIOVASCULAR: Regular S1 S2, GI: soft, non-tender, normoactive bowel sounds, : No Renal angle tenderness; EXTREMITIES: No edema, no clubbing, no cyanosis. MUSCULOSKELETAL: No muscle waisting NEURO: Awake; no lateralizing signs. SKIN: No Rash PSYCH; Normal affect Vitals/I&O's: Vital Signs Temp Pulse Resp BP Pulse Ox 98.1 F 93 18 152/64 H 96 05/25/18 02:56 05/25/18 02:56 05/25/18 02:56 05/25/18 02:56 05/25/18 02:56 Oxygen Flow Rate (L/min) 1 Oxygen Delivery Method Nasal Cannula Weight: 98.883 kg Body Mass Index (BMI) 28.8 Intake and Output for Last 24 Hours 05/23/18 05/24/18 05/25/18 23:59 23:59 23:59 Intake Total 2598 / 2598 2363 / 2363 997 / 997 Output Total 810 / 810 530 / 530 275 / 275 Balance 1788 / 1788 1833 / 1833 722 / 722 Laboratory Results 05/24/18 05:55: Total Counted Not Reportable 05/24/18 05:55: Magnesium 1.8 05/24/18 10:00: Iron 54 L, TIBC 185 L, Iron Saturation 29.2, Ferritin 429 H 05/25/18 05:58: PT 17.6 H, INR 1.4, APTT 39.1 H 05/25/18 05:58: Sodium 138, Potassium 4.3, Chloride 102, Carbon Dioxide 27.0, Anion Gap 9, BUN 11, Creatinine 0.68 L, Estim Creat Clear Calc 126.80, Est GFR (MDRD) Af Amer 152, Est GFR (MDRD) Non-Af 126, BUN/Creatinine Ratio 16.1, Glucose 96, Calcium 8.0 L, Total Bilirubin 2.90 H, AST 32, ALT 22, Alkaline Phosphatase 118 H, Total Protein 5.9 L, Albumin 2.2 L, Globulin 3.7, Albumin/Globulin Ratio 0.6 L Current Medications Albuterol Sulfate (Ventolin Aerosols) 2.5 mg INHALATION Q4H PRN PRN Reason: SOB/ COUGH Enoxaparin Sodium (Lovenox) 40 mg SC DAILY@0600 [facility] Last Admin: 05/25/18 05:53 Dose: 40 mg Famotidine (Pepcid) 20 mg PO BID [facility] Last Admin: 05/25/18 08:53 Dose: 20 mg Fluoxetine HCl (Prozac) 40 mg PO DAILY [facility] Last Admin: 05/25/18 08:53 Dose: 40 mg Fluticasone Propionate (Flonase Nasal [place]) 2 spray NASAL DAILY [facility] Last Admin: 05/25/18 08:54 Dose: 2 spray Hydroxyzine Pamoate (Vistaril Pamoate Capsule) 25 mg PO DAILY [facility] Last Admin: 05/25/18 08:53 Dose: 25 mg Sodium Chloride () 1,000 mls @ 75 mls/hr IV .[id number] [facility] Stop: 05/25/18 17:49 Last Admin: 05/25/18 05:18 Dose: 75 mls/hr Losartan Potassium (Cozaar) 50 mg PO DAILY [facility] Last Admin: 05/25/18 08:53 Dose: 50 mg Magnesium Hydroxide (Milk Of Magnesia) 30 ml PO DAILY PRN PRN PRN Reason: Constipation Last Admin: 05/24/18 07:39 Dose: 30 ml Non-Formulary Medication (Glecaprevir/Pibrentasvir [Mavyret 100-40 Mg Tablet]) [facility] Last Admin: 05/25/18 08:52 Dose: 3 tab Ondansetron HCl (Zofran) 4 mg IV Q8H PRN PRN PRN Reason: NAUSEA Last Admin: 05/23/18 06:35 Dose: 4 mg Oxycodone HCl (Oxyir) 5 - 10 mg PO Q4H PRN PRN PRN Reason: MOD-SEVERE PAIN (4-10/10) Last Admin: 05/24/18 12:26 Dose: 5 mg Sodium Chloride () 5 - 15 ml IV UD PRN PRN Reason: SALINE FLUSH Last Admin: 05/24/18 13:30 Dose: 10 ml Tramadol HCl (Ultram) 50 mg PO Q6H PRN PRN PRN Reason: PAIN Last Admin: 05/25/18 08:56 Dose: 50 mg Medical Necessity - Tobacco Use Smoking Status: Heavy Smoker (>10/day) Tobacco Use: Non-smoker Assessment/Plan All Active Problems Closed left hip fracture (Acute) Strain of groin (Acute) Patient is a 62-year-old gentleman with multiple comorbidities including cirrhosis of the liver secondary to chronic hep C, COPD, who is legally blind who stumbled and fell injuring his left hip imaging studies obtained in the emergency department demonstrated nondisplaced intratrochanteric fracture involving the left hip. Admitted to regular nursing floor consultation was placed to orthopedic surgery patient underwent ORIF 1. Acute mechanical fall; imaging studies on admission demonstrated studies obtained in the emergency department demonstrated nondisplaced intratrochanteric fracture involving the left hip. Admitted to regular nursing floor consultation was placed to orthopedic surgery Dr. Bryan who did perform Left hip open reduction internal fixation, intramedullary nail fixation, locked 118 2. Cirrhosis of the liver secondary to chronic hep C 3. Acute encephalopathy secondary to hepatic encephalopathy from patient's cirrhosis of the liver; did order ammonia level start patient given lactulose 4. Coagulopathy secondary to patient underlying cirrhosis of the liver will continue to monitor vitamin K not effective in patient with Coagulopathy secondary to cirrhosis of the liver patient currently not bleeding 5. Hypertension-blood pressure controlled, home medications continued with dose adjustment as needed 6. Depression with anxiety 7. DVT prophylaxis SC Lovenox 8. COPD currently not in exacerbation 9. DVT prophylaxis SC Lovenox Clinical Impression(s) from Imaging Studies Pelvis X-Ray 05/22/18 12:37 IMPRESSION: Normal x-ray examination of the pelvis. Electronically Signed: Alan Silveira MD at 13:47 EST Tel [phone], Service support , Femur X-Ray 05/22/18 13:20 IMPRESSION: Normal x-ray examination of the femur. Electronically Signed: Alan Silveira MD at 13:48 EST Tel [phone], Service support , ADDENDUM: 05/22/18 1426 Chest X-Ray 05/22/18 13:51 IMPRESSION: Mild increased markings at the left lung base suggestive of atelectasis with blunting of the left costophrenic angle. Electronically Signed: Alan Silveira MD at 14:32 EST Tel [phone], Service support , Pelvis CT 05/22/18 14:41 IMPRESSION: Nondisplaced left intertrochanteric fracture. Electronically Signed: Alan Silveira MD at 15:48 EST Tel [phone], Service support , Brain CT 05/22/18 18:42 IMPRESSION: No acute intracranial abnormality. Chronic ischemic and atrophic changes. Postsurgical changes noted in the left eye. High density within the left lobe which may represent blood, but is of uncertain chronicity. Correlation with the patient's surgical history is recommended. Electronically Signed: Ranjit Teague, at 19:54 EST Tel , Service support , Hip/Pelvis X-Ray 05/23/18 12:25 IMPRESSION: Limited views of the left hip were obtained intraoperatively during fracture fixation. Electronically Signed: Sheridan Schaefer MD at 0:56 EST Tel Direct: [phone], Service support , Code Visit Inpatient E&M: 69193 Subs Hosp L3
--- NOTE | 2018-05-25 09:30 | NURSING ---
Bed exit alarming, this nurse and Michael GENERATION ENGINEERING TECHNOLOGIST into room. Pt sitting up on edge of bed, looking for Chioma. Significant other Chioma returned to room after speaking to primary RN Antonina. Pt stating that he needed to leave and get some things taken care of. Patient unable to state what he needed, but asked to speak to someone in charge and the worldwide chief creative officer. Pt informed that I was the charge nurse today and that we were here to try and help him. Pt reoriented to time, place and events. Pt stated that he gets paranoid sometimes. Dr. Villegas in room, states that he will order ammonia level as pt has history of cirrhosis. Pt adamant that he is not going to have surgery or get any blood. Pt assured that his surgery was completed and that he does not have a blood transfusion ordered. Pt assisted back into bed, bed exit applied and pt appears more calm after talking to this nurse. Significant other remains at bedside.
[2018-05-25] MEDS: Lactulose 20 GM/30 ML UDC PO (10:36)
[2018-05-25 14:44] VITALS: O2SAT 96
[2018-05-25 14:50] VITALS: BP 130/77; PULSE 107; RESP 18; TEMP 37.4; O2SAT 96
--- NOTE | 2018-05-25 16:00 | CASEMGMT ---
Social Work Note CHERYL met with pt and pt's significant other Jannet present in room. Pt has eyes shut during conversation. SW introduced self and role at [facility]. SW informed pt and Jannet that per PT, pt is currently moderate assist of two and SNF is being recommended. Jannet states she is unsure of any nursing homes in the area. CHERYL provided Jannet with list of SNF in network with pt's insurance and encouraged Jannet to review list tonight and have three different options for SNF for pt. Jannet states understanding. SW to meet with Jannet tomorrow to get choices for SNF. Plan: SNF pending acceptance and pre-cert Sara Espinal ADMINISTRATIVE COORDINATOR, FILTERATION OPERATOR
[2018-05-25 21:13] VITALS: BP 133/76; PULSE 92; RESP 16; TEMP 36.9; O2SAT 94
[2018-05-25] MEDS: Lactulose 20 GM/30 ML UDC 10 GM PO (21:23)
[2018-05-26 03:19] VITALS: BP 133/83; PULSE 92; RESP 14; TEMP 36.7; O2SAT 97
[2018-05-26 06:09] LABS: International Normalized Ratio 1.4; Prothrombin Time (Protime)PT. 17.5 SECONDS (11.7-14.9)
[2018-05-26 06:11] LABS: Absolute Lymphocyte Count 1.36 X10^3/ul (0.83-4.51); Absolute Neutrophil Count 8.3 X10^3/uL (2.0-7.7); Basophil# 0.04 X10^3/uL; Basophil% 0.3 % (0-1); Eosinophils% 1.6 % (0-5); Hematocrit 28.6 % (40-54); Hemoglobin 9.7 g/dl (13.0-16.5); Lymphocyte # 1.36 X10^3/ul (4.0); Mean Corp Hgb Conc 33.9 g/gl (32-36); Mean Corpuscular Hgb 30.9 pg (27.0-32.0); Mean Corpuscular Volume 91.1 fL (80-94); Mean Platelet Vol. 11.3 fl (6.2-12.0); Monocyte# 2.46 X10^3/uL; Monocyte% 19.8 % (0-10); Neutrophil # 8.31 X10^3/uL (2.7-7.7); Neutrophil % 66.9 % (47-70); Partial Thromboplast Time 38.4 Seconds (24.1-36.2); Platelet Count 265 K/mm3 (150-450); RBC Distribution Width CV 15.1 % (11.6-14.6); RBC Distribution Width SD 48.4 fl (35.1-43.9); Red Blood Count 3.14 M/mm3 (4.6-6.2); White Blood Count 12.4 K/mm3 (4.4-11.0)
[2018-05-26 06:15] LABS: ALB/GLOB Ratio 0.6 RATIO (0.9-2.4); AST(SGOT) 30 U/L (15-37); Alanine Aminotransfer ALT/SGPT 19 U/L (16-61); Albumin, Serum 2.2 g/dL (3.2-5.0); Alkaline Phosphatase 104 U/L (45-117); Anion Gap 7 (5-15); BUN 11 mg/dL (7-18); BUN/Creat Ratio 19.6 RATIO (10-20); Calcium,Total 7.8 mg/dL (8.5-10.1); Chloride 105 mmol/L (98-107); Creatinine, Serum 0.56 mg/dL (0.70-1.30); EST Glomerular Filtration Rate 158 mL/min (>60); Est Glom Filt Rate - Afr Amer 191 mL/min (>60); Estimated Creatinine Clearance 153.97 ml/min; Globulin 3.5 g/dL (2.2-4.2); Glucose 100 mg/dL (74-106); Potassium 3.8 mmol/L (3.5-5.1); Protein, Total 5.7 g/dL (6.4-8.2); Sodium Level 137 mmol/L (136-145)
[2018-05-26 06:18] LABS: Differential Indicated SCAN CRITERIA MET; POSITIVE COUNT NO; POSITIVE DIFFERENTIAL YES; POSITIVE MORPHOLOGY NO
[2018-05-26] MEDS: Enoxaparin 40 MG/0.4 ML Syringe SC (06:32)
[2018-05-26 07:04] VITALS: O2SAT 97
[2018-05-26 07:13] LABS: Hypochromasia 1+
[2018-05-26 09:19] VITALS: BP 138/68; PULSE 102; RESP 16; TEMP 37.6; O2SAT 94
--- NOTE | 2018-05-26 09:38 | PN_ITS ---
Patient Problems: Active and Suspected Problems Closed left hip fracture (Acute) Subjective: Since seen less agitated compared to the day prior. Patient was given lactulose for elevated ammonia had a large bowel movement on the morning of 05/26/2018 Objective: GENERAL: Cooperative HEENT: Atraumatic; moist oral mucosa EYES; right corneal opacity NECK; supple, normal thyroid, RESPIRATORY: Diminished to auscultation bilaterally, CARDIOVASCULAR: Regular S1 S2, GI: soft, non-tender, normoactive bowel sounds, : No Renal angle tenderness; EXTREMITIES: No edema, no clubbing, no cyanosis. MUSCULOSKELETAL: No muscle waisting NEURO: Awake; no lateralizing signs. SKIN: No Rash PSYCH; Normal affect Vitals/I&O's: Vital Signs Temp Pulse Resp BP Pulse Ox 98.0 F 92 14 133/83 H 97 05/26/18 03:19 05/26/18 03:19 05/26/18 03:19 05/26/18 03:19 05/26/18 07:04 Oxygen Flow Rate (L/min) 1 Oxygen Delivery Method Room Air Weight: 98.883 kg Body Mass Index (BMI) 28.8 Intake and Output for Last 24 Hours 05/24/18 05/25/18 05/26/18 23:59 23:59 23:59 Intake Total 2363 / 2363 2624.7 / 2624.7 100 / 100 Output Total 530 / 530 620 / 620 Balance 1833 / 1833 2004.7 / 2004.7 100 / 100 Laboratory Results 05/25/18 09:44: Ammonia 34.0 H 05/26/18 05:22: PT 17.5 H, INR 1.4, APTT 38.4 H 05/26/18 05:22: Sodium 137, Potassium 3.8, Chloride 105, Carbon Dioxide 25.0, Anion Gap 7, BUN 11, Creatinine 0.56 L, Estim Creat Clear Calc 153.97, Est GFR (MDRD) Af Amer 191, Est GFR (MDRD) Non-Af 158, BUN/Creatinine Ratio 19.6, Glucose 100, Calcium 7.8 L, Total Bilirubin 3.10 H, AST 30, ALT 19, Alkaline Phosphatase 104, Total Protein 5.7 L, Albumin 2.2 L, Globulin 3.5, Albumin/Globulin Ratio 0.6 L 05/26/18 05:22: WBC 12.4 H, RBC 3.14 L, Hgb 9.7 L, Hct 28.6 L, MCV 91.1, MCH 30.9, MCHC 33.9, RDW 15.1 H, RDW Differential 48.4 H, Plt Count 265, MPV 11.3, Immature Gran % (Auto) 0.400, Neut % (Auto) 66.9, Lymph % (Auto) 11.0 L, [place] % (Auto) 19.8 H, Eos % (Auto) 1.6, Baso % (Auto) 0.3, Absolute Neuts (auto) 8.3 H, Absolute Lymphs (auto) 1.36, Total Counted Not Reportable, Hypochromasia 1+ Current Medications Albuterol Sulfate (Ventolin Aerosols) 2.5 mg INHALATION Q4H PRN PRN Reason: SOB/ COUGH Enoxaparin Sodium (Lovenox) 40 mg SC DAILY@0600 [facility] Last Admin: 05/26/18 06:32 Dose: 40 mg Famotidine (Pepcid) 20 mg PO BID [facility] Last Admin: 05/25/18 21:22 Dose: 20 mg Fluoxetine HCl (Prozac) 40 mg PO DAILY [facility] Last Admin: 05/25/18 08:53 Dose: 40 mg Fluticasone Propionate (Flonase Nasal [place]) 2 spray NASAL DAILY [facility] Last Admin: 05/25/18 08:54 Dose: 2 spray Hydroxyzine Pamoate (Vistaril Pamoate Capsule) 25 mg PO DAILY [facility] Last Admin: 05/25/18 08:53 Dose: 25 mg Lactulose (Chronulac, Cephulac) 10 gm PO BID [facility] Last Admin: 05/25/18 21:23 Dose: 10 gm Losartan Potassium (Cozaar) 50 mg PO DAILY [facility] Last Admin: 05/25/18 08:53 Dose: 50 mg Magnesium Hydroxide (Milk Of Magnesia) 30 ml PO DAILY PRN PRN PRN Reason: Constipation Last Admin: 05/24/18 07:39 Dose: 30 ml Non-Formulary Medication (Glecaprevir/Pibrentasvir [Mavyret 100-40 Mg Tablet]) 3 tab PO DAILYCM [facility] Last Admin: 05/25/18 08:52 Dose: 3 tab Ondansetron HCl (Zofran) 4 mg IV Q8H PRN PRN PRN Reason: NAUSEA Last Admin: 05/23/18 06:35 Dose: 4 mg Oxycodone HCl (Oxyir) 5 - 10 mg PO Q4H PRN PRN PRN Reason: MOD-SEVERE PAIN (4-10/10) Last Admin: 05/24/18 12:26 Dose: 5 mg Sodium Chloride () 5 - 15 ml IV UD PRN PRN Reason: SALINE FLUSH Last Admin: 05/24/18 13:30 Dose: 10 ml Tramadol HCl (Ultram) 50 mg PO Q6H PRN PRN PRN Reason: PAIN Last Admin: 05/25/18 08:56 Dose: 50 mg Medical Necessity - Tobacco Use Smoking Status: Heavy Smoker (>10/day) Tobacco Use: Non-smoker Assessment/Plan All Active Problems Closed left hip fracture (Acute) Strain of groin (Acute) Patient is a 62-year-old gentleman with multiple comorbidities including cirrhosis of the liver secondary to chronic hep C, COPD, who is legally blind who stumbled and fell injuring his left hip imaging studies obtained in the emergency department demonstrated nondisplaced intratrochanteric fracture involving the left hip. Admitted to regular nursing floor consultation was placed to orthopedic surgery patient underwent ORIF 1. Acute mechanical fall; imaging studies on admission demonstrated studies ob tained on admission demonstrated nondisplaced intratrochanteric fracture involving the left hip. Admitted to regular nursing floor consultation was placed to orthopedic surgery Dr. Bryan who did perform Left hip open reduction internal fixation, intramedullary nail fixation on 05/23/2018. Plan is for patient to be transferred to a penitentiary facility after obtaining insurance precertification. 2. Cirrhosis of the liver secondary to chronic hep C 3. Acute encephalopathy secondary to hepatic encephalopathy from patient's cirrhosis of the liver; did order ammonia level start patient given lactulose patient's ammonia level was slightly elevated had a good response to lactulose that was administered the day prior (05/25/2018). 4. Coagulopathy secondary to patient underlying cirrhosis of the liver will continue to monitor vitamin K not effective in patient with Coagulopathy secondary to cirrhosis of the liver patient currently not bleeding 5. Hypertension-blood pressure controlled, home medications continued with dose adjustment as needed 6. Depression with anxiety 7. DVT prophylaxis SC Lovenox 8. COPD currently not in exacerbation 9. DVT prophylaxis SC Lovenox Code Visit Inpatient E&M: 19585 Subs Hosp L2
[2018-05-26] MEDS: Glycerin/Hypromellose/PEG400 15 ml Bottle 2 DRP EACH EYE (10:51)
[2018-05-26] MEDS: Fluticasone 0.05% 1 SPRAY NASAL.SRY 2 SPRAY NASAL (10:52)
[2018-05-26] MEDS: Lactulose 20 GM/30 ML UDC 10 GM PO (10:52)
[2018-05-26] MEDS: hydrOXYzine PAM 25 MG Capsule PO (10:53)
[2018-05-26] MEDS: Famotidine 20 MG Tablet PO ×2 (10:53→21:16)
[2018-05-26] MEDS: Losartan Potassium 50 MG Tablet PO (10:53)
[2018-05-26] MEDS: FLUoxetine 20 MG Capsule 40 MG PO (10:53)
[2018-05-26] MEDS: PIBRENTASVIR PO (10:56)
[2018-05-26] MEDS: GLECAPREVIR PO (10:56)
[2018-05-26 14:43] LABS: Pathologist Review Reviewed
[2018-05-26 14:47] LABS: Pathologist Review Reviewed
[2018-05-26 15:19] VITALS: BP 159/69; PULSE 106; RESP 16; TEMP 37.5; O2SAT 98
--- NOTE | 2018-05-26 16:16 | CASEMGMT ---
Social Work Note RN provided worker with list of SNF that pt's significant other had chosen for pt to go to. Per RN, pt's significant other has no preference which SNF pt goes to but did nelson either [facility], [facility], or [facility] as choices for pt. faxed referral to Arianne at [facility]. Per Arianne she is able to accept pt and will submit for pre-cert. Plan: [facility] pending pre-cert Sara Espinal METAL BED ASSEMBLER, GREEN CHAIN PULLER
[2018-05-26 19:49] VITALS: BP 131/61; PULSE 96; RESP 16; TEMP 37.1; O2SAT 95
[2018-05-27 03:53] VITALS: BP 154/70; PULSE 91; RESP 16; TEMP 37.1; O2SAT 96
[2018-05-27] MEDS: Enoxaparin 40 MG/0.4 ML Syringe SC (06:12)
[2018-05-27 06:16] LABS: Absolute Neutrophil Count 6.6 X10^3/uL (2.0-7.7); Basophil# 0.07 X10^3/uL; Basophil% 0.7 % (0-1); Eosinophil# 0.28 X10^3/uL; Eosinophils% 2.7 % (0-5); Hematocrit 28.3 % (40-54); Hemoglobin 9.7 g/dl (13.0-16.5); Lymphocyte % 11.5 % (19-41); Mean Corp Hgb Conc 34.3 g/gl (32-36); Mean Corpuscular Hgb 31.2 pg (27.0-32.0); Mean Platelet Vol. 10.8 fl (6.2-12.0); Monocyte# 2.24 X10^3/uL; Monocyte% 21.4 % (0-10); Neutrophil # 6.63 X10^3/uL (2.7-7.7); Neutrophil % 63.4 % (47-70); Platelet Count 262 K/mm3 (150-450); RBC Distribution Width CV 14.9 % (11.6-14.6); RBC Distribution Width SD 47.6 fl (35.1-43.9); Red Blood Count 3.11 M/mm3 (4.6-6.2); White Blood Count 10.5 K/mm3 (4.4-11.0)
[2018-05-27 06:31] LABS: POSITIVE COUNT NO; POSITIVE MORPHOLOGY NO
[2018-05-27 07:18] LABS: Differential Indicated SCAN CRITERIA MET; POSITIVE DIFFERENTIAL YES
[2018-05-27] MEDS: PIBRENTASVIR PO (09:08)
[2018-05-27] MEDS: GLECAPREVIR PO (09:08)
[2018-05-27] MEDS: Lactulose 20 GM/30 ML UDC 10 GM PO (09:09)
[2018-05-27] MEDS: Fluticasone 0.05% 1 SPRAY NASAL.SRY 2 SPRAY NASAL (09:09)
[2018-05-27] MEDS: Glycerin/Hypromellose/PEG400 15 ml Bottle 2 DRP EACH EYE (09:10)
[2018-05-27] MEDS: Losartan Potassium 50 MG Tablet PO (09:10)
[2018-05-27] MEDS: Famotidine 20 MG Tablet PO (09:11)
[2018-05-27] MEDS: hydrOXYzine PAM 25 MG Capsule PO (09:11)
[2018-05-27] MEDS: FLUoxetine 20 MG Capsule 40 MG PO (09:11)
--- NOTE | 2018-05-27 09:17 | PCM.TXEXTCAR ---
- Diet 05/23/18 13:39 Diet: Regular Diet Is pt able to select menu?: Yes Diet Comments: low sodium diet - Routine Orders/Code Status Code Status: Full Code - Wound(s) RLE Wound Type: Abrasion LEFT HAND Wound Type: HEALING SKIN TEAR, SCABBED LEFT HIP Wound Type: Surgical Incision Dressing Change: Dry Sterile Dressing - Therapies Weight Bearing: Weight bearing as tolerated Physical Therapy: Eval and Treat Occupational Therapy: Eval and Treat - Allergies/Procedures Done in Hospital Allergies/Adverse Reactions: Allergies ketorolac [From Toradol] Allergy (Verified 05/22/18 12:05) Hives morphine Adverse Reaction (Verified 05/22/18 12:05) Vomiting - Type of Care/Length of Stay Estimated LOS: Convalescent Care Less Than 30 days Type of Care Needed: Skilled Rehab Potential: Good Prognosis: Good - Additional Orders/Day of Discharge Day of Discharge: 05/27/18 - Dietary and Speech Recommendations Dietitian Recommendations/Changes: As medically able, rec SANDI to Regular low ROGE. Rec Ensure Enlive 120 cc 4x/day at [facility] when po diet resumes. - Follow Up Care Primary Care Physician: Ric Coronado PA [Primary Care Provider] - Please follow up with your Primary Care Physician in: in 1-2 weeks Please Follow Up With: Timmy Bryan MD When: in 2-3 weeks
--- NOTE | 2018-05-27 09:24 | PN_ITS ---
Patient Problems: Active and Suspected Problems Closed left hip fracture (Acute) Subjective: Patient seen affect more appropriate plan is for patient to be transferred to a halfway facility once insurance precertification is obtained. Objective: GENERAL: Cooperative HEENT: Atraumatic; moist oral mucosa EYES; right corneal opacity NECK; supple, normal thyroid, RESPIRATORY: Diminished to auscultation bilaterally, CARDIOVASCULAR: Regular S1 S2, GI: soft, non-tender, normoactive bowel sounds, : No Renal angle tenderness; EXTREMITIES: No edema, no clubbing, no cyanosis. MUSCULOSKELETAL: No muscle waisting NEURO: Awake; no lateralizing signs. SKIN: No Rash PSYCH; Normal affect Vitals/I&O's: Vital Signs Temp Pulse Resp BP Pulse Ox 98.8 F 91 16 154/70 H 96 05/27/18 03:53 05/27/18 03:53 05/27/18 03:53 05/27/18 03:53 05/27/18 03:53 Oxygen Flow Rate (L/min) 1 Oxygen Delivery Method Room Air Weight: 98.883 kg Body Mass Index (BMI) 28.8 Intake and Output for Last 24 Hours 05/25/18 05/26/18 05/27/18 23:59 23:59 23:59 Intake Total 2624.7 / 2624.7 100 / 100 200 / 200 Output Total 620 / 620 Balance 2003.7 / 2004.7 100 / 100 200 / 200 Laboratory Results 05/23/18 06:37: Diff Path Review Reviewed 05/24/18 05:55: Diff Path Review Reviewed 05/27/18 05:36: WBC 10.5, RBC 3.11 L, Hgb 9.7 L, Hct 28.3 L, MCV 91.0, MCH 31.2, MCHC 34.3, RDW 14.9 H, RDW Differential 47.6 H, Plt Count 262, MPV 10.8, Imm ature Gran % (Auto) 0.300, Neut % (Auto) 63.4, Lymph % (Auto) 11.5 L, [place] % (Auto) 21.4 H, Eos % (Auto) 2.7, Baso % (Auto) 0.7, Absolute Neuts (auto) 6.6, Absolute Lymphs (auto) 1.20, Total Counted Not Reportable Current Medications Albuterol Sulfate (Ventolin Aerosols) 2.5 mg INHALATION Q4H PRN PRN Reason: SOB/ COUGH Enoxaparin Sodium (Lovenox) 40 mg SC DAILY@0600 [facility] Last Admin: 05/27/18 06:12 Dose: 40 mg Famotidine (Pepcid) 20 mg PO BID [facility] Last Admin: 05/27/18 09:11 Dose: 20 mg Fluoxetine HCl (Prozac) 40 mg PO DAILY [facility] Last Admin: 05/27/18 09:11 Dose: 40 mg Fluticasone Propionate (Flonase Nasal [place]) 2 spray NASAL DAILY [facility] Last Admin: 05/27/18 09:09 Dose: 2 spray Hydroxyzine Pamoate (Vistaril Pamoate Capsule) 25 mg PO DAILY [facility] Last Admin: 05/27/18 09:11 Dose: 25 mg Lactulose (Chronulac, Cephulac) 10 gm PO DAILY [facility] Last Admin: 05/27/18 09:09 Dose: 10 gm Losartan Potassium (Cozaar) 50 mg PO DAILY [facility] Last Admin: 05/27/18 09:10 Dose: 50 mg Magnesium Hydroxide (Milk Of Magnesia) 30 ml PO DAILY PRN PRN PRN Reason: Constipation Last Admin: 05/24/18 07:39 Dose: 30 ml Non-Formulary Medication (Glecaprevir/Pibrentasvir [Mavyret 100-40 Mg Tablet]) [facility] Last Admin: 05/27/18 09:08 Dose: 3 tab Ondansetron HCl (Zofran) 4 mg IV Q8H PRN PRN PRN Reason: NAUSEA Last Admin: 05/23/18 06:35 Dose: 4 mg Oxycodone HCl (Oxyir) 5 - 10 mg PO Q4H PRN PRN PRN Reason: MOD-SEVERE PAIN (4-10/10) Last Admin: 05/24/18 12:26 Dose: 5 mg Sodium Chloride () 5 - 15 ml IV UD PRN PRN Reason: SALINE FLUSH Last Admin: 05/24/18 13:30 Dose: 10 ml Tramadol HCl (Ultram) 50 mg PO Q6H PRN PRN PRN Reason: PAIN Last Admin: 05/25/18 08:56 Dose: 50 mg Medical Necessity - Tobacco Use Smoking Status: Heavy Smoker (>10/day) Tobacco Use: Non-smoker Assessment/Plan All Active Problems Closed left hip fracture (Acute) Strain of groin (Acute) Patient is a 62-year-old gentleman with multiple comorbidities including cirrhosis of the liver secondary to chronic hep C, COPD, who is legally blind who stumbled and fell injuring his left hip imaging studies obtained in the emergency department demonstrated nondisplaced intratrochanteric fracture involving the left hip. Admitted to regular nursing floor consultation was placed to orthopedic surgery patient underwent ORIF 1. Acute mechanical fall; imaging studies on admission demonstrated studies obtained on admission demonstrated nondisplaced intratrochanteric fracture involving the left hip. Admitted to regular nursing floor consultation was placed to orthopedic surgery Dr. Bryan who did perform Left hip open reduction internal fixation, intramedullary nail fixation on 05/23/2018. Plan is for patient to be transferred to a halfway facility after obtaining insurance precertification. 2. Cirrhosis of the liver secondary to chronic hep C 3. Acute encephalopathy secondary to hepatic encephalopathy from patient's cirrhosis of the liver; did order ammonia level start patient given lactulose patient's ammonia level was slightly elevated had a good response to lactulose that was administered the day prior (05/25/2018). Patient encephalopathy significantly improved close to his baseline. 4. Coagulopathy secondary to patient underlying cirrhosis of the liver will continue to monitor vitamin K not effective in patient with Coagulopathy secondary to cirrhosis of the liver patient currently not bleeding 5. Hypertension-blood pressure controlled, home medications continued with dose adjustment as needed 6. Depression with anxiety 7. DVT prophylaxis SC Lovenox 8. COPD currently not in exacerbation 9. DVT prophylaxis SC Lovenox Code Visit Inpatient E&M: 35217 [facility] Hosp L2
--- NOTE | 2018-05-27 09:26 | DS.PCM_ITS ---
Discharge Date and Diagnosis Date of Admission: 05/22/18 Date of Discharge: 05/27/18 - Primary Discharge Diagnosis Active and Suspected Problems Closed left hip fracture (Acute) - Secondary Discharge Diagnosis Chronic Problems Hepatitis C (Chronic) Hepatic cirrhosis (Chronic) Chronic obstructive lung disease (Chronic) Hospital Course and Treatment Summary of Care Provided: Patient is a 62-year-old gentleman with multiple comorbidities including cirrhosis of the liver secondary to chronic hep C, COPD, who is legally blind who stumbled and fell injuring his left hip imaging studies obtained in the emergency department demonstrated nondisplaced intratrochanteric fracture involving the left hip. Admitted to regular nursing floor consultation was placed to orthopedic surgery patient underwent ORIF 1. Acute mechanical fall; imaging studies on admission demonstrated studies obtained on admission demonstrated nondisplaced intratrochanteric fracture involving the left hip. Admitted to regular nursing floor consultation was placed to orthopedic surgery Dr. Bryan who did perform Left hip open reduction internal fixation, intramedullary nail fixation on 05/23/2018. Patient transferred to a snf facility after obtaining insurance precertification. 2. Cirrhosis of the liver secondary to chronic hep C 3. Acute encephalopathy secondary to hepatic encephalopathy from patient's cirrhosis of the liver; did order ammonia level start patient given lactulose patient's ammonia level was slightly elevated had a good response to lactulose that was administered the day prior (05/25/2018). Patient encephalopathy significantly improved close to his baseline. 4. Coagulopathy secondary to patient underlying cirrhosis of the liver 5. Hypertension-blood pressure controlled, home medications continued with dose adjustment as needed 6. Depression with anxiety 7. DVT prophylaxis SC Lovenox 8. COPD currently not in exacerbation 9. DVT prophylaxis SC Lovenox Subjective: Clinical Impression(s) from Imaging Studies Pelvis X-Ray 05/22/18 12:37 IMPRESSION: Normal x-ray examination of the pelvis. Electronically Signed: Alan Silveira MD at 13:47 EST Tel [phone], Service support , Femur X-Ray 05/22/18 13:20 IMPRESSION: Normal x-ray examination of the femur. Electronically Signed: Alan Silveira MD at 13:48 EST Tel [phone], Service support , ADDENDUM: 05/22/18 1426 Chest X-Ray 05/22/18 13:51 IMPRESSION: Mild increased markings at the left lung base suggestive of atelectasis with blunting of the left costophrenic angle. Electronically Signed: Alan Silveira MD at 14:32 EST Tel [phone], Service support , Pelvis CT 05/22/18 14:41 IMPRESSION: Nondisplaced left intertrochanteric fracture. Electronically Signed: Alan Silveira MD at 15:48 EST Tel [phone], Service support , Brain CT 05/22/18 18:42 IMPRESSION: No acute intracranial abnormality. Chronic ischemic and atrophic changes. Postsurgical changes noted in the left eye. High density within the left lobe which may represent blood, but is of uncertain chronicity. Correlation with the patient's surgical history is recommended. Electronically Signed: Ranjit Teague at 19:54 EST Tel , Service support , Hip/Pelvis X-Ray 05/23/18 12:25 IMPRESSION: Limited views of the left hip were obtained intraoperatively during fracture fixation. Electronically Signed: Sheridan Schaefer MD at 0:56 EST Tel Direct: [phone], Service support , - Physical Exam General: Cooperative HEENT: Atraumatic Neck: No JVD Lungs: Diminished Cardiovascular: Regular rate, Regular Rhythm Neurological: Neuro grossly intact Vital Signs Temp Pulse Resp BP Pulse Ox 98.8 F 91 16 154/70 H 96 05/27/18 03:53 05/27/18 03:53 05/27/18 03:53 05/27/18 03:53 05/27/18 03:53 Oxygen Flow Rate (L/min) 1 Oxygen Delivery Method Room Air Weight: 98.883 kg Body Mass Index (BMI) 28.8 Intake and Output for Last 24 Hours 05/25/18 05/26/18 05/27/18 23:59 23:59 23:59 Intake Total 2624.7 / 2624.7 100 / 100 200 / 200 Output Total 620 / 620 Balance 2004.7 / 2004.7 100 / 100 200 / 200 Laboratory Tests Past 24 Hrs 05/23/18 05/24/18 05/27/18 06:37 05:55 05:36 WBC 10.5 RBC 3.11 L Hgb 9.7 L Hct 28.3 L MCV 91.0 MCH 31.2 MCHC 34.3 RDW 14.9 H RDW Differential 47.6 H Plt Count 262 MPV 10.8 Immature Gran % (Auto) 0.300 Neut % (Auto) 63.4 Lymph % (Auto) 11.5 L [place] % (Auto) 21.4 H Eos % (Auto) 2.7 Baso % (Auto) 0.7 Absolute Neuts (auto) 6.6 Absolute Lymphs (auto) 1.20 Total Counted Not Reportable Diff Path Review Reviewed Reviewed Discharge Diet: No Restrictions Home Medications: Medications to take at Discharge Albuterol Inhaler [Ventolin Hfa] 1 puff INHALATION PRN PRN 04/07/13 Losartan Potassium [Cozaar] 50 mg PO DAILY 03/22/17 Glecaprevir/Pibrentasvir [Mavyret 100-40 mg Tablet] 3 tab PO DAILY 05/15/18 Hydroxyzine HCl 25 mg PO DAILY 05/15/18 Fluoxetine HCl 40 mg PO DAILY 05/22/18 Fluticasone 0.05% [Flonase Nasal [place]] 2 puff NASAL DAILY 05/22/18 Polyvinyl Alcohol [Artificial Tears] 2 drop EACH EYE DAILY 05/22/18 Ranitidine HCl 150 mg PO BID 05/22/18 Enoxaparin [Lovenox] 40 mg SUBCUT DAILY@0600 #10 syringe 05/27/18 Lactulose [Chronulac] 10 gm PO DAILY udc 05/27/18 Magnesium Hydroxide [Milk Of Magnesia] 30 ml PO DAILY PRN PRN udc 05/27/18 Oxycodone [Oxyir] 5 mg PO Q4H PRN PRN 5 Days #20 tab 05/27/18 Following Prescrptions Were Given to Patient: Enoxaparin [Lovenox] 40 mg SUBCUT DAILY@0600 #10 syringe Oxycodone [Oxyir] 5 mg PO Q4H PRN PRN 5 Days #20 tab PRN Reason: Mod-Severe Pain (4-04/01) Primary Care Physician: Ric Coronado PA [Primary Care Provider] - Please follow up with your Primary Care Physician in: in 1-2 weeks Please Follow Up With: Timmy Bryan MD When: in 2-3 weeks Disposition: Half-Way facility Minutes spent on discharge:: 45 Patient Condition:: Stable Medical Necessity - Tobacco Use Smoking Status: Heavy Smoker (>10/day) Tobacco Use: Non-smoker Meaningful Use Info Meaningful Use Diagnoses (Choose all that apply): None applicable Code Visit Inpatient E&M: 32990 Disch Hosp
[2018-05-27 09:53] VITALS: BP 158/86; PULSE 97; RESP 16; TEMP 36.6; O2SAT 98
--- NOTE | 2018-05-27 10:24 | CASEMGMT ---
Addendum entered by Sara Espinal 05/27/18 12:06: CHERYL faxed updated clinicals to [facility]. Original Note: Social Work Note SW met with pt and pt's significant other Jannet present in room. SW updated pt and Jannet that [facility] has accepted pt and pre-cert has been submitted. Pt and Jannet state understanding. Plan: [facility] pending pre-cert Sara Espinal HOMICIDE INVESTIGATOR, STONE BANKER
--- NOTE | 2018-05-27 14:30 | CASEMGMT ---
Social Work Note SW received call from Arianne at [facility] stating pre-cert has been obtained and pt is able to discharge today. SW faxed completed discharge paperwork to [facility] including transfer to extended care facility, signed medication list, and any scripts. Originals in SNF folder and copy on pt's chart. SW completed convalescent 7000 in [facility]. Original in SNF folder and copy on pt's chart. SW updated RN Nikos and pt on discharge. Pt states understanding. SW set up transportation via [employer] via wheelchair van for 3:30pm. Transportation form on SNF folder and copy on pt's chart. SW updated RN Nikos and pt on transportation time. SW placed a call to Arianne at [facility] and updated her on transportation time. Pt gave this worker permission to call his friend Jannet. SW placed a call to Jannet and left her a message informing her of transportation time and discharge. Plan: Pt to discharge to [facility] today for rehabilitation at 3:30pm with [facility] transporting via wheelchair van Sara Espinal PLATFORM LOADER, SUPERINTENDENT CIRCUS
[2018-05-27 15:30] VITALS: BP 155/74; PULSE 93; RESP 16; TEMP 36.7; O2SAT 97
== END 2018-05-27 15:33 | disposition skilled nursing facility (03) | DRG 308 ==
LOC: ED 14:56 → MS3 16:42
PROVIDERS: Internal Medicine; Orthopaedic Surgery; Emergency Provider Emergency Medicine; Family Provider Physician Assistant; PCP Physician Assistant; Visit Provider Internal Medicine
PROC: 0QS706Z Reposition Left Upper Femur with Intramedullary Internal Fixation Device, Open Approach (ICD-10-PCS; CPT 27245; principal; 2018-05-23 11:55)
DX: S72.145A Nondisplaced intertrochanteric fracture of left femur, initial encounter for closed fracture (principal); K74.60 Unspecified cirrhosis of liver; B18.2 Chronic viral hepatitis C; J44.9 Chronic obstructive pulmonary disease, unspecified; H54.8 Legal blindness, as defined in USA; W01.0XXA Fall on same level from slipping, tripping and stumbling without subsequent striking against object, initial encounter; Y92.009 Unspecified place in unspecified non-institutional (private) residence as the place of occurrence of the external cause; F17.210 Nicotine dependence, cigarettes, uncomplicated; Z79.899 Other long term (current) drug therapy; E87.6 Hypokalemia; I10 Essential (primary) hypertension; K72.90 Hepatic failure, unspecified without coma; F41.8 Other specified anxiety disorders; D68.69 Other thrombophilia; D50.9 Iron deficiency anemia, unspecified
CPT/HCPCS: 36415; 70450; 71045; 72170; 72192; 73502; 73552; 76000; 80048; 80053; 80076; 82140; 82728; 83540; 83550; 83735; 84100; 85025; 85027; 85610; 85730; 86850; 86900; 93005; 97162; 97166; 97530; 97802; 99284; 99406; C1713; J7030; J7120; A4216; J2405

== ENCOUNTER 2018-07-31 20:52 | Emergency (ER) | payer MEDICAID, SELFPAY ==
[2018-07-31 20:52] VITALS: BMI 26.4
[2018-07-31 20:54] VITALS: BP 157/65; PULSE 87; RESP 18; TEMP 36.7; O2SAT 97; BMI 25.9
--- NOTE | 2018-07-31 21:32 | ED.VISSUMM ---
- ER Visit Summary Date of Service: 07/31/18 Chief Complaint: Right upper quadrant abdominal pain and left hip pain History of Present Illness: The patient is a 62 M tree of cirrhosis, anemia, skin cancer and legally blind. In April the patient fell causing a left hip fracture which he had surgically repaired. He states he has had abdominal pain for days. He has had this before with his cirrhosis. He is concerned it may be his gallbladder. He denies however nausea, vomiting, diarrhea or dysuria. No fever. Not associated with food or eating. He denies any abdominal trauma. He also states he has had left hip pain after recent pivoting and turning. He denies any fall or trauma. He did have a left hip fracture repair surgery in April 2018. Physical Examination: Well-appearing older male. Vital signs are stable. He is afebrile. He does not look septic or toxic. He is in no distress. HEENT exam is legally blind. Opacifications of both corneas. No signs of traumaor scalp. Neck nontender. Lungs clear to auscultation. Heart regular rhythm no murmur. Chest wall nontender. Abdomen soft. Mild tenderness right upper quadrant. No Elizondo sign. He does have known umbilical hernias. They are nontender. His abdomen is nondistended. There is no signs of traction. No peritoneal signs. Extremities moves all 4. He has decreased range of motion of the left hip from his recent hip surgery. There is no redness or warmth. He has a well-healed left hip surgical incision. Neurologically is awake and alert. He is legally blind. He is answering questions and following commands. Test Results: Left hip and pelvis x-ray show well-healed left hip fracture with orthopedic hardware. 12 he runs a baseline anemia this is much better than his normal. Electrolytes show potassium of 2.5 his potassium often runs low. Normal BUN, creatinine and gap. Liver enzymes are elevated but they have been around these numbers before. Lipase is normal. Emergency Department Course and Treatment: Repeat exam patient is doing well at 20 3:14 PM. He will be given oral potassium here and placed on potassium for home. Treatment Plan: Follow-up with his primary care physician. Lorraine Case for home. Have his potassium rechecked. Return if worse. Disposition: Discharge Impression: Acute on chronic abdominal pain of uncertain etiology with a history of liver cirrhosis Left hip pain status post recent left hip fracture with surgical repair Acute hypokalemia This note was generated with [employer] dictation software. It may contain incorrect words, spelling, and punctuation that were not noted in review of the chart prior to signing ED Disposition - Plan for ED Patient: Referrals: Ric Coronado PA [Primary Care Provider] -
--- NOTE | 2018-07-31 22:10 | RAD_ITS ---
STUDY: X-RAY - LEFT HIP REASON FOR EXAM: Male, 62 years old. Left hip pain TECHNIQUE: 2 views of the hip. AP pelvis COMPARISON: None. FINDINGS: Fixation alberto with distal interlocking screw in left femoral neck screw identified in the proximal left femur. There is osteoarthritic spur formation of the acetabular rim. Normal hip joint. Pelvic ring is intact with normal appearing sacroiliac joints and pubic symphysis. RAD/HIP, UNI W/ Pelvis 2-3 Views IMPRESSION: 1. No acute fracture. 2. Orthopedic fusion hardware of left proximal femur. Electronically Signed: Sukhi Slater MD at 22:22 EST , Service support ,
[2018-07-31 22:12] LABS: Absolute Lymphocyte Count 1.33 X10^3/ul (0.83-4.51); Absolute Neutrophil Count 5.8 X10^3/uL (2.0-7.7); Basophil# 0.07 X10^3/uL; Basophil% 0.8 % (0-1); Eosinophil# 0.29 X10^3/uL; Eosinophils% 3.2 % (0-5); Lymphocyte # 1.33 X10^3/ul (4.0); Lymphocyte % 14.8 % (19-41); Mean Corp Hgb Conc 34.3 g/gl (32-36); Mean Corpuscular Hgb 29.7 pg (27.0-32.0); Mean Corpuscular Volume 86.6 fL (80-94); Mean Platelet Vol. 10.8 fl (6.2-12.0); Monocyte# 1.45 X10^3/uL; Monocyte% 16.2 % (0-10); Neutrophil # 5.81 X10^3/uL (2.7-7.7); Neutrophil % 64.8 % (47-70); Platelet Count 227 K/mm3 (150-450); RBC Distribution Width CV 16.5 % (11.6-14.6); RBC Distribution Width SD 52.5 fl (35.1-43.9); Red Blood Count 4.04 M/mm3 (4.6-6.2)
[2018-07-31 22:13] LABS: POSITIVE COUNT NO; POSITIVE DIFFERENTIAL NO; POSITIVE MORPHOLOGY NO
[2018-07-31 22:43] LABS: AST(SGOT) 55 U/L (15-37); Alanine Aminotransfer ALT/SGPT 36 U/L (16-61); Albumin, Serum 2.6 g/dL (3.2-5.0); Alkaline Phosphatase 226 U/L (45-117); Anion Gap 7 (5-15); BUN 6 mg/dL (7-18); Bilirubin, Direct 1.01 mg/dL (0.00-0.30); Calcium,Total 8.1 mg/dL (8.5-10.1); Chloride 110 mmol/L (98-107); Creatinine, Serum 0.86 mg/dL (0.70-1.30); EST Glomerular Filtration Rate 96 mL/min (>60); Est Glom Filt Rate - Afr Amer 116 mL/min (>60); Estimated Creatinine Clearance 103.23 ml/min; Globulin 4.5 g/dL (2.2-4.2); Glucose 146 mg/dL (74-106); Lipase 311 U/L (73-393); Potassium 2.5 mmol/L (3.5-5.1); Protein, Total 7.1 g/dL (6.4-8.2); Sodium Level 142 mmol/L (136-145)
--- NOTE | 2018-07-31 22:43 | ED.RN ---
lab called to report potassium 2.5. dr. hannah notified.
--- NOTE | 2018-07-31 23:17 | ED.DEP ---
ED Disposition - Plan for ED Patient: Disposition: Home or Assisted Living Instructions: ED Abdominal Pain Unkn Cause, Discharge Instructions for Hypokalemia Prescriptions: Potassium Chloride [K-Dur] 20 meq PO BID 14 Days tab Referrals: Ric Coronado PA [Primary Care Provider] - 3-5 Days Additional Instructions: Tests are basically unremarkable other than your potassium being low. We will place you on potassium replacement be taken twice a day call K Dur. Follow-up with your primary care provider. The x-ray of your hip looked good. The prior hip fracture has healed well.
[2018-07-31 23:40] VITALS: BP 126/71; PULSE 64; PULSE 67; RESP 16; RESP 18; O2SAT 97; O2SAT 98
== END 2018-07-31 23:46 | disposition home or self-care (01) ==
PROVIDERS: Emergency Provider Emergency Medicine; Family Provider Physician Assistant; PCP Physician Assistant
DX: R10.11 Right upper quadrant pain (principal); G89.29 Other chronic pain; K74.60 Unspecified cirrhosis of liver; M25.552 Pain in left hip; E87.6 Hypokalemia; K42.9 Umbilical hernia without obstruction or gangrene; D64.9 Anemia, unspecified; H54.8 Legal blindness, as defined in USA; Z85.828 Personal history of other malignant neoplasm of skin
CPT/HCPCS: 73502; 80048; 80076; 83690; 85025; 99284; A4216

== ENCOUNTER 2018-08-19 17:11 | Emergency (ER) | payer MEDICAID, SELFPAY ==
[2018-08-19 17:12] VITALS: BP 150/112; PULSE 72; RESP 16; TEMP 36.6; O2SAT 100; BMI 25.9
--- NOTE | 2018-08-19 17:50 | RAD_ITS ---
STUDY: X-RAY - PELVIS AND LEFT HIP REASON FOR EXAM: Male, 62 years old. Left hip pain after fall. TECHNIQUE: 3 views of the pelvis and hip. COMPARISON: AP pelvis and additional views of the left tib-fib July 31, 2018. FINDINGS: There is a non-specific bowel gas pattern. Normal visualized soft tissue structures. There is mild narrowing with early cortical sclerosis of the left sacroiliac joint, consistent with degenerative osteoarthritic changes. Normal bilateral iliac wings and visualized sacrum. Normal bilateral superior and inferior pubic rami. Normal pubic symphysis. Normal bilateral ischial tuberosities. There is healed prior ORIF of a proximal right femur fracture with an intramedullary alberto and compression screw. The distal intramedullary alberto is again secured by transverse metal screw in the proximal femoral diaphysis. The metal hardware appears intact. There is stable osteoarthritic spur formation of the acetabular rim. Normal hip joint. There is no demonstrated acute fracture RAD/HIP, UNI W/ Pelvis 2-3 Views IMPRESSION: Healed prior ORIF of the proximal left femur with metal hardware again noted. No demonstrated acute fracture Electronically Signed: Bola Johnson, at 18:37 EST , Service support ,
--- NOTE | 2018-08-19 17:53 | ED.DCSUM_ITS ---
- ER Visit Summary Date of Service: 08/19/18 Chief Complaint: Left hip pain History of Present Illness: The patient is a 62 M who presents the emergency department with left hip pain patient states that a couple months ago he had a left hip fracture and had surgery with Dr. Bryan. States he has been doing well. 3 days ago he was laying in bed fell out of bed and landed on the left hip. He states it was sore he was doing okay. Today he was sitting in the car for about 30 minutes waiting for someone to come out of the store. He had sudden onset of severe pain in the left hip. States he feels that more like a muscle spasm. Concerned he may have broke his hip again. Physical Examination: Afebrile vital signs stable Gen: Well-nourished well-developed Head: Normocephalic atraumatic Eyes: Perrl EOMI ENT: TMs clear no rhinorrhea moist mucous membranes Neck: Supple no lymphadenopathy no JVD nontender CVS: Regular rate rhythm no murmurs normal S1-S2 Respiratory: No distress clear to auscultation bilaterally chest nontender Abdomen: Soft nontender nondistended normal bowel sounds no masses Back: Nontender Extremity: Patient has painful range of motion of the left hip. Skin: Normal color no rash Neuro: alert orientated ?3 CN II-XII intact normal strength sensation reflexes gait cerebellar Psych: Normal affect normal mood Test Results: Left hip series was obtained. Did not demonstrate fracture dislocation. Emergency Department Course and Treatment: The Valium and Motrin prior to the treatment he does state that his symptoms were greatly improving. Since treatment he is much more comfortable. I think the patient most likely suffered a muscle spasm. I will write for a few Valium at home. Instructions on heat stretching and oral hydration. Impression: 1. Left hip muscle spasm This note was generated with [employer] dictation software. It may contain incorrect words, spelling, and punctuation that were not noted in review of the chart prior to signing ED Disposition - Plan for ED Patient: Disposition: Home or Assisted Living Instructions: ED Spasm Muscle Prescriptions: Diazepam [Valium] 5 mg PO Q8 PRN #10 tab PRN Reason: Muscle Spasm Referrals: Ric Coronado PA [Primary Care Provider] - As Needed
[2018-08-19] MEDS: diazePAM 5 MG Tablet PO (18:21)
[2018-08-19] MEDS: Ibuprofen 600 MG Tablet PO (18:21)
[2018-08-19 19:18] VITALS: BP 121/68; PULSE 87; RESP 17; O2SAT 98
== END 2018-08-19 19:19 | disposition home or self-care (01) ==
PROVIDERS: Emergency Provider Emergency Medicine; Family Provider Physician Assistant; PCP Physician Assistant
DX: M62.838 Other muscle spasm (principal); J44.9 Chronic obstructive pulmonary disease, unspecified; K74.60 Unspecified cirrhosis of liver; Z87.891 Personal history of nicotine dependence; Z86.19 Personal history of other infectious and parasitic diseases; W06.XXXA Fall from bed, initial encounter; Y93.9 Activity, unspecified; Y92.003 Bedroom of unspecified non-institutional (private) residence as the place of occurrence of the external cause; Y99.9 Unspecified external cause status
CPT/HCPCS: 73502; 99283

== ENCOUNTER 2018-10-24 00:14 | Emergency (ER) | payer MEDICAID, SELFPAY ==
[2018-10-24 00:15] VITALS: BP 168/69; PULSE 103; RESP 22; TEMP 37.1; O2SAT 100; BMI 27.5
--- NOTE | 2018-10-24 00:16 | EKG12_ITS ---
Test Reason : GEN ILLNESS Blood Pressure : / mmHG Vent. Rate : 087 BPM Atrial Rate : 087 BPM P-R Int : 148 ms QRS Dur : 096 ms QT Int : 482 ms P-R-T Axes : 073 058 039 degrees QTc Int : 580 ms Normal sinus rhythm with sinus arrhythmia Nonspecific ST abnormality Prolonged QT Abnormal ECG Confirmed by GIRMA TRAN, ASHISH ([id number]), desk editor WENDY COHN ([id number]) on 10/27/2018 1:19:14 PM Referred By: JACQUE Confirmed By:ASHISH RAYO MD
--- NOTE | 2018-10-24 00:21 | ED.VISSUMM ---
- ER Visit Summary Date of Service: 10/24/18 Chief Complaint: Vomiting History of Present Illness: The patient is a 63 M presenting with vomiting. He states this started around 11 AM this morning. He states he has vomited approximately 18 times today. He denies diarrhea. He has diffuse abdominal pain. He has a history of chronic abdominal pain. He states this is no worse than usual. He is visually impaired and is unsure if he had blood in his stool or emesis. He denies chest pain or shortness of breath. Denies fever. He states his girlfriend brought him a sub-sandwich last night and he feels this may have contributed to his symptoms. No recent antibiotics. No recent travel. No other complaints. Physical Examination: Vitals are stable. Patient is afebrile. Alert no acute distress. HEENT exam dry mucous membranes Neck is supple. Lungs are clear and equal bilaterally. Heart is regular rate and rhythm. Abdomen is soft mild diffuse tenderness with no rebound or guarding Extremities symmetric edema Skin is warm and dry. No focal neurologic deficit. Remainder of exam is unremarkable. Emergency Department Course and Treatment: Patient given IV fluids, Zofran. EKG sinus rate of 87. CBC shows white count 15.0, hemoglobin 12.0. Chemistries show potassium 2.7. He was given potassium oral replacement. Liver enzymes show total bili 2.4, direct bili 0.82, alk phos 208, AST 59. This is similar to previous. Lipase is 433. Urinalysis unremarkable. On reevaluation, patient is feeling improved. He is able to tolerate p.o. in the ED. He is requesting to go home. He states his abdominal pain has resolved. He is given prescription for K-Dur. Advised to follow-up with his primary care physician. Advised return to ED for worsening complaints. Disposition: Discharge home Impression: Vomiting, hypokalemia This note was generated with [employer] dictation software. It may contain incorrect words, spelling, and punctuation that were not noted in review of the chart prior to signing ED Disposition - Plan for ED Patient: Instructions: ED Nausea Vomiting Prescriptions: Potassium Chloride [K-Dur] 20 meq PO BID #14 tablet Referrals: Ric Coronado PA [Primary Care Provider] -
[2018-10-24 00:22] VITALS: TEMP 37.1
[2018-10-24] MEDS: Ondansetron 4 MG/2 ML Vial IV (00:28)
[2018-10-24 00:39] LABS: Absolute Neutrophil Count 11.4 X10^3/uL (2.0-7.7); Basophil% 0.7 % (0-1); Eosinophil# 0.12 X10^3/uL; Eosinophils% 0.8 % (0-5); Hematocrit 34.4 % (40-54); Lymphocyte % 8.6 % (19-41); Mean Corp Hgb Conc 34.9 g/gl (32-36); Mean Corpuscular Hgb 30.9 pg (27.0-32.0); Mean Corpuscular Volume 88.7 fL (80-94); Mean Platelet Vol. 10.7 fl (6.2-12.0); Monocyte# 2.04 X10^3/uL; Monocyte% 13.6 % (0-10); Neutrophil # 11.44 X10^3/uL (2.7-7.7); Neutrophil % 76.1 % (47-70); Platelet Count 311 K/mm3 (150-450); RBC Distribution Width CV 15.2 % (11.6-14.6); RBC Distribution Width SD 48.6 fl (35.1-43.9); Red Blood Count 3.88 M/mm3 (4.6-6.2)
[2018-10-24 00:44] LABS: Differential Indicated SCAN CRITERIA MET; POSITIVE COUNT NO; POSITIVE DIFFERENTIAL YES; POSITIVE MORPHOLOGY NO
[2018-10-24 00:48] LABS: AST(SGOT) 59 U/L (15-37); Alanine Aminotransfer ALT/SGPT 45 U/L (16-61); Alkaline Phosphatase 208 U/L (45-117); Anion Gap 9 (5-15); BUN 18 mg/dL (7-18); BUN/Creat Ratio 16.5 RATIO (10-20); Bilirubin, Direct 0.82 mg/dL (0.00-0.30); Chloride 104 mmol/L (98-107); Creatinine, Serum 1.09 mg/dL (0.70-1.30); EST Glomerular Filtration Rate 73 mL/min (>60); Est Glom Filt Rate - Afr Amer 88 mL/min (>60); Estimated Creatinine Clearance 80.43 ml/min; Globulin 4.9 g/dL (2.2-4.2); Glucose 85 mg/dL (74-106); Lipase 433 U/L (73-393); Potassium 2.7 mmol/L (3.5-5.1); Protein, Total 7.9 g/dL (6.4-8.2); Sodium Level 140 mmol/L (136-145)
--- NOTE | 2018-10-24 01:05 | ED.RN ---
lab called with critical lab results. Potassium level 2.7. Dr. Sargent made aware. no new orders at this time
[2018-10-24 01:12] LABS: White Blood Cells 0 SEEN /hpf (0-5)
[2018-10-24 01:13] LABS: Color, Urine Yellow (Yellow); Glucose, Dipstick Normal (Normal); Ketone-Dipstick 5 mg/dl (Negative); Leukocyte Esterase-Dipstick Negative /ul (Negative); Nitrite-Dipstick Negative (Negative); Occult Blood-Urine 25 /ul (Negative); Protein-Dipstick Negative (Negative); Urine Bilirubin Dipstick Negative (Negative); Urine Clarity Clear (Clear); Urine Urobilinogen Normal (Normal); Urine pH 6.5 (5.0 - 8.0)
[2018-10-24 01:19] LABS: Mucous, Urine RARE /hpf (<or=2+); Red Blood Cells-Urine 0-5 SEEN /hpf (0-5)
[2018-10-24 01:20] LABS: Bacteria RARE /hpf (None Seen); Squamous Epithelial Cells - UA 0-5 SEEN /hpf (0-5)
[2018-10-24 01:46] LABS: Differential Comment SCANNED; Platelet Estimate ADEQUATE (ADEQ)
[2018-10-24 02:14] VITALS: BP 143/59; PULSE 89; RESP 16; O2SAT 96
[2018-10-24 02:22] VITALS: TEMP 37
[2018-10-24 03:00] VITALS: TEMP 36.9
--- NOTE | 2018-10-24 03:08 | ED.DEP ---
ED Disposition - Plan for ED Patient: Instructions: ED Nausea Vomiting Prescriptions: Potassium Chloride [K-Dur] 20 meq PO BID #14 tablet Referrals: Ric Coronado PA [Primary Care Provider] -
[2018-10-24 03:27] VITALS: BP 140/59; PULSE 90; RESP 16; O2SAT 97
[2018-10-26 12:54] LABS: Pathologist Review Reviewed
== END 2018-10-24 03:28 | disposition home or self-care (01) ==
PROVIDERS: Emergency Provider Emergency Medicine; Family Provider Physician Assistant; PCP Physician Assistant
DX: R11.2 Nausea with vomiting, unspecified (principal); E87.6 Hypokalemia; R10.9 Unspecified abdominal pain; J44.9 Chronic obstructive pulmonary disease, unspecified
CPT/HCPCS: 80048; 80076; 81001; 83690; 85025; 93005; 99285; J7040; A4216; J2405

== ENCOUNTER 2018-11-27 03:48 | Emergency (ER) | payer MEDICAID, SELFPAY ==
[2018-11-27 03:49] VITALS: BP 138/60; PULSE 79; RESP 18; TEMP 36.7; O2SAT 99; BMI 30.7
[2018-11-27 03:57] VITALS: TEMP 36.7
--- NOTE | 2018-11-27 04:07 | ED.VIS.GEN ---
History of Present Illness Chief Complaint: Edema Narrative: Patient is a 63-year-old male who presents with redness swelling and pain in his legs. He reports that this is been going on since last year and believes it began may be a April. He denies any recent acute changes in this. He denies any sudden increased pain or redness. He did see his primary care provider yesterday who was concerned that it may be cellulitis and also wanted him to have ultrasounds and recommended that he go to the emergency department however he did not present at that time. Tonight he had some pain and tingling in his fingers. He called EMS and was brought in. He denies fevers chest pain shortness of breath nausea vomiting. Past Medical History - Allergies and Home Meds Allergies/Adverse Reactions: Allergies ketorolac [From Toradol] Allergy (Verified 11/27/18 03:53) Hives morphine Adverse Reaction (Verified 11/27/18 03:53) Vomiting Primary Care Physician: Ric Coronado PA [Primary Care Provider] - Past Medical History: - - Hypertension Surgical History: appendectomy Smoking Status: Former smoker - Family History Maternal Family History: Reports: Unknown - Patient is adopted Review of Systems All systems negative except as indicated Physical Exam Vital Signs/Narrative: Vital Signs Temp Pulse Resp BP Pulse Ox 11/27/18 03:57 98.1 F 11/27/18 03:49 98.1 F 79 18 138/60 H 99 Head: Normocephalic, Atraumatic Eyes: Perrl, EOMI ENT: Moist mucous membranes Neck: Supple Cardiovascular: Regular rate, Regular rhythm Respiratory: No distress, CTA bilaterally Abdomen: Soft, Nontender Extremities: - - 3+ edema of the lower extremities as well as erythema warmth to the touch and skin thickening consistent with chronic venous stasis, bilateral biphasic Doppler dorsalis pedis pulses, normal examination of the hands skin warm and dry no erythema brisk capillary refill easily palpable radial pulses full range of motion Neurological: Alert Psychological: Normal affect Diagnostic/Tx/Re-eval - Medical Decision Making Examination of the legs is most consistent with venous stasis/stasis dermatitis given persistent symptoms of greater than 6 months without any acute changes, fever, tachycardia. I do not believe this is cellulitis. His primary care provider had also told him to come into the emergency department yesterday for ultrasounds. They are not available at night. I have placed an order to have this performed later today. Patient understands to return for new or worsening symptoms and will be discharged. ED Disposition - Plan for ED Patient: Disposition: Home or Assisted Living Diagnosis: Stasis dermatitis of both legs Instructions: ED Leg Swelling Bilateral Referrals: Ric Coronado PA [Primary Care Provider] -
[2018-11-27 04:32] VITALS: PULSE 76; RESP 16; O2SAT 98
== END 2018-11-27 05:06 | disposition home or self-care (01) ==
PROVIDERS: Emergency Provider Emergency Medicine; Family Provider Physician Assistant; PCP Physician Assistant
DX: I87.2 Venous insufficiency (chronic) (peripheral) (principal); I10 Essential (primary) hypertension; Z87.891 Personal history of nicotine dependence
CPT/HCPCS: 99285; J7030

== ENCOUNTER 2018-12-26 13:50 | Emergency (ER) | payer MEDICAID, SELFPAY ==
[2018-12-26 13:52] VITALS: BP 176/79; PULSE 83; RESP 16; TEMP 36.8; O2SAT 99; BMI 30.5
--- NOTE | 2018-12-26 14:30 | EKG12_ITS ---
Test Reason : FALL Blood Pressure : / mmHG Vent. Rate : 081 BPM Atrial Rate : 081 BPM P-R Int : 146 ms QRS Dur : 090 ms QT Int : 428 ms P-R-T Axes : 073 068 019 degrees QTc Int : 497 ms Normal sinus rhythm Prolonged QT Abnormal ECG Confirmed by GIRMA TRAN, ASHISH ([id number]), makeup editor CASSY HAAS ([id number]) on 12/29/2018 1:57:03 PM Referred By: OSMANI Confirmed By:ASHISH RAYO MD
--- NOTE | 2018-12-26 14:31 | ED.DCSUM_ITS ---
- ER Visit Summary Date of Service: 12/26/18 Chief Complaint: Fall History of Present Illness: The patient is a 63 M who presents after a fall that occurred today. Patient states she was walking in the [place] when he slipped or tripped over something. Patient states he fell to the ground and was unable to get up afterwards. Patient states he was able to crawl to a log and was able to lay on the log. Patient states he laid on the log for 1 to 2 hours. Patient states he has pain in his lower extremities. Patient describes his pain is burning. Patient denies any paresthesias. Patient admits to some weakness. Patient is unsure of his last tetanus. Physical Examination: Vital signs are stable. Patient is afebrile. Patient is in no acute distress. Cranial nerves II through XII are intact. There are no focal motor or sensory deficits noted. Musculoskeletal exam reveals tenderness and edema of the lower extremities bilaterally. There is erythema noted. There is no deformity noted. Range of motion was limited in all motions of the knees and ankles bilaterally secondary to pain. Test Results: Mild leukocytosis of 11.1. Hemoglobin was 11.0. Total bilirubin was slightly elevated at 1.5. INR is 1.4. Urinalysis does not show any evidence of urinary tract infection or hematuria. Troponin was less than 0.015. Total CK was slightly elevated at 743. EKG showed normal sinus rhythm with a rate of 81. There are no acute ST or T wave changes noted. Emergency Department Course and Treatment: Patient was given a dose of oxycodone here. Patient was able to ambulate with a walker here in the emergency department. Patient feels safe going home. Social work was then to see the patient. She is going to call the brother who is his power of assistant attorney general to make sure that his brother will follow up with his doctor on Friday. She is also going to try to get him help with [employer]. Patient understands and is agreeable with the plan. All questions were answered. Disposition: Discharge home Impression: Fall This note was generated with [employer] dictation software. It may contain incorrect words, spelling, and punctuation that were not noted in review of the chart prior to signing ED Disposition - Plan for ED Patient: Disposition: Home or Assisted Living Diagnosis: Fall Instructions: FALL, Mechanical Referrals: Ric Coronado PA [Primary Care Provider] - 2 Days
[2018-12-26 14:44] LABS: Absolute Lymphocyte Count 0.91 X10^3/ul (0.83-4.51); Absolute Neutrophil Count 8.6 X10^3/uL (2.0-7.7); Basophil# 0.04 X10^3/uL; Basophil% 0.4 % (0-1); Eosinophil# 0.04 X10^3/uL; Eosinophils% 0.4 % (0-5); Hematocrit 32.7 % (40-54); Lymphocyte # 0.91 X10^3/ul (4.0); Lymphocyte % 8.2 % (19-41); Mean Corp Hgb Conc 33.6 g/gl (32-36); Mean Corpuscular Hgb 27.2 pg (27.0-32.0); Mean Corpuscular Volume 80.9 fL (80-94); Mean Platelet Vol. 10.9 fl (6.2-12.0); Monocyte# 1.41 X10^3/uL; Monocyte% 12.7 % (0-10); Neutrophil # 8.64 X10^3/uL (2.7-7.7); Neutrophil % 78.1 % (47-70); Platelet Count 329 K/mm3 (150-450); RBC Distribution Width CV 15.3 % (11.6-14.6); Red Blood Count 4.04 M/mm3 (4.6-6.2); White Blood Count 11.1 K/mm3 (4.4-11.0)
[2018-12-26 14:46] LABS: POSITIVE COUNT NO; POSITIVE DIFFERENTIAL NO; POSITIVE MORPHOLOGY NO
[2018-12-26 14:47] LABS: International Normalized Ratio 1.4; Prothrombin Time (Protime)PT. 17.2 SECONDS (11.7-14.9)
[2018-12-26 14:48] LABS: Partial Thromboplast Time 35.6 Seconds (24.1-36.2)
[2018-12-26 14:53] VITALS: BP 158/79; PULSE 81; RESP 14; O2SAT 99
[2018-12-26 14:54] LABS: ALB/GLOB Ratio 0.7 RATIO (0.9-2.4); AST(SGOT) 53 U/L (15-37); Alanine Aminotransfer ALT/SGPT 35 U/L (16-61); Albumin, Serum 3.1 g/dL (3.2-5.0); Alkaline Phosphatase 147 U/L (45-117); Anion Gap 7 (5-15); BUN 12 mg/dL (7-18); BUN/Creat Ratio 12.2 RATIO (10-20); CPK Total, Creatine Kinase 743 U/L (39-308); Calcium,Total 9.1 mg/dL (8.5-10.1); Chloride 107 mmol/L (98-107); Creatinine, Serum 0.98 mg/dL (0.70-1.30); EST Glomerular Filtration Rate 82 mL/min (>60); Est Glom Filt Rate - Afr Amer 99 mL/min (>60); Estimated Creatinine Clearance 89.46 ml/min; Globulin 4.6 g/dL (2.2-4.2); Glucose 121 mg/dL (74-106); Potassium 3.5 mmol/L (3.5-5.1); Protein, Total 7.7 g/dL (6.4-8.2); Sodium Level 139 mmol/L (136-145)
[2018-12-26] MEDS: Diphth,Pertuss(Acell),Tet Vac 0.5 ML Vial IM (14:54)
[2018-12-26] MEDS: 0.9% Normal Saline 1,000 ML 1000 ML IV (14:55)
[2018-12-26 14:56] LABS: Bacteria 0 SEEN /hpf (None Seen); Red Blood Cells-Urine 0 SEEN /hpf (0-5); Squamous Epithelial Cells - UA 0 SEEN /hpf (0-5)
[2018-12-26 15:18] LABS: Color, Urine Yellow (Yellow); Glucose, Dipstick Normal (Normal); Ketone-Dipstick 5 mg/dl (Negative); Leukocyte Esterase-Dipstick 25 /ul (Negative); Nitrite-Dipstick Negative (Negative); Occult Blood-Urine Negative /ul (Negative); Protein-Dipstick 15 mg/dl (Negative); Specific Gravity, Urine 1.015 (1.002-1.030); Urine Bilirubin Dipstick Negative (Negative); Urine Clarity Clear (Clear); Urine Urobilinogen 4 mg/dl (Normal)
[2018-12-26] MEDS: oxyCODONE 5 MG Tablet PO (15:23)
[2018-12-26 15:33] LABS: Mucous, Urine 2+ /hpf (<or=2+); White Blood Cells 0-5 SEEN /hpf (0-5)
[2018-12-26 17:23] VITALS: BP 142/66; PULSE 75; RESP 20; O2SAT 95
--- NOTE | 2018-12-26 18:00 | CM.ED ---
Social Work Consult: Resources Informant: Dr. Ruano Met with patient in room. Patient reporting to live alone in a 1-story home with 1 step to enter the home. Patient reporting to be legally blind. Patient stating that Health care power of criminal defense attorney is patient brother Jonas Hawk. Patient girlfriend, Jannet of 17 years is patient main support system at this time. Patient stating to walk with a walker within the home and community. Patient reporting to have limited support and to have no concerns with meals within the home. Patient reporting to have trouble with maintaining home and would be interested in a medical alert system. This social scientist proposing PASSPORT services, patient agreeable to this social scientist making referral. Support provided. Referral made for PASSPORT services. Ernesto TOLBERT, BILL
[2018-12-26 18:15] VITALS: BP 131/63; PULSE 78; RESP 14; O2SAT 95
== END 2018-12-26 18:33 | disposition home or self-care (01) ==
PROVIDERS: Emergency Provider Emergency Medicine; Family Provider Physician Assistant; PCP Physician Assistant
DX: M54.9 Dorsalgia, unspecified (principal); R53.1 Weakness; R60.0 Localized edema; W18.09XA Striking against other object with subsequent fall, initial encounter; Y93.01 Activity, walking, marching and hiking; Y92.89 Other specified places as the place of occurrence of the external cause; Y99.9 Unspecified external cause status; I10 Essential (primary) hypertension; K21.9 Gastro-esophageal reflux disease without esophagitis
CPT/HCPCS: 80053; 81001; 82550; 84484; 85025; 85610; 85730; 90715; 93005; 96360; 99285; J7030; A4216

== ENCOUNTER 2019-01-04 19:05 | Observation (INO) | payer MEDICAID, SELFPAY ==
[2019-01-04 19:06] VITALS: BP 159/75; PULSE 78; RESP 16; TEMP 36.7; O2SAT 98; BMI 28.3
[2019-01-04 19:38] VITALS: BP 153/76; PULSE 71; RESP 17; TEMP 36.7; O2SAT 97
[2019-01-04 20:45] LABS: Absolute Lymphocyte Count 1.81 X10^3/ul (0.83-4.51); Absolute Neutrophil Count 4.6 X10^3/uL (2.0-7.7); Basophil# 0.08 X10^3/uL; Basophil% 0.9 % (0-1); Eosinophil# 0.55 X10^3/uL; Eosinophils% 6.2 % (0-5); Hematocrit 31.7 % (40-54); Hemoglobin 10.5 g/dl (13.0-16.5); Lymphocyte # 1.81 X10^3/ul (4.0); Lymphocyte % 20.3 % (19-41); Mean Corp Hgb Conc 33.1 g/gl (32-36); Mean Corpuscular Hgb 26.4 pg (27.0-32.0); Mean Corpuscular Volume 79.6 fL (80-94); Mean Platelet Vol. 11.3 fl (6.2-12.0); Monocyte# 1.88 X10^3/uL; Monocyte% 21.1 % (0-10); Neutrophil # 4.59 X10^3/uL (2.7-7.7); Neutrophil % 51.3 % (47-70); Platelet Count 278 K/mm3 (150-450); RBC Distribution Width CV 16.1 % (11.6-14.6); RBC Distribution Width SD 45.7 fl (35.1-43.9); Red Blood Count 3.98 M/mm3 (4.6-6.2); White Blood Count 8.9 K/mm3 (4.4-11.0)
[2019-01-04 20:46] LABS: International Normalized Ratio 1.5; Prothrombin Time (Protime)PT. 17.6 SECONDS (11.7-14.9)
[2019-01-04 20:47] LABS: Partial Thromboplast Time 37.7 Seconds (24.1-36.2)
[2019-01-04 20:49] LABS: Differential Indicated SCAN CRITERIA MET; POSITIVE COUNT NO; POSITIVE DIFFERENTIAL YES; POSITIVE MORPHOLOGY NO
[2019-01-04 21:03] LABS: AST(SGOT) 39 U/L (15-37); Alanine Aminotransfer ALT/SGPT 30 U/L (16-61); Albumin, Serum 2.9 g/dL (3.2-5.0); Alkaline Phosphatase 177 U/L (45-117); Anion Gap 4 (5-15); BUN 10 mg/dL (7-18); BUN/Creat Ratio 12.1 RATIO (10-20); Bilirubin, Direct 0.46 mg/dL (0.00-0.30); Calcium,Total 8.6 mg/dL (8.5-10.1); Chloride 109 mmol/L (98-107); Creatinine, Serum 0.83 mg/dL (0.70-1.30); EST Glomerular Filtration Rate 100 mL/min (>60); Est Glom Filt Rate - Afr Amer 121 mL/min (>60); Estimated Creatinine Clearance 105.62 ml/min; Globulin 4.1 g/dL (2.2-4.2); Glucose 90 mg/dL (74-106); Potassium 3.5 mmol/L (3.5-5.1); Sodium Level 140 mmol/L (136-145)
[2019-01-04 21:41] LABS: Differential Comment SCANNED
[2019-01-04] MEDS: predniSONE 20 MG Tablet 60 MG PO (21:48)
[2019-01-04 21:50] VITALS: BP 174/74; PULSE 75; RESP 15; O2SAT 98
--- NOTE | 2019-01-04 21:56 | PCM.HP.STD ---
Problem List (1) Hepatic cirrhosis Status: Chronic (2) Bullous pemphigoid Status: Acute History of Present Illness Date of Admission: 01/04/19 Chief Complaint: blisters The patient is a 63 year old M with a significant history of cirrhosis; hepatitis C; visual impairment; and venous stasis who presented to the emergency department with 2 to 3 days of blisters on his extremities; and face. At the emergency department patient was given steroids for probable bullous pemphigoid. Also patient complained of a 10-day history of diarrhea. Past Medical History Past Medical History (Chronic Problems): Chronic Problems Hepatitis C (Chronic) Hepatic cirrhosis (Chronic) Chronic obstructive lung disease (Chronic) Allergies ketorolac [From Toradol] Allergy (Verified 01/04/19 19:06) Hives morphine Adverse Reaction (Verified 01/04/19 19:06) Vomiting Home Medications: Ambulatory Orders Medication Instructions Recorded Hydroxyzine HCl 25 - 50 mg PO DAILY 05/15/18 Fluoxetine HCl 40 mg PO DAILY 05/22/18 Polyvinyl Alcohol [Artificial 2 drop EACH EYE DAILY 05/22/18 Tears] Furosemide [Lasix] 20 mg PO DAILY 01/04/19 Ranitidine HCl 150 mg PO BID 01/04/19 Surgical History: appendectomy, - - Intestinal surgery; hip surgery Psychiatric History: Anxiety, Depression Lives: Alone Smoking Status: Former smoker Alcohol: None - *Family History Maternal History Items: Unknown - Patient is adopted Paternal History Items: Unknown - Patient was adopted Review of Systems Constitutional: Denies: Chills, Fever, Weight Change HEENT: Denies: Head Aches, Sinus Congestion, Sinus Drainage Cardiovascular: Reports: Edema - Bilateral lower extremities. Denies: Chest Pain, Palpitations Respiratory: Denies: Cough, Shortness of breath at rest, Sputum production Gastrointestinal: Denies: Abdominal Pain, Nausea, Vomiting Genitourinary: Denies: Dysuria Musculoskeletal: Reports: Back Pain. Denies: Joint Pain, Joint Tenderness Skin: Reports: Rash. Denies: Wounds Neurological: Denies: Numbness, Tingling, Focal weakness Psychiatric: Reports: Anxiety, Depression. Denies: Homicidal Ideations, Suicidal Ideations Hematologic/ Lymphatic: Denies: Easy Bruising, Easy Bleeding VTE Information - Inpt Only VTE Present on Admission: No VTE Mechan Device Prophylaxis: None VTE Pharm Prophylaxis ordered?: Yes Patient Problems: Active and Suspected Problems Bullous pemphigoid (Acute) - Physical Exam General: Alert, Oriented x3, Cooperative HEENT: Atraumatic, Normocephalic, - - cloudy eyes Neck: Supple, No JVD, Negative Carotid Bruits Lungs: Clear to auscultation, Normal air movement Cardiovascular: Regular rate, No murmurs Abdomen: Bowel Sounds Present, Soft, Non Tender Extremities: Capillary Refill Less than 3 Seconds, Edema Skin: - - Scattered bullous rash and flat erythematous rash promininet in all extremities and mild on face. Swelling on right middle back. Bilateral leg erythema Musculoskeletal: No Tenderness to Palpation of Joints or Extremities Neurological: - - Unable to count fingers but could identify examiner as in white coat Psych/Mental Status: Normal Affect, Appropriate Vital Signs Temp Pulse Resp BP Pulse Ox 98.1 F 75 15 174/74 H 98 01/04/19 19:38 01/04/19 21:50 01/04/19 21:50 01/04/19 21:50 01/04/19 21:50 Oxygen Delivery Method Room Air Weight: 97.522 kg Body Mass Index (BMI) 28.3 Laboratory Tests Past 24 Hrs 01/04/19 01/04/19 01/04/19 20:16 20:16 20:16 WBC 8.9 RBC 3.98 L Hgb 10.5 L Hct 31.7 L MCV 79.6 L MCH 26.4 L MCHC 33.1 RDW 16.1 H RDW Differential 45.7 H Plt Count 278 MPV 11.3 Immature Gran % (Auto) 0.200 Neut % (Auto) 51.3 Lymph % (Auto) 20.3 [place] % (Auto) 21.1 H Eos % (Auto) 6.2 H Baso % (Auto) 0.9 Absolute Neuts (auto) 4.6 Absolute Lymphs (auto) 1.81 Differential Comment SCANNED PT 17.6 H INR 1.5 APTT 37.7 H Sodium 140 Potassium 3.5 Chloride 109 H Carbon Dioxide 27.0 Anion Gap 4 L BUN 10 Creatinine 0.83 Estim Creat Clear Calc 105.62 Est GFR (MDRD) Af Amer 121 Est GFR (MDRD) Non-Af 100 BUN/Creatinine Ratio 12.1 Glucose 90 Calcium 8.6 Total Bilirubin 1.50 H Direct Bilirubin 0.46 H AST 39 H ALT 30 Alkaline Phosphatase 177 H Total Protein 7.0 Albumin 2.9 L Globulin 4.1 Assessment/Plan All Active Problems Closed left hip fracture (Acute) Bullous pemphigoid (Acute) Strain of groin (Acute) The patient is a 63 year old M with a significant history of cirrhosis; hepatitis C; visual impairment; and venous stasis who presented to the emergency department with 2 to 3 days of blisters on his extremities; and face consistent with probable bullous pemphigoid. Probable bullous pemphigoid. Received prednisone 60 mg at the emergency department. We will continue patient on prednisone 40 mg daily. Adult failure to thrive Patient reports that he is unable to take care of himself. Patient is opened for a consideration of senior living to help for his upkeep. Previously he was at a senior living. PT and OT to evaluate the patient. Case management consult. Acute diarrhea We will order an enteric pathogen panel No IV fluids at this time since patient has bilateral lower extremity edema and is on Lasix. Depression/anxiety Prozac continued GERD Pepcid continued Venostasis Lasix continued Alex wrap to bilateral lower extremities. Oxycodone prn x 1 for pain as Tylenol was ineffective DVT prophylaxis Continues Lovenox ordered Code Visit OBSV E&M: [id number] Initial observation care L3
--- NOTE | 2019-01-04 22:01 | ED.DCSUM_ITS ---
History of Present Illness Chief Complaint: Cellulitis Detail of Chief Complaint: Bilateral leg swelling with blisters Informant: Patient Onset: - - 4 to 5 days Current Severity: Moderate Maximum Severity: Moderate Narrative: Patient reports bilateral lower extremity edema that is chronic. He states his legs are always red in color. Over the past 4 or 5 days he has noted fluid- filled blisters that started on the legs. He now has some lesions on his upper extremities and one on his face. He denies that the area is painful. - Past Medical History (1) Chronic obstructive lung disease Status: Chronic (2) Hepatic cirrhosis Status: Chronic (3) Hepatitis C Status: Chronic Past Medical History - Allergies and Home Meds Allergies/Adverse Reactions: Allergies ketorolac [From Toradol] Allergy (Verified 01/04/19 19:06) Hives morphine Adverse Reaction (Verified 01/04/19 19:06) Vomiting Primary Care Physician: Ric Coronado PA [Primary Care Provider] - Prior records reviewed: Yes Past Medical History: - - Reviewed Surgical History: appendectomy Smoking Status: Former smoker - Family History Maternal Family History: Reports: Unknown - Patient is adopted Review of Systems General: Denies: Chills, Fever Cardiovascular: Denies: Chest pain, Palpitations, Heart racing Respiratory: Denies: Dyspnea, Cough Gastrointestinal: Denies: Abdominal pain, Nausea, Vomiting Skin: Reports: Wounds Physical Exam Vital Signs/Narrative: Vital Signs Temp Pulse Resp BP Pulse Ox 01/04/19 21:50 75 15 174/74 H 98 01/04/19 19:38 98.1 F 71 17 153/76 H 97 01/04/19 19:06 98.1 F 78 16 159/75 H 98 General: Well nourished ENT: Moist mucous membranes Cardiovascular: Regular rate, Regular rhythm Respiratory: No distress, CTA bilaterally Abdomen: Soft, Normal bowel sounds, Tender, - - Mild upper abdominal tenderness palpation. No guarding or rebound. Active bowel sounds are noted. Skin: - - Bilateral lower extremity erythema and warmth. Patient has scattered fluid-filled blisters that appear consistent with bullous pemphigoid on the lower extremities as well as the upper extremities. Neurological: Alert, Oriented x3 Psychological: Normal affect Diagnostic/Tx/Re-eval Laboratory Results 01/04/19 01/04/19 01/04/19 20:16 20:16 20:16 WBC 8.9 RBC 3.98 L Hgb 10.5 L Hct 31.7 L MCV 79.6 L MCH 26.4 L MCHC 33.1 RDW 16.1 H RDW Differential 45.7 H Plt Count 278 MPV 11.3 Immature Gran % (Auto) 0.200 Neut % (Auto) 51.3 Lymph % (Auto) 20.3 [place] % (Auto) 21.1 H Eos % (Auto) 6.2 H Baso % (Auto) 0.9 Absolute Neuts (auto) 4.6 Absolute Lymphs (auto) 1.81 Differential Comment SCANNED PT 17.6 H INR 1.5 APTT 37.7 H Sodium 140 Potassium 3.5 Chloride 109 H Carbon Dioxide 27.0 Anion Gap 4 L BUN 10 Creatinine 0.83 Estim Creat Clear Calc 105.62 Est GFR (MDRD) Af Amer 121 Est GFR (MDRD) Non-Af 100 BUN/Creatinine Ratio 12.1 Glucose 90 Calcium 8.6 Total Bilirubin 1.50 H Direct Bilirubin 0.46 H AST 39 H ALT 30 Alkaline Phosphatase 177 H Total Protein 7.0 Albumin 2.9 L Globulin 4.1 - Medical Decision Making Patient's lesions appear to be consistent with bullous pemphigoid. He is given p.o. prednisone here. Because the patient has somewhat swelling and blisters to his feet he is having difficulty with ambulation. I recommended hospitalization overnight for initial treatment and repeat evaluation in the morning. Hospitalist on page at this time. ED Disposition - Plan for ED Patient: Disposition: Acute Care [facility] Diagnosis: Bullous pemphigoid Referrals: Ric Coronado PA [Primary Care Provider] -
[2019-01-04 23:11] VITALS: BP 167/91; PULSE 70; RESP 16; TEMP 36.2; O2SAT 96
[2019-01-04 23:15] VITALS: BMI 31.1
[2019-01-04 23:26] VITALS: BMI 31.1
[2019-01-05] MEDS: Acetaminophen 325 MG Tablet 650 MG PO ×2 (00:53→16:19)
[2019-01-05] MEDS: oxyCODONE 5 MG Tablet PO (01:30)
[2019-01-05 04:18] VITALS: BP 152/77; PULSE 73; RESP 16; TEMP 36.6; O2SAT 96
[2019-01-05 07:05] VITALS: O2SAT 95
[2019-01-05 08:31] VITALS: BP 166/83; PULSE 65; RESP 18; TEMP 36.4; O2SAT 97
[2019-01-05] MEDS: predniSONE 20 MG Tablet 40 MG PO (08:33)
[2019-01-05] MEDS: FLUoxetine 20 MG Capsule 40 MG PO (10:48)
[2019-01-05] MEDS: Famotidine 20 MG Tablet PO ×2 (10:48→21:55)
[2019-01-05] MEDS: Furosemide 20 MG Tablet PO (10:48)
[2019-01-05] MEDS: Enoxaparin 40 MG/0.4 ML Syringe SC (10:48)
[2019-01-05 10:50] VITALS: PULSE 76
--- NOTE | 2019-01-05 12:36 | CASEMGMT ---
RN CM Assessment Introduced role of RN CM to patient.? Patient is alert, oriented and able?to participate in RN CM Assessment. ?Care providers, pharmacy, and demographics verified. Presentation: BLE Edema- chronic, x4-5days fluid filled blisters and now has lesions on upper extremities and one on face. Admit Dx: Failure to Thrive Re-Admit: No. ER- 12/26/18 for Fall Barriers/Issues: Patient states lives alone, has not returned to his baseline since having his Lt hip fx in which he went to [facility], [place] and was DC'd in June 2018. States afraid of falling and does not use shower, has kept up on hygiene with wiping down and washing up in the sink. Denies wanting HHC and or Aide assistance with Waiver, is embarrassed how his home looks since he has not been able to upkeep as well. CM educated and encouraged patient to contact [facility] and ask for Sanitation Superintendent to assist with this if he changes his mind and also educated on safety in the home. States that he is 6'1 and his walker adjustment is too short, aware CM relay to primary CM to f/u to have PT or Nursing adjust to height. States has tried to use a Barstool in the shower but fell and Open to a Shower Chair d/t being scared and safety concerns. Also discussed Medical Alert Device and states that he would like one if Insurance will provide- Primary CM and SW updated on all of above. States d/t hip pain/back pain has not been in a car much since Hip Fx, Denies transportation issues and states [employer] transports, Made aware of [facility] providing transportation to appointments if needed and instructed to call number on his card if ever needing assistance, states he has used this in the past. 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 PCP: Kush Coronado Specialists: None Preferred Pharmacy: [facility] Insurance: [place] [facility] Rx Benefit:?Yes LNOK: Brother Jonas Hawk LW/HPOA: No, Declines offered information Living Arrangements:?Lives alone in a LL apartment, 1 step to enter. ADL?s: Independent, however recently has been needing to walk around house holding onto things. Independent with ADLs. [employer] does the Grocery Shopping. Transportation: Girlfriend Jannet DME: [employer] HHC: None SNF: [facility], [place], this is his preference if SNF needed again. States does not want to go to any other SNF as his Girlfriend cannot drive far distances. Goal: SNF- [facility], [place]. Walker Adjusted to height, Obtaining Shower Chair, Obtaining Medical Alert Device. Denies any further questions/concerns/issues with DC planning. Aware CM/SW remains available for any emerging needs. DC PLAN: Same as Goal. PATRICK Ann
--- NOTE | 2019-01-05 13:22 | CASEMGMT ---
Social Work Note SW received referral for SNF placement and pt's choice for SNF is [facility]. SW placed a call to Arianne at [facility]. Arianne states they are in network with pt's insurance. CHERYL faxed referral to [facility]. SW received call from Arianne at [facility] stating she is able to accept pt and will submit for pre-cert once PT/OT are available. CHERYL faxed PT/OT to [facility]. Plan: [facility] pending pre-cert Sara Espinal FILLING AND PACKING SUPERVISOR, MARKING MACHINE OPERATOR
[2019-01-05 16:14] VITALS: BP 129/61; PULSE 64; RESP 18; TEMP 36.6; O2SAT 98
--- NOTE | 2019-01-05 18:25 | PCM.PN.HOSP ---
Patient Problems: Active and Suspected Problems Bullous pemphigoid (Acute) Subjective: No issues overnight. No acute events Vitals/I&O's: Vital Signs Temp Pulse Resp BP Pulse Ox 97.8 F 64 18 129/61 H 98 01/05/19 16:14 01/05/19 16:14 01/05/19 16:14 01/05/19 16:14 01/05/19 16:14 Oxygen Delivery Method Room Air Weight: 235 lb 14.314 oz Body Mass Index (BMI) 31.1 Intake and Output for Last 24 Hours 01/03/19 01/04/19 01/05/19 23:59 23:59 23:59 Intake Total 1330 / 1330 Output Total 2760 / 2760 Balance -1430 / -1430 General: Alert, Oriented x3, Cooperative, No apparent distress HEENT: Atraumatic, EOMI, Normocephalic, - - Both eyes are cloudy he is blind Oral: Moist Mucosa Neck: Supple, No JVD Lungs: Clear to auscultation, Normal air movement, No rhonchi, No wheeze, No rales, Diminished Cardiovascular: Regular rate, Regular Rhythm, Normal S1, Normal S2, No murmurs Abdomen: Soft, Non Tender, Non-Distended, No Hepato-splenomegaly Extremities: No edema, Capillary Refill Less than 3 Seconds Skin: - - No bullous rashes seen today after steroids, he does have an erythematous rash on the palms of his hands and fingertips as well as on his arms and legs. He also has a what appears to be a lipoma on the mid back. Neurological: Neuro grossly intact, Sensory exam intact to light touch and pain Psych/Mental Status: Normal Affect, Appropriate Microbiology Past 72 Hours 01/05/19 08:00 Stool Enteric Bacteriology - Final Laboratory Results 01/04/19 20:16: WBC 8.9, RBC 3.98 L, Hgb 10.5 L, Hct 31.7 L, MCV 79.6 L, MCH 26.4 L, MCHC 33.1, RDW 16.1 H, RDW Differential 45.7 H, Plt Count 278, MPV 11.3, Immature Gran % (Auto) 0.200, Neut % (Auto) 51.3, Lymph % (Auto) 20.3, [place]ane % (Auto) 21.1 H, Eos % (Auto) 6.2 H, Baso % (Auto) 0.9, Absolute Neuts (auto) 4.6, Absolute Lymphs (auto) 1.81, Differential Comment SCANNED 01/04/19 20:16: PT 17.6 H, INR 1.5, APTT 37.7 H 01/04/19 20:16: Sodium 140, Potassium 3.5, Chloride 109 H, Carbon Dioxide 27.0, Anion Gap 4 L, BUN 10, Creatinine 0.83, Estim Creat Clear Calc 105.62, Est GFR (MDRD) Af Amer 121, Est GFR (MDRD) Non-Af 100, BUN/Creatinine Ratio 12.1, Glucose 90, Calcium 8.6, Total Bilirubin 1.50 H, Direct Bilirubin 0.46 H, AST 39 H, ALT 30, Alkaline Phosphatase 177 H, Total Protein 7.0, Albumin 2.9 L, Globulin 4.1 Current Medications Acetaminophen (Tylenol) 650 mg PO Q6H PRN PRN PRN Reason: Mild Pain (1-3)/Temp > 100.7 F Last Admin: 01/05/19 16:19 Dose: 650 mg Documented by: Artificial Tears (Tears Naturale, Artificial Tears) 2 drop EACH EYE DAILY [facility] Last Admin: 01/05/19 10:48 Dose: 2 drop Documented by: Dextrose (D50w Syringe) 0 gm IV X1 PRN; Protocol PRN Reason: Hypoglycemia Enoxaparin Sodium (Lovenox) 40 mg SC DAILY@1000 [facility] Last Admin: 01/05/19 10:48 Dose: 40 mg Documented by: Famotidine (Pepcid) 20 mg PO BID [facility] Last Admin: 01/05/19 10:48 Dose: 20 mg Documented by: Fluoxetine HCl (Prozac) 40 mg PO DAILY [facility] Last Admin: 01/05/19 10:48 Dose: 40 mg Documented by: Furosemide (Lasix) 20 mg PO DAILY [facility] Last Admin: 01/05/19 10:48 Dose: 20 mg Documented by: Glucagon () 1 mg IM .X1 PRN PRN Reason: Hypoglycemia Hydroxyzine Pamoate (Vistaril Pamoate Capsule) 25 mg PO DAILY@2200 [facility] Ondansetron HCl (Zofran) 4 mg IV Q8H PRN PRN PRN Reason: NAUSEA/VOMITING Prednisone () 40 mg PO DAILY@0800 [facility] Last Admin: 01/05/19 08:33 Dose: 40 mg Documented by: Sodium Chloride () 10 - 40 ml IV UD PRN PRN Reason: SALINE FLUSH Medical Necessity - Tobacco Use Smoking Status: Former smoker Tobacco Use: Non-smoker Assessment/Plan All Active Problems Closed left hip fracture (Acute) Bullous pemphigoid (Acute) Strain of groin (Acute) 1. Bullous pemphigoid -There are no bulla today on exam given the usage of steroids -Continue with the steroids and monitor for continued improvement -Unsure as to the cause of his bullous pemphigoid he is not on significant medications that would cause it, could be secondary to hep C and/or his cirrhosis 2. Adult failure to thrive -He lives home alone and is unable to take care of himself -He is unable to perform activities of daily living -[facility] [place] [facility] and would not be opposed to going back 3. Acute diarrhea -Enteric pathogen studies are negative -No reason to suspect C. difficile -We will continue to monitor 4. Depression/anxiety -Stable -Continue with Prozac 5. GERD -Stable -Continue with Pepcid 6. Venous stasis with edema -Continue with his Lasix -Alex wrap both lower extremities DVT: Lovenox Code Visit OBSV E&M: 88074 Subsequent observation care L2
[2019-01-05] MEDS: hydrOXYzine PAM 25 MG Capsule PO (21:55)
[2019-01-05 21:57] VITALS: BP 132/46; PULSE 72; RESP 16; TEMP 36.4; O2SAT 98
[2019-01-06] MEDS: 0.9% NaCl Peripheral Flush Adult/Peds IV (01:26)
[2019-01-06 01:32] VITALS: BP 135/53; PULSE 80; RESP 16; TEMP 36.6; O2SAT 96
[2019-01-06 08:10] VITALS: BP 168/80; PULSE 79; RESP 18; TEMP 37.1; O2SAT 98
[2019-01-06] MEDS: Acetaminophen 500 MG Tablet 1000 MG PO ×2 (08:13→16:10)
[2019-01-06] MEDS: predniSONE 20 MG Tablet 40 MG PO (08:14)
--- NOTE | 2019-01-06 08:14 | PN_ITS ---
Patient Problems: Active and Suspected Problems Bullous pemphigoid (Acute) Subjective: Itching is much improved with the steroids Vitals/I&O's: Vital Signs Temp Pulse Resp BP Pulse Ox 98.7 F 79 18 168/80 H 98 01/06/19 08:10 01/06/19 08:10 01/06/19 08:10 01/06/19 08:10 01/06/19 08:10 Oxygen Delivery Method Room Air Weight: 235 lb 14.314 oz Body Mass Index (BMI) 31.1 Intake and Output for Last 24 Hours 01/04/19 01/05/19 01/06/19 23:59 23:59 23:59 Intake Total 1330 / 1330 Output Total 2760 / 2760 775 / 775 Balance -1430 / -1430 -775 / -775 General: Alert, Oriented x3, Cooperative, No apparent distress HEENT: Atraumatic, EOMI, Normocephalic, - - Both eyes are cloudy he is blind Oral: Moist Mucosa Neck: Supple, No JVD Lungs: Clear to auscultation, Normal air movement, No rhonchi, No wheeze, No rales, Diminished Cardiovascular: Regular rate, Regular Rhythm, Normal S1, Normal S2, No murmurs Abdomen: Soft, Non Tender, Non-Distended, No Hepato-splenomegaly Extremities: No edema, Capillary Refill Less than 3 Seconds Skin: - - No bullous rashes seen today after steroids, he does have an erythematous rash on the palms of his hands and fingertips as well as on his arms and legs. He also has a what appears to be a lipoma on the mid back. Neurological: Neuro grossly intact, Sensory exam intact to light touch and pain Psych/Mental Status: Normal Affect, Appropriate Microbiology Past 72 Hours 01/05/19 08:00 Stool Enteric Bacteriology - Final Current Medications Acetaminophen (Tylenol) 1,000 mg PO Q8H PRN PRN PRN Reason: PAIN Artificial Tears (Tears Naturale, Artificial Tears) 2 drop EACH EYE DAILY [facility] Last Admin: 01/05/19 10:48 Dose: 2 drop Documented by: Dextrose (D50w Syringe) 0 gm IV X1 PRN; Protocol PRN Reason: Hypoglycemia Enoxaparin Sodium (Lovenox) 40 mg SC DAILY@1000 [facility] Last Admin: 01/05/19 10:48 Dose: 40 mg Documented by: Famotidine (Pepcid) 20 mg PO BID [facility] Last Admin: 01/05/19 21:55 Dose: 20 mg Documented by: Fluoxetine HCl (Prozac) 40 mg PO DAILY [facility] Last Admin: 01/05/19 10:48 Dose: 40 mg Documented by: Furosemide (Lasix) 20 mg PO DAILY [facility] Last Admin: 01/05/19 10:48 Dose: 20 mg Documented by: Glucagon () 1 mg IM .X1 PRN PRN Reason: Hypoglycemia Hydroxyzine Pamoate (Vistaril Pamoate Capsule) 25 mg PO DAILY@2200 [facility] Last Admin: 01/05/19 21:55 Dose: 25 mg Documented by: Ondansetron HCl (Zofran) 4 mg IV Q8H PRN PRN PRN Reason: NAUSEA/VOMITING Prednisone () 40 mg PO DAILY@0800 [facility] Last Admin: 01/05/19 08:33 Dose: 40 mg Documented by: Sodium Chloride () 10 - 40 ml IV UD PRN PRN Reason: SALINE FLUSH Last Admin: 01/06/19 01:26 Dose: 10 ml Documented by: Medical Necessity - Tobacco Use Smoking Status: Former smoker Tobacco Use: Non-smoker Assessment/Plan All Active Problems Closed left hip fracture (Acute) Bullous pemphigoid (Acute) Strain of groin (Acute) 1. Bullous pemphigoid versus dyshidrotic eczema -There are no bulla today on exam given the usage of steroids -Continue with the steroids and monitor for continued improvement -The location of his rash on the palms of his hands and he says on the soles of his feet, I suspect this might also just be dyshidrotic eczema. We will continue with his steroids and we have a jail placement will discharge him later today. Would recommend having follow-up with a process control operator as an outpatient. 2. Adult failure to thrive -He lives home alone and is unable to take care of himself -He is unable to perform activities of daily living -Is lived in the jail in the past and would not be opposed to going back 3. Acute diarrhea-resolved -Enteric pathogen studies are negative -No reason to suspect C. difficile -We will continue to monitor 4. Depression/anxiety -Stable -Continue with Prozac 5. GERD -Stable -Continue with Pepcid 6. Venous stasis with edema -Continue with his Lasix -Alex wrap both lower extremities DVT: Lovenox Code Visit OBSV E&M: 63927 Subsequent observation care L2
[2019-01-06 08:19] VITALS: O2SAT 93
[2019-01-06 09:06] VITALS: BP 164/70; PULSE 70; RESP 18; TEMP 37; O2SAT 96
[2019-01-06] MEDS: Enoxaparin 40 MG/0.4 ML Syringe SC (10:02)
[2019-01-06] MEDS: Furosemide 20 MG Tablet PO (10:03)
[2019-01-06] MEDS: Famotidine 20 MG Tablet PO ×2 (10:03→22:00)
[2019-01-06] MEDS: FLUoxetine 20 MG Capsule 40 MG PO (10:03)
--- NOTE | 2019-01-06 13:31 | CASEMGMT ---
Addendum entered by Sara Espinal 01/06/19 15:54: SW updated pt on acceptance to [facility] pending pre-cert. Addendum entered by Sara Espinal 01/06/19 14:59: SW placed a call to Arianne at [facility] and left message asking about pt's pre-cert. SW waiting for call back. Original Note: Social Work Note CHERYL faxed updated clinicals to Arianne at [facility]. Plan: [facility] pending pre-cert Sara Espinal GYM TEACHER, PROSTHETIC TECHNICIAN
[2019-01-06 14:41] VITALS: BP 157/74; PULSE 71; RESP 18; TEMP 36.8; O2SAT 95
[2019-01-06 21:45] VITALS: BP 154/69; PULSE 73; RESP 16; TEMP 36.7; O2SAT 100
[2019-01-06] MEDS: hydrOXYzine PAM 25 MG Capsule PO (22:00)
[2019-01-07 03:45] VITALS: BP 148/78; PULSE 76; RESP 16; TEMP 36.7; O2SAT 95
[2019-01-07 06:13] LABS: Anion Gap 7 (5-15); BUN 14 mg/dL (7-18); BUN/Creat Ratio 18.9 RATIO (10-20); Calcium,Total 8.5 mg/dL (8.5-10.1); Chloride 110 mmol/L (98-107); Creatinine, Serum 0.74 mg/dL (0.70-1.30); EST Glomerular Filtration Rate 114 mL/min (>60); Est Glom Filt Rate - Afr Amer 138 mL/min (>60); Estimated Creatinine Clearance 118.47 ml/min; Glucose 85 mg/dL (74-106); Potassium 3.4 mmol/L (3.5-5.1); Sodium Level 143 mmol/L (136-145)
[2019-01-07 06:45] LABS: Absolute Lymphocyte Count 2.38 X10^3/uL (0.83-4.51); Basophil# 0.09 X10^3/uL; Basophil% 0.8 % (0-1); Eosinophil# 0.45 X10^3/uL; Eosinophils% 3.8 % (0-5); Hematocrit 32.2 % (40-54); Hemoglobin 10.6 g/dL (13.0-16.5); Lymphocyte # 2.38 X10^3/ul (4.0); Lymphocyte % 20.2 % (19-41); Mean Corp Hgb Conc 32.9 g/dL (32-36); Mean Corpuscular Hgb 26.8 pg (27.0-32.0); Mean Corpuscular Volume 81.3 fL (80-94); Mean Platelet Vol. 11.3 fl (6.2-12.0); Monocyte# 1.84 X10^3/uL; Monocyte% 15.6 % (0-10); NRBC Flagged by Analyzer 0 % (0-5); Neutrophil # 6.98 X10^3/uL (2.7-7.7); Neutrophil % 59.2 % (47-70); POSITIVE DIFFERENTIAL YES; Platelet Count 296 K/mm3 (150-450); RBC Distribution Width SD 47.5 fl (35.1-43.9); Red Blood Count 3.96 M/mm3 (4.6-6.2); White Blood Count 11.8 K/mm3 (4.4-11.0)
[2019-01-07 07:01] LABS: Differential Indicated SCAN CRITERIA MET
[2019-01-07 07:58] LABS: Differential Comment SCANNED; Platelet Estimate ADEQUATE (ADEQ)
[2019-01-07 07:59] LABS: Anisocytosis 1+; Target Cells RARE
--- NOTE | 2019-01-07 08:07 | PN_ITS ---
Patient Problems: Active and Suspected Problems Bullous pemphigoid (Acute) Subjective: The itching is much better, and the blisters have improved significantly. He still complaining of right ankle pain which is been going on for several years, likely related to the swelling from the venous stasis. He has had some improvement with wrapping. Vitals/I&O's: Vital Signs Temp Pulse Resp BP Pulse Ox 98.1 F 76 16 148/78 H 95 01/07/19 03:45 01/07/19 03:45 01/07/19 03:45 01/07/19 03:45 01/07/19 03:45 Oxygen Delivery Method Room Air Weight: 235 lb 14.314 oz Body Mass Index (BMI) 31.1 Intake and Output for Last 24 Hours 01/05/19 01/06/19 01/07/19 23:59 23:59 23:59 Intake Total 1330 / 1330 1080 / 1880 1000 / 1000 Output Total 2760 / 2760 2025 / 2300 775 / 775 Balance -1430 / -1430 -945 / -420 225 / 225 General: Alert, Oriented x3, Cooperative, No apparent distress HEENT: Atraumatic, EOMI, Normocephalic, - - Both eyes are cloudy he is blind Oral: Moist Mucosa Neck: Supple, No JVD Lungs: Clear to auscultation, Normal air movement, No rhonchi, No wheeze, No rales, Diminished Cardiovascular: Regular rate, Regular Rhythm, Normal S1, Normal S2, No murmurs Abdomen: Soft, Non Tender, Non-Distended, No Hepato-splenomegaly Extremities: No edema, Capillary Refill Less than 3 Seconds Skin: - - No bullous rashes seen today after steroids, he does have an erythematous rash on the palms of his hands and fingertips as well as on his arms and legs. He also has a what appears to be a lipoma on the mid back. Neurological: Neuro grossly intact, Sensory exam intact to light touch and pain Psych/Mental Status: Normal Affect, Appropriate Microbiology Past 72 Hours 01/05/19 08:00 Stool Enteric Bacteriology - Final Laboratory Results 01/07/19 05:40: WBC 11.8 H, RBC 3.96 L, Hgb 10.6 L, Hct 32.2 L, MCV 81.3, MCH 26.8 L, MCHC 32.9, RDW Std Deviation 47.5 H, RDW Coeff of Dave 16.0 H, Plt Count 296, MPV 11.3, Immature Gran % (Auto) 0.400, Neut % (Auto) 59.2, Lymph % (Auto) 20.2, [place] % (Auto) 15.6 H, Eos % (Auto) 3.8, Baso % (Auto) 0.8, Absolute Neuts (auto) 7.0, Absolute Lymphs (auto) 2.38, Absolute Nucleated RBC 0.00, Nucleated RBC % 0, Differential Comment SCANNED, Diff Path Review October foll, Platelet Estimate ADEQUATE, Anisocytosis 1+, Target Cells RARE 01/07/19 05:40: Sodium 143, Potassium 3.4 L, Chloride 110 H, Carbon Dioxide 26.0, Anion Gap 7, BUN 14, Creatinine 0.74, Estim Creat Clear Calc 118.47, Est GFR (MDRD) Af Amer 138, Est GFR (MDRD) Non-Af 114, BUN/Creatinine Ratio 18.9, Glucose 85, Calcium 8.5 Current Medications Acetaminophen (Tylenol) 1,000 mg PO Q8H PRN PRN PRN Reason: PAIN Last Admin: 01/06/19 16:10 Dose: 1,000 mg Documented by: Artificial Tears (Tears Naturale, Artificial Tears) 2 drop EACH EYE DAILY [facility] Last Admin: 01/06/19 10:03 Dose: 2 drop Documented by: Dextrose (D50w Syringe) 0 gm IV X1 PRN; Protocol PRN Reason: Hypoglycemia Enoxaparin Sodium (Lovenox) 40 mg SC DAILY@1000 [facility] Last Admin: 01/06/19 10:02 Dose: 40 mg Documented by: Famotidine (Pepcid) 20 mg PO BID [facility] Last Admin: 01/06/19 22:00 Dose: 20 mg Documented by: Fluoxetine HCl (Prozac) 40 mg PO DAILY [facility] Last Admin: 01/06/19 10:03 Dose: 40 mg Documented by: Furosemide (Lasix) 20 mg PO DAILY [facility] Last Admin: 01/06/19 10:03 Dose: 20 mg Documented by: Glucagon () 1 mg IM .X1 PRN PRN Reason: Hypoglycemia Hydroxyzine Pamoate (Vistaril Pamoate Capsule) 25 mg PO DAILY@2200 [facility] Last Admin: 01/06/19 22:00 Dose: 25 mg Documented by: Ondansetron HCl (Zofran) 4 mg IV Q8H PRN PRN PRN Reason: NAUSEA/VOMITING Oxycodone HCl (Oxyir) 5 mg PO X1 ONE Stop: 01/07/19 08:07 Potassium Chloride (K-Dur) 40 meq PO X1 ONE Stop: 01/07/19 08:06 Prednisone () 40 mg PO DAILY@0800 [facility] Last Admin: 01/06/19 08:14 Dose: 40 mg Documented by: Sodium Chloride () 10 - 40 ml IV UD PRN PRN Reason: SALINE FLUSH Last Admin: 01/06/19 01:26 Dose: 10 ml Documented by: Medical Necessity - Tobacco Use Smoking Status: Former smoker Tobacco Use: Non-smoker Assessment/Plan All Active Problems Closed left hip fracture (Acute) Bullous pemphigoid (Acute) Strain of groin (Acute) 1. Bullous pemphigoid versus dyshidrotic eczema -There are no bulla today on exam given the usage of steroids -Continue with the steroids and monitor for continued improvement -The location of his rash on the palms of his hands and he says on the soles of his feet, I suspect this might also just be dyshidrotic eczema. We will continue with his steroids and we have a correction placement will discharge him later today. Would recommend having follow-up with a communications field technician as an outpatient. 2. Adult failure to thrive -He lives home alone and is unable to take care of himself -He is unable to perform activities of daily living -Is lived in the correction in the past and would not be opposed to going back 3. Acute diarrhea-resolved -Enteric pathogen studies are negative -No reason to suspect C. difficile -We will continue to monitor 4. Depression/anxiety -Stable -Continue with Prozac 5. GERD -Stable -Continue with Pepcid 6. Venous stasis with edema -Continue with his Lasix -Alex wrap both lower extremities -I was not effective for his right foot pain, will give a single dose of oxycodone 5 mg DVT: Lovenox Code Visit OBSV E&M: [id number] Subsequent observation care L2
[2019-01-07 08:35] VITALS: BP 97/53; PULSE 65; RESP 18; TEMP 36.6; O2SAT 95
[2019-01-07] MEDS: predniSONE 20 MG Tablet 40 MG PO (08:40)
[2019-01-07] MEDS: Enoxaparin 40 MG/0.4 ML Syringe SC (08:40)
[2019-01-07] MEDS: Famotidine 20 MG Tablet PO ×2 (08:40→21:20)
[2019-01-07] MEDS: Furosemide 20 MG Tablet PO (08:40)
[2019-01-07] MEDS: FLUoxetine 20 MG Capsule 40 MG PO (08:40)
[2019-01-07] MEDS: oxyCODONE 5 MG Tablet PO (09:07)
--- NOTE | 2019-01-07 10:03 | CASEMGMT ---
Addendum entered by Sara Espinal 01/07/19 13:27: CHERYL faxed updated clinicals to [facility]. Original Note: Social Work Note SW spoke luis alberto Acuña at [facility] and asked about pre-cert. Arianne states she hasn't heard anything yet but will update this worker when she does. CHERYL will fax updated clinicals when available. Plan: [facility] pending pre-cert Sara Espinal SALES REPRESENTATIVE WIRE ROPE, SEED PELLETER
[2019-01-07 11:04] VITALS: O2SAT 97
[2019-01-07 14:24] VITALS: BP 131/67; PULSE 72; RESP 18; TEMP 36.9; O2SAT 97
--- NOTE | 2019-01-07 14:48 | NURSING ---
wound photo: left foot/ankle
--- NOTE | 2019-01-07 14:49 | NURSING ---
wound photo: right foot/ankle
[2019-01-07 15:28] LABS: Pathologist Review Reviewed
[2019-01-07 20:23] VITALS: BP 145/74; PULSE 76; RESP 16; TEMP 36.8; O2SAT 96
[2019-01-07] MEDS: hydrOXYzine PAM 25 MG Capsule PO (21:20)
[2019-01-08 02:16] VITALS: BP 144/77; PULSE 82; RESP 16; TEMP 36.7; O2SAT 92
--- NOTE | 2019-01-08 09:32 | CASEMGMT ---
Social Work Note SW faxed updated clinicals to [facility]. Plan: [facility] pending pre-cert Sara Espinal CLINICAL OPERATIONS LEADER, PNEUMATIC TOOL REPAIRER
--- NOTE | 2019-01-08 09:51 | PCM.PN.HOSP ---
Patient Problems: Active and Suspected Problems Bullous pemphigoid (Acute) Subjective: Itching is pre-much resolved, he still has intermittent lower extremity pain though it is less today he did received 1 dose of oxycodone yesterday. This has been going on for several years. And it did improve with some wrapping. Vitals/I&O's: Vital Signs Temp Pulse Resp BP Pulse Ox 98.1 F 82 16 144/77 H 92 01/08/19 02:16 01/08/19 02:16 01/08/19 02:16 01/08/19 02:16 01/08/19 02:16 Oxygen Delivery Method Room Air Weight: 235 lb 14.314 oz Body Mass Index (BMI) 31.1 Intake and Output for Last 24 Hours 01/06/19 01/07/19 01/08/19 23:59 23:59 23:59 Intake Total 1080 / 1880 1970 / 2570 860 / 860 Output Total 2024 / 0 1585 / 2760 2825 / 2825 Balance -945 / -420 385 / -190 -1965 / -1965 General: Alert, Oriented x3, Cooperative, No apparent distress HEENT: Atraumatic, EOMI, Normocephalic, - - Both eyes are cloudy he is blind Oral: Moist Mucosa Neck: Supple, No JVD Lungs: Clear to auscultation, Normal air movement, No rhonchi, No wheeze, No rales, Diminished Cardiovascular: Regular rate, Regular Rhythm, Normal S1, Normal S2, No murmurs Abdomen: Soft, Non Tender, Non-Distended, No Hepato-splenomegaly Extremities: No edema, Capillary Refill Less than 3 Seconds Skin: - - No bullous rashes seen today after steroids, he does have an erythematous rash on the palms of his hands and fingertips as well as on his arms and legs. He also has a what appears to be a lipoma on the mid back. The rash is improving Neurological: Neuro grossly intact, Sensory exam intact to light touch and pain Psych/Mental Status: Normal Affect, Appropriate Microbiology Past 72 Hours 01/05/19 08:00 Stool Enteric Bacteriology - Final Laboratory Results 01/07/19 05:40: Diff Path Review Reviewed Current Medications Acetaminophen (Tylenol) 1,000 mg PO Q8H PRN PRN PRN Reason: PAIN Last Admin: 01/06/19 16:10 Dose: 1,000 mg Documented by: Artificial Tears (Tears Naturale, Artificial Tears) 2 drop EACH EYE DAILY [facility] Last Admin: 01/07/19 08:40 Dose: 2 drop Documented by: Dextrose (D50w Syringe) 0 gm IV X1 PRN; Protocol PRN Reason: Hypoglycemia Enoxaparin Sodium (Lovenox) 40 mg SC DAILY@1000 [facility] Last Admin: 01/07/19 08:40 Dose: 40 mg Documented by: Famotidine (Pepcid) 20 mg PO BID [facility] Last Admin: 01/07/19 21:20 Dose: 20 mg Documented by: Fluoxetine HCl (Prozac) 40 mg PO DAILY [facility] Last Admin: 01/07/19 08:40 Dose: 40 mg Documented by: Furosemide (Lasix) 20 mg PO DAILY [facility] Last Admin: 01/07/19 08:40 Dose: 20 mg Documented by: Glucagon () 1 mg IM .X1 PRN PRN Reason: Hypoglycemia Hydroxyzine Pamoate (Vistaril Pamoate Capsule) 25 mg PO DAILY@2200 [facility] Last Admin: 01/07/19 21:20 Dose: 25 mg Documented by: Ondansetron HCl (Zofran) 4 mg IV Q8H PRN PRN PRN Reason: NAUSEA/VOMITING Prednisone () 40 mg PO DAILY@0800 [facility] Last Admin: 01/07/19 08:40 Dose: 40 mg Documented by: Sodium Chloride () 10 - 40 ml IV UD PRN PRN Reason: SALINE FLUSH Last Admin: 01/06/19 01:26 Dose: 10 ml Documented by: Medical Necessity - Tobacco Use Smoking Status: Former smoker Tobacco Use: Non-smoker Assessment/Plan All Active Problems Closed left hip fracture (Acute) Bullous pemphigoid (Acute) Strain of groin (Acute) 1. Bullous pemphigoid versus dyshidrotic eczema -There are no bulla today on exam given the usage of steroids -Continue with the steroids and monitor for continued improvement -The location of his rash on the palms of his hands and he says on the soles of his feet, I suspect this might also just be dyshidrotic eczema. We will continue with his steroids. Would recommend having follow-up with a perishable fruit inspector as an outpatient. 2. Adult failure to thrive -He lives home alone and is unable to take care of himself -He is unable to perform activities of daily living -Is lived in the detention in the past and would not be opposed to going back 3. Acute diarrhea-resolved -Enteric pathogen studies are negative -No reason to suspect C. difficile -We will continue to monitor 4. Depression/anxiety -Stable -Continue with Prozac 5. GERD -Stable -Continue with Pepcid 6. Venous stasis with edema -Continue with his Lasix -Alex wrap both lower extremities -A single dose of oxycodone 5 mg relieved his pain, he is now complaining of pain today. DVT: Lovenox Code Visit OBSV E&M: [id number] Subsequent observation care L2
--- NOTE | 2019-01-08 10:21 | PCM.TXEXTCAR ---
- Diet 01/04/19 23:34 Diet: Cardiac/Low Cholesterol Food consistency:: Regular Liquid Consistency:: Regular/Thin - Routine Orders/Code Status Code Status: Full Code - Wound(s) BILAT FEET Wound Type: scattered small fluid filled blisters Dressing Change: Adaptic LFA Wound Type: SCATTERED SCABS - Therapies Physical Therapy: Eval and Treat Occupational Therapy: Eval and Treat - Allergies/Procedures Done in Hospital Allergies/Adverse Reactions: Allergies ketorolac [From Toradol] Allergy (Verified 01/04/19 19:06) Hives morphine Adverse Reaction (Verified 01/04/19 19:06) Vomiting - Type of Care/Length of Stay Estimated LOS: Convalescent Care Less Than 30 days Type of Care Needed: Skilled Rehab Potential: Good Prognosis: Good - Additional Orders/Day of Discharge Day of Discharge: 01/08/19 - Follow Up Care Primary Care Physician: Ric Coronado PA [Primary Care Provider] - Please follow up with your Primary Care Physician in: 3-5 days Please Follow Up With: Dermatology
[2019-01-08] MEDS: Famotidine 20 MG Tablet PO (10:41)
[2019-01-08] MEDS: predniSONE 20 MG Tablet 40 MG PO (10:41)
[2019-01-08] MEDS: FLUoxetine 20 MG Capsule 40 MG PO (10:41)
[2019-01-08] MEDS: Furosemide 20 MG Tablet PO (10:41)
[2019-01-08] MEDS: Enoxaparin 40 MG/0.4 ML Syringe SC (10:41)
[2019-01-08 10:52] VITALS: BP 136/64; PULSE 87; RESP 18; TEMP 37.1; O2SAT 97
--- NOTE | 2019-01-08 11:15 | PCM.DC.SUM ---
Discharge Date and Diagnosis - Problem List Patient Problems: Active and Suspected Problems Bullous pemphigoid (Acute) Date of Admission: 01/04/19 Date of Discharge: 01/08/19 - Primary Discharge Diagnosis Active and Suspected Problems Bullous pemphigoid (Acute) - Secondary Discharge Diagnosis Chronic Problems Hepatitis C (Chronic) Hepatic cirrhosis (Chronic) Chronic obstructive lung disease (Chronic) Hospital Course and Treatment Imaging Results: None Consultations 01/05/19 23:02 Consult: Onc/Wound/javascript programmer Routine Comment: Reason for Consult:: katie lower ext edema,redness, blisters some open Operations: None Procedures: None Summary of Care Provided: Per HPI:The patient is a 63 year old M with a significant history of cirrhosis; hepatitis C; visual impairment; and venous stasis who presented to the emergency department with 2 to 3 days of blisters on his extremities; and face. At the emergency department patient was given steroids for probable bullous pemphigoid. Also patient complained of a 10-day history of diarrhea. Hospital Course: 1. Adult failure to thrive with inability to complete ADLs at home/dyshidrotic eczema possible bullous [id number]-old male who came in with a history of cirrhosis and hepatitis C as well as visual impairment presented to the ER with 2 to 3 days of blisters on his extremities and face. Of note these were confirmed mostly confined to palms and soles of his feet that they were on his forearms and his legs. He was given a dose of steroids in the ER and then was continued on oral steroids in the hospital. He has had significant improvement with his blistering and the itchiness of his rash. Unfortunately there is no dermatology that can see the patient here in the hospital and given his improvement in his symptoms with steroids we felt that he would be able to be seen as an outpatient. He also has been unable to take care of himself at home and unable to perform his activities of daily living given his weakness and his inability to see. Case management was consulted to help with discharge planning, and he was accepted to a detention facility for further therapy and assistance. Would recommend that he see a textile technical officer as an outpatient from the facility and to continue the steroids for 7 more days. 2. Acute diarrhea-prior to admission he said that he had had 10 days of diarrhea, however he has had normally formed stools here and his enteric pathogen panel was negative. No reason to suspect this being C. difficile, and at the moment it has completely resolved. 3. Right ankle pain/venous stasis with edema-he is on Lasix at home for his venous stasis and his legs have been wrapped with Alex wrap here which we recommend continue at the detention facility. Also we had our wound care nurse evaluate the patient to continue with any needs that may arise. He did receive a single dose of oxycodone on the day prior to discharge which seems to have resolved his pain and he was not complaining of pain on the day of discharge. 4. His other medical diagnoses were evaluated and his home medications were continued where appropriate Patient Problems: Active and Suspected Problems Bullous pemphigoid (Acute) - Physical Exam Vital Signs Temp Pulse Resp BP Pulse Ox 98.7 F 87 18 136/64 H 97 01/08/19 10:52 01/08/19 10:52 01/08/19 10:52 01/08/19 10:52 01/08/19 10:52 Oxygen Delivery Method Room Air Weight: 235 lb 14.314 oz Body Mass Index (BMI) 31.1 Intake and Output for Last 24 Hours 01/06/19 01/07/19 01/08/19 23:59 23:59 23:59 Intake Total 1080 / 1880 1970 / 2570 860 / 860 Output Total 5 / 0 1585 / 2760 2825 / 2825 Balance -945 / -420 385 / -190 -1965 / -1965 Microbiology Past 72 Hours 01/05/19 08:00 Enteric Bacteriology - Final Stool Laboratory Tests Past 24 Hrs 01/07/19 05:40 Diff Path Review Reviewed Home Medications: Medications to take at Discharge Hydroxyzine HCl 25 - 50 mg PO DAILY 05/15/18 Fluoxetine HCl 40 mg PO DAILY 05/22/18 Polyvinyl Alcohol [Artificial Tears] 2 drop EACH EYE DAILY 05/22/18 Furosemide [Lasix] 20 mg PO DAILY 01/04/19 Ranitidine HCl 150 mg PO BID 01/04/19 predniSONE tablet 40 mg PO DAILY@0800 tab 01/08/19 Primary Care Physician: Ric Coronado PA [Primary Care Provider] - Please follow up with your Primary Care Physician in: 3-5 days Please Follow Up With: Dermatology Disposition: Long-Term facility Minutes spent on discharge:: 35 Patient Condition:: Good Medical Necessity - Tobacco Use Smoking Status: Former smoker Tobacco Use: Non-smoker Meaningful Use Info Meaningful Use Diagnoses (Choose all that apply): None applicable Code Visit OBSV E&M: 68961 Observation care discharge
--- NOTE | 2019-01-08 11:48 | CASEMGMT ---
Social Work Note SW received call from Arianne at [facility] stating pre-cert has been obtained and pt is able to discharge to [facility] today. Physician updated. CHERYL faxed completed discharge paperwork to Arianne at [facility] including transfer to extended care facility, signed medication list and any scripts. Original in SNF folder and copy on pt's chart. CHERYL completed PAS/RR in HENS. Original in SNF folder and copy on pt's chart. SW in to update pt on approval to go to SNF. CHERYL asked pt about transportation. Pt states that he was informed that ambulance could be arranged. SW informed pt that he doesn't qualify for ambulance transportation and this worker is not sure if a wheelchair van is available. SW informed pt that this worker will try to arrange transportation. CHERYL placed a call to [facility], no wheelchair vans are available. CHERYL placed a call to [facility] and no wheelchair vans are available. CHERYL placed a call to [facility] and their transportation is not available today. CHERYL placed a call to pt's insurance [place]. CHERYL spoke with Hyacinth at [place] who states they are able to transport but they don't have any wheelchairs and pt will need to be transported via vehicle. CHERYL reviewed PT/OT pt walked contact guard should be able to get in and out of vehicle. Hyacinth informed this worker that trip is scheduled and once a transportation company is available she will call this worker to update this worker. CHERYL updated pt and RN that pt will need to use wheelchair to go down to front entrance once transportation arrives and then [facility] can have wheelchair van ready to transport pt from car to room at [facility]. Pt states understanding. CHERYL received call from [facility] (Aleksandra Rides?) is able to transport pt and will be at [facility] within the hour. Hyacinth states pt will need to be ready and be out the door shortly after the vehicle arrives. [employer] will call this worker once they arrive to front entrance to transport pt. CHERYL updated RN, administrative secretary that transportation could arrive any minute for pt and to have pt ready. RN to get pt ready. CHERYL placed a call to Arianne at [facility] and updated her that pt's transportation could arrive any minute and that this worker is not sure when it will arrive but that this worker can call Arianne once it arrives so they know when pt is being transported. Arianne states understanding. SW waiting for call from transportation company when they arrive to [facility] to transport pt. Plan: Pt to discharge to [facility] today skilled with pt's insurance company arranging transportation for pt. Sara Espinal FRAME TABLE OPERATOR HELPER, HAIR DRESSER
--- NOTE | 2019-01-08 12:50 | NURSING ---
Report called to Sangita ROBLES at [facility] at this time.
--- NOTE | 2019-01-08 13:40 | CASEMGMT ---
Social Work Note Pt's ride is at [facility] to transport pt. CHERYL placed a call to Arianne at [facility] and updated her on this. CHERYL asked Arianne to have wheelchair available to assist pt with getting pt from car to room. Arianne states she is able to relay this message. Sara Espinal CYCLE ANALYST, MARINE STEWARD
== END 2019-01-08 13:45 | disposition skilled nursing facility (03) ==
LOC: ED 22:03 → MS3 22:33
PROVIDERS: Admitting Provider Hospitalist; Emergency Provider Emergency Medicine; Family Provider Physician Assistant; PCP Physician Assistant; Referring Provider Hospitalist; Visit Provider Family Medicine
DX: L12.0 Bullous pemphigoid (principal); K74.60 Unspecified cirrhosis of liver; H54.7 Unspecified visual loss; J44.9 Chronic obstructive pulmonary disease, unspecified; B18.2 Chronic viral hepatitis C; F41.9 Anxiety disorder, unspecified; F32.9 Major depressive disorder, single episode, unspecified; Z79.899 Other long term (current) drug therapy; Z87.891 Personal history of nicotine dependence; K21.9 Gastro-esophageal reflux disease without esophagitis; R62.7 Adult failure to thrive; Z68.31 Body mass index [BMI] 31.0-31.9, adult; I87.8 Other specified disorders of veins; R60.0 Localized edema; R19.7 Diarrhea, unspecified; M25.571 Pain in right ankle and joints of right foot
CPT/HCPCS: 36415; 80048; 80076; 85025; 85610; 85730; 87506; 96372; 97163; 97166; 97530; 97535; 99218; 99283; A4216; G0378

== ENCOUNTER 2019-04-26 19:46 | Emergency (ER) | payer MEDICAID, SELFPAY ==
[2019-04-26] VITALS (7 sets, daily range): BP systolic 124–158; BP diastolic 94–114; PULSE 123–185; RESP 13–28; TEMP 35.6–37; O2SAT 81–99; BMI 30.7
[2019-04-26] MEDS: Rocuronium Bromide 50 MG/5 ML Vial 60 MG IV (19:56)
[2019-04-26] MEDS: 0.9% Normal Saline 1,000 ML 999 ML IV ×3 (19:57→20:35)
--- NOTE | 2019-04-26 19:58 | CT_ITS ---
We are attempting to reach an attending provider to discuss findings. An addendum with communication details will be sent when the communication is complete. STUDY: CT BRAIN WITHOUT CONTRAST REASON FOR EXAM: Male, 63 years old. Head injury RADIATION DOSAGE (If Supplied By Facility): DLP = ( 796.11 ) mGycm TECHNIQUE: Transaxial CT imaging of the brain was performed without administration of intravenous contrast material. Individualized dose optimization techniques were used for this CT. COMPARISON: CT head May 22, 2018 FINDINGS: There is a large left parietal parenchymal bleed and surrounding edema with involvement of the left temporal horn. Blood is present within the left lateral ventricle, fourth ventricle, left sylvian fissure, and left hemispheric sulci. There is 4 mm of [id number] midline shift. There is no hydrocephalus. Bilateral ethmoid sinus disease is present. Bilateral maxillary sinus mucosal thickening is present. The mastoid air cells are well aerated. There is no skull fracture. CT/Brain/Head without Contrast IMPRESSION: Large left hemispheric parenchymal bleed as described above with mass effect and mild left to right midline shift. Electronically Signed: Marvin Renee, at 20:56 EST Tel , Service support ,
--- NOTE | 2019-04-26 20:00 | RAD_ITS ---
STUDY: X-RAY CHEST REASON FOR EXAM: Male, 63 years old. Chest pain TECHNIQUE: Frontal view of the chest COMPARISON: X-Ray Chest May 22, 2018 FINDINGS: Endotracheal tube is place with the tip 5.6 cm from the agatha. Nasogastric tube is placed with the distal and headed over the left upper quadrant and incompletely visualized. There is moderate right greater than left pulmonary edema. There is no consolidation. There are no pleural effusions. There is no pneumothorax. The heart is normal in size. The visualized osseous structures are within normal limits. RAD/Chest 1 View (Portable) IMPRESSION: Moderate right greater than left pulmonary edema. Lines and tubes as described above. Electronically Signed: Marvin Renee, at 20:26 EST Tel , Service support ,
[2019-04-26 20:01] LABS: Bedside Glucose 145 mg/dL (70-110)
--- NOTE | 2019-04-26 20:01 | EKG12_ITS ---
Test Reason : UNRESPONSIVE Blood Pressure : / mmHG Vent. Rate : 145 BPM Atrial Rate : 163 BPM P-R Int : 136 ms QRS Dur : 130 ms QT Int : 262 ms P-R-T Axes : 000 074 -63 degrees QTc Int : 406 ms Sinus tachycardia Non-specific intra-ventricular conduction block T wave abnormality, consider inferior ischemia Abnormal ECG Confirmed by GIRMA TRAN, ASHISH ([id number]), video news editor CASSY HAAS ([id number]) on 05/04/2019 1:59:12 PM Referred By: OSMANI Confirmed By:ASHISH RAYO MD
--- NOTE | 2019-04-26 20:02 | CT_ITS ---
STUDY: CT CERVICAL SPINE WITHOUT CONTRAST REASON FOR EXAM: Male, 63 years old. Head injury RADIATION DOSAGE (If Supplied By Facility): CTDIvol = ( 29.38 ) mGy, DLP = ( 598.88 ) mGycm TECHNIQUE: High resolution transaxial imaging was performed without contrast material. Sagittal and coronal images were reconstructed. Individualized dose optimization techniques were used for this CT. COMPARISON: None FINDINGS: Normal craniovertebral junction. Normal anterior atlantoaxial articulation. Normal odontoid process. Normal cervical lordosis. Normal vertebral bodies and posterior osseous elements. C2-3: Normal endplates. Normal disc height and tiny central disc protrusion. Normal central canal and intervertebral neuroforamina. C3-4: Normal endplates. Normal disc height and morphology. Normal central canal and intervertebral neuroforamina. C4-5: Normal endplates. Normal disc height and small right paracentral disc protrusion. Normal central canal and intervertebral neuroforamina. C5-6: Mild anterior endplate spurring. Normal disc height and morphology. Normal central canal and intervertebral neuroforamina. C6-7: Normal endplates. Normal disc height and morphology. Normal central canal and intervertebral neuroforamina. C7-T1: Normal endplates. Normal disc height and morphology. Normal central canal and intervertebral neuroforamina. Normal visualized soft tissue structures. CT/Spine Cervical without Contras IMPRESSION: No evidence for acute fracture or subluxation. Mild spondylosis Electronically Signed: Marvin Senior MD at 20:52 EST , Service support ,
--- NOTE | 2019-04-26 20:02 | CT_ITS ---
STUDY: CT FACIAL BONES WITHOUT CONTRAST REASON FOR EXAM: Male, 63 years old. Head injury RADIATION DOSAGE (If Supplied By Facility): CTDIvol = ( 25.49 ) mGy, DLP = ( 603.20 ) mGycm TECHNIQUE: The patient was scanned in a multi detector CT scanner. Sagittal and coronal images were reconstructed. Individualized dose optimization techniques were used for this CT. COMPARISON: CT head April 26, 2019 FINDINGS: Normal soft tissue structures. Left orbital prosthesis noted. Normal nasal bones and anterior nasal spine. Normal facial bones. There is no demonstrated fracture. Normal visualized paranasal sinuses. Reference CT head performed the same day for intracranial pathology. CT/Sinus/Facial Bone IMPRESSION: No facial bony fractures. Reference CT head performed the same day for intracranial pathology description. Electronically Signed: Marvin Renee, at 21:00 EST Tel , Service support ,
[2019-04-26] MEDS: dilTIAZem 25 MG/5 ML Vial IV BOLUS (20:07)
[2019-04-26 20:10] LABS: Mean Corp Hgb Conc 33.3 g/dL (32-36); Mean Corpuscular Hgb 29.2 pg (27.0-32.0); Mean Corpuscular Volume 87.5 fL (80-94); Mean Platelet Vol. 11.2 fl (6.2-12.0); POSITIVE DIFFERENTIAL YES; Platelet Count 381 K/mm3 (150-450); RBC Distribution Width CV 17.5 % (11.6-14.6); RBC Distribution Width SD 56.2 fl (35.1-43.9); Red Blood Count 5.14 M/mm3 (4.6-6.2); White Blood Count 21.7 K/mm3 (4.4-11.0)
[2019-04-26 20:14] LABS: Bacteria 0 SEEN /hpf (None Seen); Mucous, Urine 0 SEEN /hpf (<or=2+); Squamous Epithelial Cells - UA 0 SEEN /hpf (0-5); White Blood Cells 0 SEEN /hpf (0-5)
[2019-04-26 20:18] LABS: Color, Urine Yellow (Yellow); Glucose, Dipstick Normal (Normal); Ketone-Dipstick 5 mg/dl (Negative); Leukocyte Esterase-Dipstick Negative /ul (Negative); Nitrite-Dipstick Negative (Negative); Occult Blood-Urine 250 /ul (Negative); Protein-Dipstick 500 mg/dl (Negative); Specific Gravity, Urine 1.015 (1.002-1.030); Urine Bilirubin Dipstick Negative (Negative); Urine Clarity Clear (Clear); Urine Urobilinogen Normal (Normal)
[2019-04-26 20:27] LABS: Red Blood Cells-Urine 0-5 SEEN /hpf (0-5)
[2019-04-26 20:29] LABS: AST(SGOT) 54 U/L (15-37); Alanine Aminotransfer ALT/SGPT 40 U/L (16-61); Albumin, Serum 3.4 g/dL (3.2-5.0); Alkaline Phosphatase 175 U/L (45-117); Anion Gap 21 (5-15); BUN 10 mg/dL (7-18); Bilirubin, Direct 0.54 mg/dL (0.00-0.30); Calcium,Total 9.3 mg/dL (8.5-10.1); Chloride 102 mmol/L (98-107); Creatinine, Serum 1.68 mg/dL (0.70-1.30); EST Glomerular Filtration Rate 44 mL/min (>60); Est Glom Filt Rate - Afr Amer 54 mL/min (>60); Estimated Creatinine Clearance 49.18 ml/min; Globulin 5.5 g/dL (2.2-4.2); Glucose 151 mg/dL (74-106); Potassium 2.3 mmol/L (3.5-5.1); Protein, Total 8.9 g/dL (6.4-8.2); Sodium Level 144 mmol/L (136-145)
--- NOTE | 2019-04-26 20:33 | ED.VISSUMM ---
- ER Visit Summary Date of Service: 04/26/19 Chief Complaint: Unresponsive History of Present Illness: The patient is a 63 M who presents with unresponsive tonight. Patient was found by his girlfriend approximately half hour prior to arrival unresponsive. Girlfriend states she has not seen him all day. EMS noted the patient did have blood on his face. EMS was bagging the patient on arrival. Patient was noted to be in A. fib with rapid ventricular response. EMS also checked her blood sugar and it was approximately 170. Physical Examination: Vital signs show tachycardia with a rate of 185. Blood pressure is 158/114. Respiratory rate was 28. Pulse oximeter is 81% on room air. It improved to 89% with bagging. Oral mucosa had large amount of blood. I did not visualize any lacerations. Heart was irregularly irregular and tachycardic. Lung sounds were equal bilaterally after the patient was intubated. Abdomen was soft. Bowel sounds are normal. There were no masses palpated. Test Results: CT scan of the brain was obtained. There is a intraparenchymal hematoma with bleeding into the lateral ventricle and subarachnoid space. CT scan of the facial bones and cervical spine was obtained. Portable chest x-ray was obtained. Endotracheal tube was in place. Orogastric tube was in place. There is no pneumothorax. Emergency Department Course and Treatment: Patient was given IV fluids. Patient was given etomidate and rocuronium. Patient was intubated with a 7.5 ET tube to 25 cm at the lip. Breath sounds were equal bilaterally. There is good color change on the end-tidal CO2. There is condensation in the tube. Oxygen saturation remained in the upper 90s after intubation. Patient was given a dose of Cardizem for his A. fib with rapid ventricular response. His heart rate improved. Patient was started on a Cardizem drip. Case was discussed with the transfer line at [facility]. Disposition: Transfer to [facility] Impression: 1. Left intraparenchymal hematoma 2. Atrial fibrillation with rapid ventricular response Critical care time 30 to 74 minutes. This included time spent talking to family, consultants, interpreting imaging results, interpreting lab results, and managing medications. This was separate from procedure time. This note was generated with Beibambooation software. It may contain incorrect words, spelling, and punctuation that were not noted in review of the chart prior to signing ED Disposition - Plan for ED Patient: Disposition: [facility][1] Diagnosis: Intracranial hemorrhage, Atrial fibrillation with rapid ventricular response Referrals: Ric Coronado PA [Primary Care Provider] -
[2019-04-26 20:35] LABS: Alcohol, Blood (Medical)-Serum < 3.0 mg/dL
[2019-04-26 20:37] LABS: Amphetamine Urine VISTA NEGATIVE (<1000 ng/mL); Barbiturate Urine VISTA NEGATIVE (< 200 ng/mL); Benzodiazepine Urine VISTA NEGATIVE (< 200 ng/mL); Cocaine Urine VISTA NEGATIVE (< 300 ng/mL); Ecstacy Urine VISTA NEGATIVE (< 500 ng/mL); Methadone Urine VISTA NEGATIVE (< 300 ng/mL); PCP Urine VISTA NEGATIVE (< 25 ng/mL); THC Urine VISTA NEGATIVE (< 50 ng/mL); Vista UDS pH Range 6
[2019-04-26] MEDS: dilTIAZem 25 MG/5 ML Vial 20 MG IV BOLUS (20:43)
[2019-04-26 20:44] LABS: Basophil 1 % (0-1); Lymphocyte 6 % (19-41); Monocyte 7 % (0-10); Neutrophil-Segmented 86 % (47-70)
[2019-04-26 20:45] LABS: Anisocytosis 1+; Platelet Estimate ADEQUATE (ADEQ); Red Cell Morphology N CHROM NORMAL (NORM C&C)
[2019-04-26 20:47] LABS: Absolute Neutrophil Count 18.7 X10^3/uL (2.0-7.7); Differential Indicated MANUAL DIFF; Scan Smear per Review Criteria MANUAL DIFF
[2019-04-26 21:01] LABS: International Normalized Ratio 1.5; Partial Thromboplast Time 35.3 Seconds (24.1-36.2); Prothrombin Time (Protime)PT. 17.9 SECONDS (11.7-14.9)
--- NOTE | 2019-04-26 21:16 | ED.RN ---
BEDSIDE REPORT GIVEN TO [facility]. [facility]IVERS VERBALIZE UNDERSTANDING. REPORT ATTEMPTED TO BE CALLED TO [facility] ED. WAS ON HOLD FOR 3 MINUTES WHEN [facility] ARRIVED TO ED
== END 2019-04-26 21:30 | disposition short-term general hospital (02) ==
PROVIDERS: Emergency Medicine; Emergency Provider Emergency Medicine; Family Provider Physician Assistant; PCP Physician Assistant
DX: I48.91 Unspecified atrial fibrillation (principal); I62.9 Nontraumatic intracranial hemorrhage, unspecified
CPT/HCPCS: 31500; 31720; 51702; 70450; 70486; 71045; 72125; 80048; 80076; 80307; 80320; 81001; 82962; 85025; 85610; 85730; 93005; 94002; 99251; 99285; J7030; A4216; G0463; G0480